=== PATIENT | male | born 1950 | race Caucasian/White ===

== ENCOUNTER → 2019-12-24 15:16 | Outpatient (BNVA) | payer MEDICARE, SELFPAY | PROVIDERS: PCP Internal Medicine Endocrinology, Diabetes & Metabolism; Visit Provider Urology | DX: Z76.89 Persons encountering health services in other specified circumstances (principal) | CPT/HCPCS: 99212 ==

== ENCOUNTER → 2020-02-05 09:13 | Outpatient (BNVA) | payer MEDICARE, SELFPAY | PROVIDERS: PCP Internal Medicine Endocrinology, Diabetes & Metabolism; Visit Provider Urology | DX: E29.1 Testicular hypofunction (principal) | CPT/HCPCS: Q3014 ==

== ENCOUNTER → 2020-08-04 15:39 | Outpatient (BNVA) | payer MEDICARE, SELFPAY | PROVIDERS: Visit Provider Urology | DX: Z13.89 Encounter for screening for other disorder (principal) | CPT/HCPCS: Q3014 ==

== ENCOUNTER → 2021-02-03 10:33 | Outpatient (BNVA) | payer MEDICARE, SELFPAY | PROVIDERS: Visit Provider Urology | DX: E29.1 Testicular hypofunction (principal); N41.9 Inflammatory disease of prostate, unspecified; R10.2 Pelvic and perineal pain | CPT/HCPCS: Q3014 ==

== ENCOUNTER → 2021-11-11 14:44 | Outpatient (BNVA) | payer MEDICARE, SELFPAY | PROVIDERS: PCP Internal Medicine; Visit Provider Urology | DX: N41.9 Inflammatory disease of prostate, unspecified (principal); E29.1 Testicular hypofunction; N32.0 Bladder-neck obstruction; N52.01 Erectile dysfunction due to arterial insufficiency | CPT/HCPCS: 99212 ==

== ENCOUNTER → 2022-05-17 15:13 | Outpatient (BNVA) | payer MEDICARE, SELFPAY | PROVIDERS: PCP Internal Medicine; Visit Provider Urology | DX: N41.9 Inflammatory disease of prostate, unspecified (principal); E29.1 Testicular hypofunction; N32.0 Bladder-neck obstruction; E11.42 Type 2 diabetes mellitus with diabetic polyneuropathy; Z79.82 Long term (current) use of aspirin; Z79.899 Other long term (current) drug therapy | CPT/HCPCS: 99212 ==

== ENCOUNTER → 2022-06-08 14:09 | Outpatient (BNVA) | payer MEDICARE, SELFPAY | PROVIDERS: PCP Internal Medicine; Visit Provider Urology | DX: C61 Malignant neoplasm of prostate (principal); E29.1 Testicular hypofunction; E11.40 Type 2 diabetes mellitus with diabetic neuropathy, unspecified | CPT/HCPCS: 11980; J3490 ==

== ENCOUNTER 2022-10-13 10:32 | Outpatient (AMB) | payer MEDICARE, SELFPAY ==
--- NOTE | 2022-10-13 10:32 | MHC.OFFVIS ---
Intake Intake Visit Reasons: 4M Testo(set) Intake Note: Pt presents as a telehealth appt for a 4 month follow up testosterone. Allergies acetaminophen [ACETAMINOPHEN] Allergy (Unknown, Verified 10/13/22 10:32) UNKNOWN ciprofloxacin [From CIPRO] Allergy (Unknown, Verified 10/13/22 10:32) UNKNOWN codeine [CODEINE] Allergy (Unknown, Verified 10/13/22 10:32) UNKNOWN erythromycin base [ERYTHROMYCIN BASE] Allergy (Unknown, Verified 10/13/22 10:32) UNKNOWN morphine [MORPHINE] Allergy (Unknown, Verified 10/13/22 10:32) UNKNOWN Acetamin Allergy (Unknown, Uncoded 10/13/22 10:32) Unknown Erythromycin Allergy (Unknown, Uncoded 10/13/22 10:32) Unknown Medication List - Last Reconciled 10/13/22 by Venkata Katz MD amlodipine 10 mg PO DAILY aspirin 81 mg PO DAILY atorvastatin 80 mg PO DAILY blood sugar diagnostic As directed carvedilol 6.25 mg PO BID docusate sodium 100 mg PO BID insulin glargine 50 units subcut DAILY insulin lispro (Humalog KwikPen (U-100) Insulin) subcut insulin syringe-needle U-100 (BD Insulin Syringe) As directed lancets As directed levothyroxine 125 mcg PO DAILY levothyroxine mcg PO lidocaine HCl 2% PO oxycodone 10 mg PO QID PRN oxycodone ER 0 mg PO pantoprazole 20 mg PO DAILY pen needle, diabetic As directed syringe with needle (Monoject TB) As directed tamsulosin 0.4 mg PO DAILY 90 days testosterone (Testim) 1 tube transdermal DAILY 30 days HPI HPI Comments History of Present Illness Details Dimitri is a pleasant male. He is a patient of Dr Davenport. He has seen flowing urologic conditions - prostatitis - hypogonadism - diabetes with neuropathy - bladder thickening Telemedicine Evaluation 15 min Consultation [facility] Video attempted Did not think that test pill was helpful Current T 233 Will trial Testim ointment Lower urinary tract symptoms Detrusor hypertrophy with impaired contractility Current therapy tamsulosin Labs Hypogonadism: Side effects with significant pelvic pain He presents today for further evaluation and followup of his hypogonadism, - had low T with treatment many years - has trialled different administration protocols with topical related and injectable November 2019, skin allergy to patches and gels Initial symptoms include erectile dysfunction Yes decreased libido Yes change in mood/depression Yes in muscle size/strength Yes increased fatigue/malaise Yes increased abdominal fat No tender breasts/gynecomastia No hair loss No osteopenia No The onset of symptoms has been gradual. Laboratory results 06/04 T 130 - PSA < 0.1, 07/05 T 150, 07/05 T 313, 09/04 T 545, 01/04 T 277, HCT 45, 09/07 500 - 01/05 898, 01/06 PSA 0.4 T 400, 05/11 T 143 P 0.2, 10/08 T 233 Current therapy includes gel/cream exogenous testosterone - does not like, Testopel not effective Prior therapy includes testosterone PFS Medical History Anal pain Diabetes mellitus, type II Erectile dysfunction due to arterial insufficiency External hemorrhoids HTN (hypertension) Hypogonadism in male Infective urethritis Prostatitis Urethral stricture Surgical History History of surgery Review of Systems Const All systems reviewed & are unremarkable except as noted in HPI and below Reports no additional complaints Resp Reports no additional complaints GI Reports no additional complaints Reports as per HPI Musc Reports no additional complaints Physical Exam Telemedicine evaluation Appropriate responses Regular breathing rate and rhythm HEENT Head: Yes normal to inspection Ears: hearing grossly normal bilaterally Eyes General: appearance normal, both eyes and all related structures Neck Neck: Yes normal visual inspection Chest Chest palpation & inspection: normal inspection of the chest Resp Effort & Inspection: normal respiratory effort and able to speak in complete sentences Assessment & Plan Assessment & Plan (1) Hypogonadism in male: Code(s): E29.1 - Testicular hypofunction (2) Pelvic pain in male: Code(s): R10.2 - Pelvic and perineal pain Plan One month follow-up tele Medications: New testosterone (Testim) 1 tube transdermal DAILY 30 days 150 grams 0RF E29.1 - Testicular hypofunction Patient Instructions: Imaging studies, laboratory and physical exam results were discussed and reviewed in detail. No major barriers to patient understanding were identified. An opportunity to ask questions regarding the treatment plan was provided. All questions were answered. The patient expressed understanding and agreement with the above treatment plan. The patient is aware they should contact our office by phone for worsening of their current condition or the appearance of new urologic symptoms. Compliance is encouraged with any medications and followup testing that is ordered. It is a privilege to participate in the urologic care of your patient. If you have any questions or concerns regarding treatment for the above conditions, or other urologic issues, please do not hesitate to contact me. The office telephone contact is [phone]. This note is constructed using voice recognition software. While every effort has been made to ensure accuracy real estate account executive errors may have been included. Yours sincerely, Dr Venkata Katz MD, [facility] - Urology Providers of Expert, Compassionate Care for the Genitourinary System Telehealth Telehealth Location of provider rendering services: practice address Location of patient: address on file Patient Identification confirmed using: Name, : Yes Telehealth method: video Patient verbally consented to treatment: Yes Patient verbally consented to billing insurance company: Yes Patient informed of any privacy concerns related to visit: Yes Coding Level of Care Code Tele Est Pt Level 4 (47633) Diagnoses Hypogonadism in male E29.1 Pelvic pain in male R10.2
== END 2022-10-13 11:53 | disposition home or self-care (01) ==
LOC: HO.HUSH 10:32
PROVIDERS: PCP Internal Medicine; Visit Provider Urology
DX: E29.1 Testicular hypofunction (principal); R10.2 Pelvic and perineal pain
CPT/HCPCS: 99214

== ENCOUNTER → 2022-10-13 10:32 | Outpatient (BNVA) | payer MEDICARE, SELFPAY | PROVIDERS: PCP Internal Medicine; Visit Provider Urology ==

== ENCOUNTER 2022-11-30 09:20 | Outpatient (AMB) | payer MEDICARE, SELFPAY ==
--- NOTE | 2022-11-30 09:33 | A.OFFVIS_ITS ---
Intake Intake Visit Reasons: 4w follow up Intake Note: Patient is present for Telephone Follow up Urology Med: Tamsulosin (Patient states he is no longer taking Testosterone and wishes not to start again) Antibiotic Allergy: Cipro, Erythromycin Blood Thinner: Aspirin Pharmacy: [facility] Allergies acetaminophen [ACETAMINOPHEN] Allergy (Unknown, Verified 11/30/22 09:35) UNKNOWN ciprofloxacin [From CIPRO] Allergy (Unknown, Verified 11/30/22 09:35) UNKNOWN codeine [CODEINE] Allergy (Unknown, Verified 11/30/22 09:35) UNKNOWN erythromycin base [ERYTHROMYCIN BASE] Allergy (Unknown, Verified 11/30/22 09:35) UNKNOWN morphine [MORPHINE] Allergy (Unknown, Verified 11/30/22 09:35) UNKNOWN Acetamin Allergy (Unknown, Uncoded 11/30/22 09:35) Unknown Erythromycin Allergy (Unknown, Uncoded 11/30/22 09:35) Unknown Medication List - Last Reconciled 11/30/22 by Venkata Katz MD amlodipine 10 mg PO DAILY aspirin 81 mg PO DAILY atorvastatin 80 mg PO DAILY blood sugar diagnostic As directed carvedilol 6.25 mg PO BID docusate sodium 100 mg PO BID insulin glargine 50 units subcut DAILY insulin lispro (Humalog KwikPen (U-100) Insulin) subcut insulin syringe-needle U-100 (BD Insulin Syringe) As directed lancets As directed levothyroxine 125 mcg PO DAILY levothyroxine mcg PO lidocaine HCl 2% PO oxycodone 10 mg PO QID PRN oxycodone ER 0 mg PO pantoprazole 20 mg PO DAILY pen needle, diabetic As directed syringe with needle (Monoject TB) As directed HPI HPI Comments History of Present Illness Details Dimitri is a pleasant male. He is a patient of Dr Davenport. He has seen flowing urologic conditions - prostatitis - hypogonadism - diabetes with neuropathy - bladder thi ckening Telemedicine Evaluation 15 min Consultation [employer] Video attempted Had undergone testosterone seed implant previously Current off alpha blockers Happy with current voiding parameters Dealing with episode of gout Follow-up 12 months Lower urinary tract symptoms Detrusor hypertrophy with impaired contractility Prior therapy tamsulosin Hypogonadism: Side effects with significant pelvic pain He presents today for further evaluation and followup of his hypogonadism, - had low T with treatment many years - has trialled different administration protocols with topical related and injectable November 2019, skin allergy to patches and gels Initial symptoms include erectile dysfunction Yes decreased libido Yes change in mood/depression Yes in muscle size/strength Yes increased fatigue/malaise Yes The onset of symptoms has been gradual. Laboratory results 06/04 T 130 - PSA < 0.1, 07/05 T 150, 07/05 T 313, 09/04 T 545, 01/04 T 277, HCT 45, 09/07 500 - 01/05 898, 01/06 PSA 0.4 T 400, 05/11 T 143 P 0.2, 10/08 T 233 Current therapy includes gel/cream exogenous testosterone - does not like, Testopel not effective Prior therapy includes testosterone [facility] Medical History Diabetes mellitus, type II HTN (hypertension) Erectile dysfunction due to arterial insufficiency Hypogonadism in male Infective urethritis Urethral stricture Prostatitis External hemorrhoids Anal pain Surgical History History of surgery Review of Systems Const All systems reviewed & are unremarkable except as noted in HPI and below Reports no additional complaints Resp Reports no additional complaints GI Reports no additional complaints Reports as per HPI Musc Reports no additional complaints Physical Exam Telemedicine evaluation Appropriate responses Regular breathing rate and rhythm HEENT Head: Yes normal to inspection Ears: hearing grossly normal bilaterally Eyes General: appearance normal, both eyes and all related structures Neck Neck: Yes normal visual inspection Chest Chest palpation & inspection: normal inspection of the chest Resp Effort & Inspection: normal respiratory effort and able to speak in complete sentences Assessment & Plan Assessment & Plan (1) Hypogonadism in male: Code(s): E29.1 - Testicular hypofunction (2) Bladder outlet obstruction: Code(s): N32.0 - Bladder-neck obstruction Medications: Discontinued tamsulosin Discontinued Reason: Patient Completed Course 0.4 mg PO DAILY 90 days 90 caps 1RF N32.0 - Bladder-neck obstruction testosterone (Testim) Discontinued Reason: Patient no longer taking 1 tube transdermal DAILY 30 days 150 grams 0RF E29.1 - Testicular hypofunction Telehealth Telehealth Location of provider rendering services: practice address Location of patient: address on file Patient Identification confirmed using: Name, : Yes Telehealth method: video Patient verbally consented to treatment: Yes Patient verbally consented to billing insurance company: Yes Patient informed of any privacy concerns related to visit: Yes Coding Level of Care Code Tele Est Pt Level 3 (80810) Diagnoses Hypogonadism in male E29.1 Bladder outlet obstruction N32.0
== END 2022-11-30 10:02 | disposition home or self-care (01) ==
LOC: HO.HUSH 09:20
PROVIDERS: PCP Internal Medicine; Visit Provider Urology
DX: E29.1 Testicular hypofunction (principal); N32.0 Bladder-neck obstruction
CPT/HCPCS: 99213

== ENCOUNTER → 2022-11-30 09:20 | Outpatient (BNVA) | payer MEDICARE, SELFPAY | PROVIDERS: PCP Internal Medicine; Visit Provider Urology ==

== ENCOUNTER 2023-04-17 12:51 | Outpatient (REF) | payer MEDICARE, SELFPAY ==
[2023-04-17 16:17] LABS: Hematocrit 43.9 % (42.0-52.0)
[2023-04-17 16:45] LABS: Appearance Urine Clear; Color Urine Yellow; Glucose Urine UA 250 mg/dL (Negative); Leukocyte Esterase Urine Negative (Negative); Nitrite Urine Negative (Negative); PH 6.5 (5.0-9.0); Specific Gravity - Urine 1.015 (1.005-1.025); Urine Blood Negative (Negative); Urine Ketones Negative (Negative); Urine Protein >=1000 (4+) mg/dL (Neg-Trace)
[2023-04-17 16:48] LABS: Bacteria Urine None Seen (None Seen); Prostate Specific Antigen 0.18 ng/mL (<0.05-4.0); RBC Urine 0-2 /HPF (0-2); Squamous Epithelial Cell Urine 0-2 /HPF (0-2); WBC Urine 0-5 /HPF (0-5)
[2023-04-22 15:53] LABS: Testosterone, Total 180 ng/dL (250-1100)
== END 2023-04-17 12:52 | disposition home or self-care (01) ==
LOC: HO.HMGCLDS 12:51
PROVIDERS: PCP Internal Medicine; Visit Provider Urology
DX: R10.2 Pelvic and perineal pain (principal); N41.9 Inflammatory disease of prostate, unspecified; N32.0 Bladder-neck obstruction; E29.1 Testicular hypofunction; C61 Malignant neoplasm of prostate; Z12.5 Encounter for screening for malignant neoplasm of prostate
CPT/HCPCS: 36415; 81001; 84153; 84403; 85014; 87086

== ENCOUNTER 2023-11-28 13:19 | Outpatient (AMB) | payer MEDICARE, SELFPAY ==
--- NOTE | 2023-11-28 13:57 | A.OFFVIS_ITS ---
Intake Visit Reasons: 1y follow up Intake Note: Patient is present for Follow up Prostatitis Urology Med: Tamsulosin, Testosterone Antibiotic Allergy: Cipro, Erythromycin Blood Thinner: Aspirin Personal Development Educator Required: No Accompanied by: Self / Same As Patient Allergies acetaminophen [ACETAMINOPHEN] Allergy (Unknown, Verified 11/28/23 14:02) UNKNOWN ciprofloxacin [From CIPRO] Allergy (Unknown, Verified 11/28/23 14:02) UNKNOWN codeine [CODEINE] Allergy (Unknown, Verified 11/28/23 14:02) UNKNOWN erythromycin base [ERYTHROMYCIN BASE] Allergy (Unknown, Verified 11/28/23 14:02) UNKNOWN morphine [MORPHINE] Allergy (Unknown, Verified 11/28/23 14:02) UNKNOWN Acetamin Allergy (Unknown, Uncoded 11/28/23 14:02) Unknown Erythromycin Allergy (Unknown, Uncoded 11/28/23 14:02) Unknown HPI Comments Details: Dimitri is a pleasant male. He is a patient of Dr Davenport. He has seen flowing urologic conditions - prostatitis - hypogonadism - diabetes with neuropathy - bladder thickening Current off alpha blockers Feels voiding parameters have slowed down Recommend office cystoscopy Would require diazepam Has upcoming vacation for rectal fissure and hemorrhoids Dealing with episode of gout Follow-up 12 months Lower urinary tract symptoms Detrusor hypertrophy with impaired contractility Prior therapy tamsulosin Hypogonadism: Side effects with significant pelvic pain He presents today for further evaluation and followup of his hypogonadism, - had low T with treatment many years - has trialled different administration protocols with topical related and injectable November 2019, skin allergy to patches and gels Initial symptoms include erectile dysfunction Yes decreased libido Yes change in mood/depression Yes in muscle size/strength Yes increased fatigue/malaise Yes The onset of symptoms has been gradual. Laboratory results 06/04 T 130 - PSA < 0.1, 07/05 T 150, 07/05 T 313, 09/04 T 545, 01/04 T 277, HCT 45, 09/07 500 - 01/05 898, 01/06 PSA 0.4 T 400, 05/11 T 143 P 0.2, 10/08 T 233, 04/11 180 Current therapy includes gel/cream exogenous testosterone - does not like, Testopel not effective Prior therapy includes testosterone [facility] Medical History Diabetes mellitus, type II HTN (hypertension) Erectile dysfunction due to arterial insufficiency Hypogonadism in male Infective urethritis Urethral stricture Prostatitis External hemorrhoids Anal pain Surgical History History of surgery Review of Systems Const Denies chills and Denies fever(s) Card Reports no additional complaints and Denies syncope Resp Denies cough GI Denies abdominal pain and Denies heartburn Reports as per HPI and Denies change in libido Neuro Denies syncope Psych Denies change in libido Endo Denies change in libido Physical Exam Const General: cooperative, healthy appearing, comfortable and no acute distress Orientation/consciousness: patient oriented x3 HEENT Face and sinus: Yes normal facial exam Mouth: moist mucous membranes Neck Neck: Yes normal visual inspection, Yes full ROM and Yes trachea midline Chest Chest palpation & inspection: normal inspection of the chest Resp Effort & Inspection: normal respiratory effort, able to speak in complete sentences and no respiratory distress GI Inspection: Yes normal to inspection Back/Spine/Pelvis Cervical Spine: normal cervical lordosis Thoracic/Lumbar Spine: thoracic and lumbar spine normal to inspection Skin General skin exam: no rashes or lesions noted Neuro General: patient oriented x3, gait normal, tone normal and moves all extremities Extrem General: Yes normal to inspection and Yes capillary refill normal Assessment & Plan Assessment & Plan (1) Bladder outlet obstruction: Code(s): N32.0 - Bladder-neck obstruction Category: Medical (2) Pelvic pain in male: Code(s): R10.2 - Pelvic and perineal pain Category: Medical (3) Hypogonadism in male: Code(s): E29.1 - Testicular hypofunction Category: Medical Plan Office cystoscopy Medications: New diazepam Take medication after arrival at office 2 mg PO BID PRN 2 tabs 0RF anxiety 1 day N32.0 - Bladder-neck obstruction, R45.89 - Other symptoms and signs involving emotional state Discontinued testosterone (Testim) Discontinued Reason: Patient Completed Course 1 packet transdermal DAILY 30 days 150 grams 5RF E29.1 - Testicular hypofunction Patient Instructions: Imaging studies, laboratory and physical exam results were discussed and reviewed in detail. No major barriers to patient understanding were identified. An opportunity to ask questions regarding the treatment plan was provided. All questions were answered. The patient expressed understanding and agreement with the above treatment plan. The patient is aware they should contact our office by phone for worsening of their current condition or the appearance of new urologic symptoms. Compliance is encouraged with any medications and followup testing that is ordered. It is a privilege to participate in the urologic care of your patient. If you have any questions or concerns regarding treatment for the above conditions, or other urologic issues, please do not hesitate to contact me. The office telephone contact is [phone]. This note is constructed using voice recognition software. While every effort has been made to ensure accuracy speech correction assistant errors may have been included. Yours sincerely, Dr Venkata Katz MD, [facility] - Urology Providers of Expert, Compassionate Care for the Genitourinary System Coding Level of Care Code Est Pt Level 4 (72341) Diagnoses Bladder outlet obstruction N32.0 Pelvic pain in male R10.2 Hypogonadism in male E29.1
== END 2023-11-28 14:29 | disposition home or self-care (01) ==
PROVIDERS: PCP Internal Medicine; Visit Provider Urology
DX: N32.0 Bladder-neck obstruction (principal); R10.2 Pelvic and perineal pain; E29.1 Testicular hypofunction
CPT/HCPCS: 99214

== ENCOUNTER → 2023-11-28 13:19 | Outpatient (BNVA) | payer MEDICARE, SELFPAY | PROVIDERS: PCP Internal Medicine; Visit Provider Urology | DX: E29.1 Testicular hypofunction (principal); N32.89 Other specified disorders of bladder; N32.0 Bladder-neck obstruction; R10.2 Pelvic and perineal pain; E11.40 Type 2 diabetes mellitus with diabetic neuropathy, unspecified | CPT/HCPCS: 99212 ==

== ENCOUNTER 2023-12-28 10:51 | Outpatient (AMB) | payer MEDICARE, SELFPAY ==
--- NOTE | 2023-12-28 11:06 | A.OFFVIS_ITS ---
Intake Visit Reasons: cysto Intake Note: Patient is Present for Cystoscopy Urology Med: Tamsulosin Antibiotic Allergy: Erythromycin, Cipro Blood Thinner: Aspirin URO- G Disposable Cystoscope lot: [id number] exp:06/27/2026 Allergies acetaminophen [ACETAMINOPHEN] Allergy (Unknown, Verified 11/28/23 14:02) UNKNOWN ciprofloxacin [From CIPRO] Allergy (Unknown, Verified 11/28/23 14:02) UNKNOWN codeine [CODEINE] Allergy (Unknown, Verified 11/28/23 14:02) UNKNOWN erythromycin base [ERYTHROMYCIN BASE] Allergy (Unknown, Verified 11/28/23 14:02) UNKNOWN morphine [MORPHINE] Allergy (Unknown, Verified 11/28/23 14:02) UNKNOWN Acetamin Allergy (Unknown, Uncoded 11/28/23 14:02) Unknown Erythromycin Allergy (Unknown, Uncoded 11/28/23 14:02) Unknown HPI Comments Details: Dimitri is a pleasant male. He is a patient of Dr Davenport. He has seen flowing urologic conditions - prostatitis - hypogonadism - diabetes with neuropathy - bladder thickening Here for office cystoscopy Tightening of the prostate Recommend prostate procedure Given prostate size would lean towards TURP with plasma button Lower urinary tract symptoms Detrusor hypertrophy with impaired contractility Prior therapy tamsulosin Hypogonadism: Side effects with significant pelvic pain He presents today for further evaluation and followup of his hypogonadism, - had low T with treatment many years - has trialled different administration protocols with topical related and injectable November 2019, skin allergy to patches and gels Initial symptoms include erectile dysfunction Yes decreased libido Yes change in mood/depression Yes in muscle size/strength Yes increased fatigue/malaise Yes The onset of symptoms has been gradual. Laboratory results 06/04 T 130 - PSA < 0.1, 07/05 T 150, 07/05 T 313, 09/04 T 545, 01/04 T 277, HCT 45, 09/07 500 - 01/05 898, 01/06 PSA 0.4 T 400, 05/11 T 143 P 0.2, 10/08 T 233, 04/11 180 Current therapy includes gel/cream exogenous testosterone - does not like, Testopel not effective Prior therapy includes testosterone PFSH Medical History Diabetes mellitus, type II HTN (hypertension) Erectile dysfunction due to arterial insufficiency Hypogonadism in male Infective urethritis Urethral stricture Prostatitis External hemorrhoids Anal pain Surgical History History of surgery Review of Systems Const Denies chills and Denies fever(s) Card Reports no additional complaints and Denies syncope Resp Denies cough GI Denies abdominal pain and Denies heartburn Reports as per HPI and Denies change in libido Neuro Denies syncope Psych Denies change in libido Endo Denies change in libido Physical Exam Const General: cooperative, healthy appearing, comfortable and no acute distress Orientation/consciousness: patient oriented x3 HEENT Face and sinus: Yes normal facial exam Mouth: moist mucous membranes Neck Neck: Yes normal visual inspection, Yes full ROM and Yes trachea midline Chest Chest palpation & inspection: normal inspection of the chest Resp Effort & Inspection: normal respiratory effort, able to speak in complete sentences and no respiratory distress GI Inspection: Yes normal to inspection Back/Spine/Pelvis Cervical Spine: normal cervical lordosis Thoracic/Lumbar Spine: thoracic and lumbar spine normal to inspection Skin General skin exam: no rashes or lesions noted Neuro General: patient oriented x3, gait normal, tone normal and moves all extremities Extrem General: Yes normal to inspection and Yes capillary refill normal Office Procedures Cystoscopy Consent Discussed risk and benefit or proposed procedure with the patient. Information consent for procedure given to the patient. Discussed technical aspects, risks, benefits and alternatives in full. Addressed all of the patient's questions and concerns regarding the procedure. The patient demonstrated knowledge and understanding. They wish to proceed with this procedure. Preparation The patient was prepped in the usual manner. A knife setter grinder machine was present and in the room. Genitalia was prepped with betadine solution in a sterile manner. Lidocaine Jelly 2% was placed into the urethra and 16Fr flexible Olympus cystoscope was inserted into the meatus after adequate lubrication. Procedure Cystoscopy performed using a disposable Urovue digital 16 Tamazight cystoscope. Meatus circumcised Urethra anterior and posterior urethra Prostatic Urethra bladder outlet obstruction Bladder examination with retroflexion of cystoscope Bladder Orifices normal shape and position Bladder Capacity normal Trabeculations grade grade 1 Cellule Formation - Diverticulum Formation - Mucosal Erythema - Bladder Tumor - [id number] DISPOSABLE SCOPE URO-G FLEXIBLE SCOPE Procedure code (CPT) selection complete Office Meds lidocaine HCl 2 % mucosal jelly in applicator Performing Provider: Venkata Katz MD Performing Location: [facility] [place] [facility] [place] [facility] Administered by: Sreedhar Wei LPN on 12/28/23 11:49 Dose Route Admin Location Dispensed Lot Number Expiration Date NDC [employer] 10 mL intra-urethral 10 mL nitrofurantoin monohydrate/macrocrystals 100 mg capsule Performing Provider: Venkata Katz MD Performing Location: [facility] [place] [facility] Administered by: Sreedhar Wei LPN on 12/28/23 11:49 Dose Route Admin Location Dispensed Lot Number Expiration Date NDC [employer] 100 mg PO 1 cap naproxen 500 mg tablet Performing Provider: Venkata Katz MD Performing Location: [facility] [place] [facility] Administered by: Sreedhar Wei LPN on 12/28/23 11:49 Dose Route Admin Location Dispensed Lot Number Expiration Date NDC [employer] 500 mg PO 1 tab Assessment & Plan Assessment & Plan (1) Bladder outlet obstruction: Code(s): N32.0 - Bladder-neck obstruction Category: Medical Plan We discussed the nature of the decision and reasonable options for performing a prostate intervention. Interventions include TURP, GreenLight laser enucleation of the prostate, GreenLight laser ablation of the prostate, transurethral incision of the prostate, and I-Tend prostate procedure. Options such as medical therapy were discussed. The relative uncertainties and benefits related to each alternate procedure were adequately discussed. General surgical risks including, but not limited to, pain, bleeding, infection, myocardial infarction, pulmonary embolus, deep vein thrombosis and cerebrovascular accident which may result in further hospitalization were discussed. Full disclosure of the procedure as well as all major risks, benefits and complications were discussed including but not limited to damage to the urethra or bladder neck, recurrent BPH, retrograde ejaculation, bladder infection, urge, de tj frequency, incomplete emptying, dysuria, remote chance of erectile dysfunction, epididymitis, and meatal stenosis. The success rate of the procedure was discussed. Success of the procedure in the short-term does not necessarily guarantee that long-term success will be maintained. Suitable follow up will need to be maintained. The patient showed understanding of discussion. An opportunity was provided for questions to be answered and wishes to proceed with the following procedure. - prostate TURP - plasma button Orders: Orders AMB Cystoscopy 12/28/23 N32.0 - Bladder-neck obstruction AMB Urinalysis Automated 12/28/23 Z13.9 - Encounter for screening, unspecified Patient Instructions: Imaging studies, laboratory and physical exam results were discussed and reviewed in detail. No major barriers to patient understanding were identified. An opportunity to ask questions regarding the treatment plan was provided. All questions were answered. The patient expressed understanding and agreement with the above treatment plan. The patient is aware they should contact our office by phone for worsening of their current condition or the appearance of new urologic symptoms. Compliance is encouraged with any medications and followup testing that is ordered. It is a privilege to participate in the urologic care of your patient. If you have any questions or concerns regarding treatment for the above conditions, or other urologic issues, please do not hesitate to contact me. The office telephone contact is [phone]. This note is constructed using voice recognition software. While every effort has been made to ensure accuracy teacher visually impaired errors may have been included. Yours sincerely, Dr Venkata Katz MD, [facility] - Urology Providers of Expert, Compassionate Care for the Genitourinary System Coding Level of Care Code Est Pt Level 4 (78005) Diagnoses Bladder outlet obstruction N32.0 CPT Codes Cystoscopy - CPT: [id number] ([id number])
== END 2023-12-28 12:29 | disposition home or self-care (01) ==
LOC: HO.HUSH 10:51
PROVIDERS: PCP Internal Medicine; Visit Provider Urology
DX: N32.0 Bladder-neck obstruction (principal)
CPT/HCPCS: 52000; 99214

== ENCOUNTER → 2023-12-28 10:51 | Outpatient (BNVA) | payer MEDICARE, SELFPAY | PROVIDERS: PCP Internal Medicine; Visit Provider Urology | DX: N32.0 Bladder-neck obstruction (principal) | CPT/HCPCS: 52000; 99212 ==

== ENCOUNTER 2024-02-13 05:38 | Outpatient (REF) | payer MEDICARE, SELFPAY ==
[2024-02-13 05:41] LABS: MANUAL DIFF FLAG NO
[2024-02-13 06:25] LABS: Anion Gap 17 (12-20); Blood Urea Nitrogen 90 mg/dL (9-16); Calcium 8.4 mg/dL (8.4-10.2); Carbon Dioxide 31 mmol/L (22-29); Chloride 86 mmol/L (96-108); Estimated Glomerular Filt Rate 20; Glucose Random 122 mg/dL (60-115); Potassium 4.3 mmol/L (3.3-5.1); Sodium 130 mmol/L (135-145)
[2024-02-13 06:28] LABS: Basophils Percent Auto 0.3 % (0-2); Eosinophils Absolute Auto 0.4 X10*3/uL (0.0-0.4); Eosinophils Percent Auto 4.8 % (0-4); Hematocrit 29.8 % (42.0-52.0); Hemoglobin 10.3 g/dl (14.0-18.0); Imm Gran Abs Auto 0.04 X10*3/uL (0.00-0.03); Imm Gran Pct Auto 0.5 % (0.0-0.4); Lymphocytes Percent Auto 11.1 % (20-40); Mean Corpuscular HGB Conc 34.6 g/dl (31.0-36.0); Mean Corpuscular Hemoglobin 30.7 pg (27.0-33.0); Mean Corpuscular Volume 88.7 fL (80.0-98.0); Mean Platelet Volume 10.8 fL (9.4-12.4); Monocytes Absolute Auto 0.9 X10*3/uL (0.1-1.2); Monocytes Percent Auto 10.1 % (2-11); Neutrophils Absolute Auto 6.4 x10*3/uL (2.0-8.3); Neutrophils Percent Auto 73.2 % (45-73); Platelet Count 276 X10*3/uL (160-400); Red Blood Count 3.36 X10*6/uL (4.60-5.80); Red Cell Distribution Width 13.8 % (11.0-16.0); White Blood Count 8.7 X10*3/uL (4.8-10.8)
[2024-02-13 07:31] LABS: Estimated Average Glucose 163 mg/dL; Hemoglobin A1C 163.1124 umol/L; Hemoglobin A1c % 7.3 % (<6.0); Total Hemoglobin (HGBA1C) 2871.4278 umol/L
== END 2024-02-13 05:39 | disposition home or self-care (01) ==
LOC: HO.MMNH1L 05:38
DX: I10 Essential (primary) hypertension (principal); E11.9 Type 2 diabetes mellitus without complications
CPT/HCPCS: 36415; 80048; 83036; 85025

== ENCOUNTER 2024-03-31 11:45 | Day surgery (SDC) | payer MEDICARE, SELFPAY ==
--- OUTSIDE RECORDS SUMMARY | 2024-03-04 11:13 | XMS_ITS ---
Author Organization [facility] Address [address] [place] [address] Phone Care Team Providers Care Batt Machine Operator Name Role Phone Praful Davenport MD Primary Care Provider [phone] [facility], Unavailable [phone] Plan of Treatment No Plan of Treatment Recorded Assessments Includes: Assessments for all patient encounters No Assessments Recorded Medical Equipment - Implanted Devices Includes: Current and historical Devices No Medical Equipment Recorded Medications Administered Includes: Administered Medications in patient's chart No Administered Medications Recorded Results Includes: Results from 03/04/2023 through 03/04/2024 No Results Recorded For Specified Dates History of Present Illness History of Present Illness not supported for this document type No History of Present Illness Recorded Social History No Social History Recorded - Smoking Status Unknown Medical History Includes: Medical History in patient's chart No Medical History Recorded Family History Includes: Family History in patient's chart No Family History Recorded Review of Systems Review of Systems not supported for this document type No Review of Systems Recorded Mental Status No Mental Status Recorded Functional Status No Functional Status Recorded Physical Exam Physical Exam not supported for this document type No Physical Exam Recorded Insurance Includes: Active Insurance Policies Plan Name Member ID Group # Subscriber Relationship Effect luis Dates 1 - [facility] [id number] Dimitri Snow Self Clinical Notes Includes: Signed Clinical Notes starting from 02/26/2022 No Clinical Notes Recorded
--- OUTSIDE RECORDS SUMMARY | 2024-03-04 11:14 | XMS_ITS ---
Care Plan - [facility] Created on: March 04, 2024 Dimitri Snow : 1950 Sex: Male Author Organization [facility] Address [address] [place] [address] Phone Care Team Providers Care Helicopter Officer Name Role Phone Praful Davenport MD Primary Care Provider [phone] [facility] Unavailable [phone]
--- OUTSIDE RECORDS SUMMARY | 2024-03-04 11:14 | XMS_ITS | Data Portability ---
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 Plan of Treatment Reminders Order Date Submit Date Provider Last Modified By Organization Details Last Modified Time Details Appointments None record ed. Lab None record ed. Referral None record ed. Procedures None record ed. Surgeries None record ed. Imaging None record ed. Medication Orders None record ed. Patient TargetsNo targets recorded. Patient InstructionsNo instructions recorded. Reason for Referral None Reported. Results Created Date Observation Date Name Description Value Unit Range Abnormal Flag Note LastModifiedBy Organization Detail LastModifiedTime 01/11/2011/04/2019 US, thyro id No observ ation record ed. [facility] [address] [place] [address], [id number], 01/14/2024 08:50:42 01/14/2010/04/2023 US, neck, soft tissu e No observ ation record ed. reppsteiner Not Available 12/18 09:42:47 01/14/20 24 07/20/2022 US, neck, soft tissu e No observ ation record ed. reppsteiner Not Available 12/18 09:42:47 01/14/20 24 11/04/2019 CT, neck, soft tissu e, w/ contr ast No observ ation record ed. reppsteiner Not Available 12/18 09:42:47 01/16/2010/04/2023 US, neck, soft tissu e No observ ation record ed. [facility] ([facility]) [address] [place], [address], 01/17/2024 12:46:44 Result Notes None recorded. Problems Name Problem SNOMED Code Status Onset Date Resolution Date Notes Provider Name and Address Organization Details Recorded Time Stomatitis 58957485 Active 2015 Oral thrush ; Note: Date Diagno sed: 016 4:50 PM (B37.0 ) Not Available [facility] 4 02:57:04 Candidiasis of mouth 59808625 Active 2015 Oral thrush ; Note: Date Diagno sed: 016 4:50 PM (B37.0 ) Not Available [facility] 4 02:57:04 Dysphagia 56258364 Active 2015 Dyspha shelby, unspec ified; Note: Date Diagno sed: 016 4:50 PM (R13.1 0) Not Available [facility] 4 02:57:05 Gastroesophag eal reflux disease without esophagitis 933454361 Active 2023 HEVER BROWER MD [address] [place] [address], [phone] , [facility] - [facility] 14:09:22 Problem Notes None recorded. Procedures Surgical History Date Name Laterality Status Provider Name and Address Organization Details Recorded Time 01/07/2024 FFL_RE completed HEVER BROWER MD [address] [place] [address], [phone], [place] - [facility] 01/07/2024 14:09:36 Imaging Results Imaging Date Name Status LastModified by Organiz ation Details LastModified Time 11/04/2019 US, thyroid completed [facility] ([facility]) [address] [place], [address], 01/14/2024 08:50:42 10/04/2023 US, neck, soft tissue completed repteiner Information not available 01/15/2024 09:42:47 07/20/2022 US, neck, soft tissue completed Information not available 01/15/2024 09:42:47 11/04/2019 CT, neck, soft tissue, w/ contrast completed Information not available 01/15/2024 09:42:47 10/04/2023 US, neck, soft tissue completed reppsteiner [facility] ([facility]) [address] [place], [address], 01/17/2024 12:46:44 Procedure Notes None recorded. Medical Equipment None Reported. Allergies Allergen ID Allergen Name Allergen Category Reaction Reaction Severity Criticality Documentation Date Start Date Code Code System Note Provider Name and Address Organization Details Recorded Time 916203 codeine sulfate medicatio n other Not available Not available 07/31/2023 28995 RxNorm React ion: unkno wn, unspe cifie d;; Not Available [facility] 4 01:23:09 737631 morphine medicatio n other Not available Not available 07/31/2023 7052 RxNorm React ion: unkno wn, unspe cifie d;; Not Available [facility] 4 01:23:10 Medications Name Sig Start Date Stop Date Status Note LastModified by Organization Details LastModified Time sure comfort pen needles 32gx5/32 32g x 4 mm misc active Not Available Not Available Not Available losartan 50 mg tablet 2015 active Medicati on ID: [id number] D uration Value: 30 Brand Name: losartan Send Method: E-Prescr ibed Sub s Allowed: subs OK Speci al Instruct ion: take 1 tablet by mouth once daily Me dication GenericN tana: losartan Not Available Not Available Not Available metformin 500 mg tablet 2015 active Medicati on ID: [id number] D uration Value: 30 Brand Name: metformi n Send Method: E-Prescr ibed Sub s Allowed: subs OK Speci al Instruct ion: take 1 tablet by mouth daily with BREAKFAS T Medica tionGene ricName: metformi n Not Available Not Available Not Available atorvasta tin 80 mg tablet TAKE 1 TABLET BY MOUTH AT BEDTIME active Not Available Not Available No t Available carvedilo l 25 mg tablet active Not Available Not Available Not Available nystatin 100,000 unit/mL oral suspensio n Take 5 ml by mouth four times a day 2015 active Medicati on ID: [id number] D uration Value: 10 Prescri bed By Name: Hever jane MD Brand Name: nystatin Send Method: E-Prescr ibed Sub s Allowed: subs OK Speci al Instruct ion: 5 ml swish and swallow four times daily x 2-4 weeks Me dication GenericN tana: nystatin Not Available Not Available Not Available prednison e 10 mg tablet active Not Available Not Available Not Available venlafaxi ne ER 75 mg capsule,e xtended release 24 hr 2015 active Medicati on ID: 544509 D uration Value: 30 Brand Name: venlafax ine Send Method: E-Prescr ibed Sub s Allowed: subs OK Speci al Instruct ion: take 1 capsule by mouth once daily with 37.5MG FOR A TOTAL DAILY DOSE OF 112MG Me dication GenericN tana: venlafax ine Not Available Not Available Not Available atorvasta tin 20 mg tablet 2015 active Medicati on ID: 222101 D uration Value: 30 Brand Name: atorvast atin Sen d Method: E-Prescr ibed Sub s Allowed: subs OK Speci al Instruct ion: take 1 tablet by mouth once daily Me dication GenericN tana: atorvast atin Not Available Not Available Not Available benztropi ne 0.5 mg tablet 2015 active Medicati on ID: [id number] D uration Value: 30 Brand Name: benztrop ine Send Method: E-Prescr ibed Sub s Allowed: subs OK Speci al Instruct ion: take 1 tablet by mouth twice a day if needed M edicatio nGeneric Name: benztrop ine Not Available Not Available Not Available carvedilo l 12.5 mg tablet active Not Available Not Available Not Available trazodone 50 mg tablet 2015 active Medicati on ID: 638461 D uration Value: 30 Brand Name: trazodon e Send Method: E-Prescr ibed Sub s Allowed: subs OK Speci al Instruct ion: take 1 tablet by mouth once daily at bedtime Medicati onGeneri cName: trazodon e Not Available Not Available Not Available polyethyl jennifer glycol 3350 17 gram oral powder packet 2014 active Medicati on ID: 668089 D uration Value: 30 Brand Name: polyethy abby glycol 3350 Sen d Method: E-Prescr ibed Sub s Allowed: subs OK Speci al Instruct ion: MIX 1 PACKET WITH 8 OUNCES OF WATER DAILY Me dication GenericN tana: polyethy abby glycol 3350 Not Available Not Available Not Available lidocaine 5 % topical cream APPLY TOPPICAL LY FOUR TIMES DAILY NEEDED FOR ANAL PAIN active Not Available Not Available No t Available Lidocaine Viscous 2 % mucosal solution APPLY A SMALL AMOUNT TO RECTUM FOUR TIMES DAILY NEEDED FOR PAIN active Not Available Not Available No t Available senna 8.6 mg tablet TAKE 2 TABLETS BY MOUTH EVERY NIGHT AT BEDTIME active Not Available Not Available No t Available FreeStyle Lancets 28 gauge 2015 active Medicati on ID: 530907 D uration Value: 25 Brand Name: FreeStyl e Lancets Send Method: E-Prescr ibed Sub s Allowed: subs OK Speci al Instruct ion: TEST BLOOD SUGAR 4 TIMES DAILY Me dication GenericN tana: FreeStyl e Lancets Not Available Not Available Not Available prednison e 20 mg tablet TAKE 1 TABLET BY MOUTH DAILY active Not Available Not Available No t Available venlafaxi ne ER 150 mg capsule,e xtended release 24 hr 2015 active Medicati on ID: 125943 D uration Value: 15 Brand Name: venlafax ine Send Method: E-Prescr ibed Sub s Allowed: subs OK Speci al Instruct ion: take 1 capsule by mouth once daily Me dication GenericN tana: venlafax ine Not Available Not Available Not Available olanzapin e 10 mg tablet 2015 active Medicati on ID: 263646 D uration Value: 30 Brand Name: olanzapi ne Send Method: E-Prescr ibed Sub s Allowed: subs OK Speci al Instruct ion: take 1/2 tablet by mouth every morning and 1 tablet by mouth daily at bedtime Medicati onGeneri cName: olanzapi ne Not Available Not Available Not Available hydralazi ne 25 mg tablet active Not Available Not Available Not Available clopidogr el 75 mg tablet TAKE 1 TABLET BY MOUTH DAILY active Not Available Not Available No t Available ciproflox acin 500 mg tablet 2014 active Medicati on ID: 112245 D uration Value: 14 Brand Name: ciproflo xacin HCl Send Method: E-Prescr ibed Sub s Allowed: subs OK Speci al Instruct ion: take 1 tablet by mouth twice a day Medi cationGe nericNam e: ciproflo xacin HCl Not Available Not Available Not Available sulfameth oxazole 800 mg-trimet hoprim 160 mg tablet 2015 active Medicati on ID: 324362 D uration Value: 28 Brand Name: sulfamet hoxazole -trimeth oprim Se nd Method: E-Prescr ibed Sub s Allowed: subs OK Speci al Instruct ion: take 1 tablet by mouth twice a day Medi cationGe nericNam e: sulfamet hoxazole -trimeth oprim Not Available Not Available Not Available omeprazol e 40 mg capsule,d elayed release TAKE 1 CAPSULE BY MOUTH DAILY active Not Available Not Available No t Available lamotrigi ne 25 mg tablet 2015 active Medicati on ID: 087745 D uration Value: 30 Brand Name: lamotrig ine Send Method: E-Prescr ibed Sub s Allowed: subs OK Speci al Instruct ion: take 1 tablet by mouth once daily for 7 days then take 2 tablets by mo uth once daily THEREAFT ER Medic ationGen ericName : lamotrig ine Not Available Not Available Not Available pantopraz ole 20 mg tablet,de layed release TAKE 1 TABLET BY MOUTH DAILY active Not Available Not Available No t Available risperido ne 2 mg tablet 2015 active Medicati on ID: 796799 D uration Value: 15 Brand Name: risperid one Send Method: E-Prescr ibed Sub s Allowed: subs OK Speci al Instruct ion: take 1 tablet by mouth at bedtime Medicati onGeneri cName: risperid one Not Available Not Available Not Available magnesium oxide 400 mg (241.3 mg magnesium ) tablet TAKE 1 TABLET BY MOUTH EVERY DAY active Not Available Not Available No t Available metoclopr amide 5 mg tablet TAKE 1 TABLET BY MOUTH TWICE DAILY FOR UP TO 20 DAYS NEEDED FOR VOMITING active Not Available Not Available No t Available tamsulosi n 0.4 mg capsule TAKE 1 CAPSULE BY MOUTH DAILY active Not Available Not Available No t Available [employer] Ultra Test strips USE DIRECTED TO CHECK BLOOD SUGAR THREE TIMES DAILY active Not Available Not Available No t Available diazepam 2 mg tablet TAKE 1 TABLET BY MOUTH TWICE DAILY NEEDED FOR ANXIETY FOR 1 DAY . TAKE MEDICATI ON AFTER ARRIVAL AT OFFICE active Not Available Not Available No t Available amlodipin e 10 mg tablet TAKE 1 TABLET BY MOUTH DAILY active Not Available Not Available No t Available pantopraz ole 40 mg tablet,de layed release TAKE 1 TABLET BY MOUTH DAILY active Not Available Not Available No t Available levothyro xine 125 mcg tablet 2015 active Medicati on ID: 325145 D uration Value: 30 Brand Name: levothyr oxine Se nd Method: E-Prescr ibed Sub s Allowed: subs OK Speci al Instruct ion: take 1 tablet by mouth once daily and 1/2 tablet ON SUNDAYS Medicati onGeneri cName: levothyr oxine Not Available Not Available Not Available nystatin 100,000 unit/gram topical cream 12/13 completed Medicati on ID: 135210 D uration Value: 7 Brand Name: nystatin Send Method: E-Prescr ibed Sub s Allowed: subs OK Medic ationGen ericName : nystatin Not Available Not Available Not Available lidocaine 5 % topical patch 2015 active Medicati on ID: 035386 D uration Value: 30 Brand Name: lidocain e Send Method: E-Prescr ibed Sub s Allowed: subs OK Speci al Instruct ion: apply 1 to 3 patches ONTO SKIN once daily 12 HOURS ON THEN 12 HOURS OF F Medica tionGene ricName: lidocain e Not Available Not Available Not Available levothyro xine 150 mcg tablet TAKE 1 TABLET BY MOUTH EVERY DAY SUNDAY THROUGH SUNDAY AND 1 AND 1/2 TABLET BY MOUTH ON SUNDAY active Not Available Not Available No t Available hydrochlo rothiazid e 12.5 mg capsule TAKE 2 CAPSULES BY MOUTH EVERY MORNING active Not Available Not Available No t Available docusate sodium 100 mg capsule TAKE 1 CAPSULE BY MOUTH TWICE DAILY active Not Available Not Available No t Available hydroxyzi ne HCl 25 mg tablet TAKE 1 TABLET BY MOUTH EVERY 8 HOURS NEEDED FOR ITCHING active Not Available Not Available No t Available hydralazi ne 50 mg tablet TAKE 1 TABLET BY MOUTH TWICE DAILY active Not Available Not Available No t Available dronabino l 10 mg capsule 2015 active Medicati on ID: 543034 D uration Value: 28 Brand Name: dronabin ol Send Method: E-Prescr ibed Sub s Allowed: subs OK Speci al Instruct ion: take 1 capsule by mouth twice a day before meals Me dication GenericN tana: dronabin ol Not Available Not Available Not Available gabapenti n 100 mg capsule 2015 active Medicati on ID: 915536 D uration Value: 30 Brand Name: gabapent in Send Method: E-Prescr ibed Sub s Allowed: subs OK Speci al Instruct ion: take 2 capsules by mouth three times a day Medi cationGe nericNam e: gabapent in Not Available Not Available Not Available ergocalci ferol (vitamin D2) 1,250 mcg (50,000 unit) capsule TAKE 1 CAPSULE BY MOUTH 1 TIME EVERY WEEK active Not Available Not Available No t Available polyethyl jennifer glycol 3350 17 gram/dose oral powder 2014 active Medicati on ID: 200524 D uration Value: 30 Brand Name: polyethy abby glycol 3350 Sen d Method: E-Prescr ibed Sub s Allowed: subs OK Speci al Instruct ion: take 17GM (DISSOLV ED IN WATER) by mouth once daily Me dication GenericN tana: polyethy abby glycol 3350 Not Available Not Available Not Available methylpre dnisolone 4 mg tablets in a dose pack 2015 active Medicati on ID: 548759 D uration Value: 6 Brand Name: methylpr ednisolo ne Send Method: E-Prescr ibed Sub s Allowed: subs OK Speci al Instruct ion: TAKE 6 TABLETS ON DAY 1 DIRECTED ON PACKAGE AND DECREASE BY 1 TAB E ACH DAY FOR A TOTAL OF 6 DAYS Med icationG enericNa me: methylpr ednisolo ne Not Available Not Available Not Available ketoconaz ole 2 % topical cream 2014 active Medicati on ID: 557100 D uration Value: 14 Brand Name: ketocona zole Sen d Method: E-Prescr ibed Sub s Allowed: subs OK Speci al Instruct ion: apply topicall y to affected area twice a day Medi cationGe nericNam e: ketocona zole Not Available Not Available Not Available ondansetr on 4 mg disintegr ating tablet DISSOLVE 1 TABLET ON THE TONGUE EVERY 8 HOURS FOR UP TO 7 DAYS NEEDED FOR NAUSEA active Not Available Not Available No t Available diazepam 5 mg tablet 2015 active Medicati on ID: 005641 D uration Value: 28 Brand Name: diazepam Send Method: E-Prescr ibed Sub s Allowed: subs OK Speci al Instruct ion: take 1 tablet by mouth every 12 hours if needed for anxiety Medicati onGeneri cName: diazepam Not Available Not Available Not Available amoxicill in 875 mg-potass ium clavulana te 125 mg tablet TAKE 1 TABLET BY MOUTH TWICE DAILY active Not Available Not Available No t Available testoster one 1 % (50 mg/5 gram) transderm al gel packet USE 1 PACKET TRANSDER SOUMYA EVERY DAY active Not Available Not Available No t Available hydroxyzi ne pamoate 25 mg capsule 2015 active Medicati on ID: 962875 D uration Value: 15 Brand Name: hydroxyz ine pamoate Send Method: E-Prescr ibed Sub s Allowed: subs OK Speci al Instruct ion: take 1 capsule by mouth three times a day if needed for anxiety Medicati onGeneri cName: hydroxyz ine pamoate Not Available Not Available Not Available cyclobenz aprine 5 mg tablet TAKE 1 TABLET BY MOUTH AT BEDTIME FOR UP TO 14 DAYS NEEDED FOR MUSCLE SPASMS active Not Available Not Available No t Available Januvia 100 mg tablet 2015 active Medicati on ID: 455712 D uration Value: 30 Brand Name: Januvia Send Method: E-Prescr ibed Sub s Allowed: subs OK Speci al Instruct ion: take 1 tablet by mouth once daily Me dication GenericN tana: Januvia Not Available Not Available Not Available Lantus Solostar U-100 Insulin 100 unit/mL (3 mL) subcutane ous pen active Not Available Not Available Not Available Humalog KwikPen (U-100) Insulin 100 unit/mL subcutane ous active Not Available Not Available Not Available oxycodone 10 mg tablet TAKE 1 TABLET BY MOUTH FOUR TIMES DAILY NEEDED active Not Available Not Available No t Available Calmosept ine 0.44 %-20.6 % topical ointment 2015 active Medicati on ID: [id number] D uration Value: 30 Brand Name: Jacqueline johnson Sen d Method: E-Prescr ibed Sub s Allowed: subs OK Medic ationGen ericName : Jacqueline johnson Not Available Not Available Not Available Stimulant Laxative Plus 8.6 mg-50 mg tablet TAKE 2 TABLETS BY MOUTH EVERY NIGHT AT BEDTIME active Not Available Not Available No t Available Jardiance 10 mg tablet TAKE 1 TABLET BY MOUTH EVERY MORNING active Not Available Not Available No t Available OxyContin 20 mg tablet,cr ush resistant ,extended release TAKE 1 TABLET BY MOUTH TWICE DAILY AND 2 TABLETS AT BEDTIME active Not Available Not Available No t Available BD Yana 2nd Gen Pen Needle 32 gauge x 5/32 USE TO ADMINIST ER INSULIN FOUR TIMES DAILY active Not Available Not Available No t Available OneTouch Ultra2 Meter USE DIRECTED THREE TIMES DAILY active Not Available Not Available No t Available OneTouch Delica Plus Lancet 33 gauge USE DIRECTED TO TEST BLOOD GLUCOSE THREE TIMES DAILY active Not Available Not Available No t Available FreeStyle Jesusita 2 Sensor kit USE DIRECTED EVERY 14 DAYS active Not Available Not Available No t Available Vitals Date Recorded Body height Body mass index (BMI) Body weight Provider Name and Address Organization Details Last Updated DateTime 01/07/2024 180.34 cm 25.4 kg/m2 20782.81 g Adam Owusu [place] - [facility] 01/07/2024 13:57:32 Social History None recorded. Functional Status None recorded. Mental Status None recorded. Family History Nothing Reported. Medical History No medical history recorded. Past Encounters Encounter ID Performer Location Encounter Start Date Encounter Closed Date Diagnosis/Indication Diagnosis SNOMED-CT Code Diagnosis ICD10 Code [id number] HEVER BROWER MD [facility] [address] [phone] 01/07/2024 13:48:57 01/07/2024 14:24:57 Gastroesophageal reflux disease without esophagitis 165766879 K21.9 Dysphagia 47814710 R13.1 0 Health Concerns Section Related Observation LastModified by Organization Detai ls LastModified Time None Recorded Concern Status LastModified by Organization Details LastModified Time None Recorded Advance Directives Directive None Recorded Payers Encounter Date Sequence Insurance Name Policy Number Policy Wilhelm Covered Member ID Wilhelm Member ID Guarantor Name 01/07/2024 1 [employer] - MEDICARE ADVANTAGE PLAN (MEDICARE REPLACEMENT HMO) [id number] Dimitri Snow [id number] Dimitri Snow Notes Date Note Type Note Provider Name and Address Organization Details Recorded Time 01/07/2024 text/html He has had a pulling sensation in the front of his throat for 10 months. 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 He is able to eat and drink but he feels a tightness in his throat when he swallows. He has occasional hoarseness. He quit smoking over 4 years ago. No trouble breathing. He has heartburn. Takes pantoprazole 40mg daily. HEVER BROWER MD [address] [place] [address], [phone], [place] - [facility] 01/07/2024 14:38:53
--- OUTSIDE RECORDS SUMMARY | 2024-03-04 11:14 | XMS_ITS | Continuity of Care Document ---
Author Organization [place] - [facility], [facility] Address [address] [place] [address] Care Team Providers Care Manager Contracting Name Role Phone DEMARCUS REMY Primary Care Provider [phone] BIRDIE BEAVER Referring Provider Assessment No assessment [...] Abnormal Flag Note LastModifiedBy Organization Detail LastModifiedTime 01/11/20 24 11/04/2019 US, thyro id No observ ation record ed. [facility] ([facility]) [address] [place] [address], [id number], 01/14/2024 08:50:42 01/14/2010/04/2023 US, neck, soft tissu e No observ ation record ed. [email or web address] Not Available 12/18 09:42:47 01/14/2007/20/2022 US, neck, soft tissu e No observ ation record ed. [email or web address] Not Available 12/18 09:42:47 01/14/20 24 11/04/2019 CT, neck, soft tissu e, w/ contr ast No observ ation record ed. [email or web address] Not Available 12/18 09:42:47 01/16/2010/04/2023 US, neck, soft tissu e No observ ation record ed. [facility] ([facility]) [address] [place], [address], 01/17/2024 12:46:44 Result Notes None recorded. Problems Name Problem SNOMED Code Status Onset Date Resolution Date Notes Provider Name and Address Organization Details Recorded Time Stomatitis 08139461 Active 2015 Oral thrush ; Note: Date Diagno sed: 016 4:50 PM (B37.0 ) Not Available [facility] 4 02:57:04 Candidiasis of mouth 11712045 Active 2015 Oral thrush ; Note: Date Diagno sed: 016 4:50 PM (B37.0 ) Not Available [facility] 4 02:57:04 Dysphagia 63220899 Active 2015 Dyspha shelby, unspec ified; Note: Date Diagno sed: 016 4:50 PM (R13.1 0) Not Available [facility] 4 02:57:05 Gastroesophag eal reflux disease without esophagitis 600172500 Active 2023 HEVER BROWER MD [address] [place] [address], [phone] , [facility] 4 14:09:22 Problem Notes None recorded. Procedures Surgical History Date Name Laterality Status Provider Name and Address Organization Details Recorded Time 01/07/2024 FFL_RE completed HEVER BROWER MD [address] [place] [address], [phone], [facility] 01/07/2024 14:09:36 Imaging Results None recorded. Procedure Notes None recorded. Medical Equipment None Reported. Allergies Allergen ID Allergen Name Allergen Category Reaction Reaction Severity Criticality Documentation Date Start Date Code Code System Note Provider Name and Address Organization Details Recorded Time 383585 codeine sulfate medicatio n other Not available Not available 07/31/2023 43336 RxNorm React ion: unkno wn, unspe amanda d;; Not Available [facility] 4 01:23:09 858410 morphine medicatio n other Not available Not available 07/31/2023 7052 RxNorm React ion: unkno wn, unspe cifie d;; Not Available [facility] 4 01:23:10 Medications Name Sig Start Date Stop Date Status Note LastModified by Organization Details LastModified Time sure comfort pen needles 32gx5/32 32g x 4 mm misc active Not Available Not Available Not Available losartan 50 mg tablet 2015 active Medicati on ID: [id number] D uration Value: 30 Brand Name: losartan Send Method: E-Prescr ibed Sub s Allowed: subs OK Speci al Instruct ion: take 1 tablet by mouth once daily Me dication GenericN tana: losartan Not Available Not Available Not Available metformin 500 mg tablet 2015 active Medicati on ID: 253359 D uration Value: 30 Brand Name: metformi [...] a day 2015 active Medicati on ID: 610958 D uration Value: 10 Prescri bed By [...] 24 hr 2015 active Medicati on ID: [id number] D uration Value: 30 Brand Name: venlafax ine Send Method: E-Prescr ibed Sub s Allowed: subs OK Speci al Instruct ion: take 1 capsule by mouth once daily with 37.5MG FOR A TOTAL DAILY DOSE OF 112MG Me dication GenericN tana: venlafax ine Not Available Not Available Not Available atorvasta tin 20 mg tablet 2015 active Medicati on ID: 764357 D uration Value: 30 Brand Name: atorvast atin Sen d Method: E-Prescr ibed Sub s Allowed: subs OK Speci al Instruct ion: take 1 tablet by mouth once daily Me dication GenericN tana: atorvast atin Not Available Not Available Not Available benztropi ne 0.5 mg tablet 2015 active Medicati on ID: 221154 D uration Value: 30 Brand Name: benztrop [...] mg tablet 2015 active Medicati on ID: 932939 D uration Value: 30 Brand Name: trazodon e Send Method: E-Prescr ibed Sub s Allowed: subs OK Speci al Instruct ion: take 1 tablet by mouth once daily at bedtime Medicati onGeneri cName: trazodon e Not Available Not Available Not Available polyethyl jennifer glycol 3350 17 gram oral powder packet 2014 active Medicati on ID: 395147 D uration Value: 30 Brand Name: polyethy [...] 28 gauge 2015 active Medicati on ID: 381398 D uration Value: 25 Brand Name: FreeStyl [...] 24 hr 2015 active Medicati on ID: 491012 D uration Value: 15 Brand Name: venlafax ine Send Method: E-Prescr ibed Sub s Allowed: subs OK Speci al Instruct ion: take 1 capsule by mouth once daily Me dication GenericN tana: venlafax ine Not Available Not Available Not Available olanzapin e 10 mg tablet 2015 active Medicati on ID: 675005 D uration Value: 30 Brand Name: olanzapi [...] mg tablet 2014 active Medicati on ID: 657259 D uration Value: 14 Brand Name: ciproflo xacin HCl Send Method: E-Prescr ibed Sub s Allowed: subs OK Speci al Instruct ion: take 1 tablet by mouth twice a day Medi cationGe nericNam e: ciproflo xacin HCl Not Available Not Available Not Available sulfameth oxazole 800 mg-trimet hoprim 160 mg tablet 2015 active Medicati on ID: 258526 D uration Value: 28 Brand Name: sulfamet hoxazole -trimeth oprim Se nd Method: E-Prescr ibed Sub s Allowed: subs OK Maria Fernandai al Instruct ion: take 1 tablet by mouth twice a day Medi cationGe nericNam e: sulfamet hoxazole -trimeth oprim Not Available Not Available Not Available omeprazol e 40 mg capsule,d elayed release TAKE 1 CAPSULE BY MOUTH DAILY active Not Available Not Available No t Available lamotrigi ne 25 mg tablet 2015 active Medicati on ID: 891310 D uration Value: 30 Brand Name: lamotrig ramin Send Method: E-Prescr ibed Sub s Allowed: subs EPHRAIM weems Instruct ion: take 1 tablet by mouth [...] mg tablet 2015 active Medicati on ID: 405948 D uration Value: 15 Brand Name: risperid one Send Method: E-Prescr ibed Sub s Allowed: subs EPHRAIM weems Instruct ion: take 1 tablet by mouth [...] Not Available Not Available No t Available [facility] Medicine InstituteTouch Ultra Test strips USE DIRECTED TO CHECK [...] mcg tablet 2015 active Medicati on ID: 902027 D uration Value: 30 Brand Name: levothyr oxine Se nd Method: E-Prescr ibed Sub s Allowed: subs EPHRAIM weems Instruct ion: take 1 tablet by mouth once daily and 1/2 tablet ON SUNDAYS Medicati onGeneri cName: levothyr oxine Not Available Not Available Not Available nystatin 100,000 unit/gram topical cream 12/13 completed Medicati on ID: 416907 D uration Value: 7 Brand Name: nystatin Send Method: E-Prescr ibed Sub s Allowed: subs OK Medic ationGen ericName : nystatin Not Available Not Available Not Available lidocaine 5 % topical patch 2015 active Medicati on ID: 305937 D uration Value: 30 Brand Name: lidocain [...] mg capsule 2015 active Medicati on ID: 436733 D uration Value: 28 Brand Name: dronabin ol Send Method: E-Prescr ibed Sub s Allowed: subs OK Speci al Instruct ion: take 1 capsule by mouth twice a day before meals Me dication GenericN tana: dronabin ol Not Available Not Available Not Available gabapenti n 100 mg capsule 2015 active Medicati on ID: 763506 D uration Value: 30 Brand Name: gabapent [...] oral powder 2014 active Medicati on ID: 418297 D uration Value: 30 Brand Name: polyethy abby glycol 3350 Sen d Method: E-Prescr ibed Sub s Allowed: subs OK Speci al Instruct ion: take 17GM (DISSOLV ED IN WATER) by mouth once daily Me dication GenericN tana: polyethy abby glycol 3350 Not Available Not Available Not Available methylpre dnisolone 4 mg tablets in a dose pack 2015 active Medicati on ID: 787510 D uration Value: 6 Brand Name: methylpr [...] topical cream 2014 active Medicati on ID: 118287 D uration Value: 14 Brand Name: ketocona [...] mg tablet 2015 active Medicati on ID: 640012 D uration Value: 28 Brand Name: diazepam [...] mg capsule 2015 active Medicati on ID: 199290 D uration Value: 15 Brand Name: hydroxyz [...] mg tablet 2015 active Medicati on ID: 836815 D uration Value: 30 Brand Name: Mel Send Method: E-Prescr ibed Sub s Allowed: [...] topical ointment 2015 active Medicati on ID: 258742 D uration Value: 30 Brand Name: Calmosep elizabeth Sen d Method: E-Prescr ibed Sub s Allowed: subs OK Medic ationGen ericName : Calmosep elizabeth Not Available Not Available Not Available Stimulant [...] 2nd Gen Pen Needle 32 gauge x USE TO ADMINIST ER INSULIN FOUR TIMES [...] Updated DateTime 01/07/2024 180.34 cm 25.4 kg/m2 83690.81 g Adam Owusu [place] - [facility] 01/07/2024 13:57:32 Social History None recorded. Functional Status None recorded. Mental Status None recorded. Family History Nothing Reported. Medical History No medical history recorded. Past Encounters Encounter ID Performer Location Encounter Start Date Encounter Closed Date Diagnosis/Indication Diagnosis SNOMED-CT Code Diagnosis ICD10 Code [id number] HEVER BROWER MD [facility] [address] [address] 01/07/2024 13:48:57 01/07/2024 14:24:57 Gastroesophageal reflux disease without esophagitis 904976002 K21.9 Dysphagia 22546569 R13.1 0 Health Concerns Section Related Observation LastModified by Organization Detai ls LastModified Time None Recorded Concern Status LastModified by Organization Details LastModified Time None Recorded Payers Encounter Date Sequence Insurance Name Policy Number Policy Wilhelm Covered Member ID Wilhelm Member ID Guarantor Name 01/07/2024 1 [employer] - MEDICARE ADVANTAGE PLAN (MEDICARE REPLACEMENT HMO) [id number] Dimitri Snow [id number] Dimitri Snow Notes Date Note Type Note [...] Takes pantoprazole 40mg daily. HEVER BROWER MD [address] [place] [address], [phone], [place] - [facility] 01/07/2024 14:38:53
[2024-03-27 11:40] VITALS: BMI 23.4
--- NOTE | 2024-03-27 13:53 | P.CONAN_ITS ---
Documented by User: Merary Beltran NP 03/27/24 13:56 HPI - Anesthesia Eval Consult details Narrative: 74yo M for TUR Prostate with plasma button Follows [facility]. Last office visit 10/2023. Stable. Notes Carotid stenosis 50% on right and very little on left. Some PVD PMFSH Active Problems Active Problems: All Active Problems Bladder outlet obstruction (Acute) Pelvic pain in male (Acute) Prostatitis (Acute) Hypogonadism in male (Acute) Past Medical History Medical History (Updated 03/27/24 @ 11:57 by Karina Mantilla RN) Carotid stenosis Facet syndrome PVD (peripheral vascular disease) Thyroid cancer Peripheral neuropathy Anxiety Depression COPD (chronic obstructive pulmonary disease) Closed compression fracture of thoracolumbar vertebra Chronic renal insufficiency GERD (gastroesophageal reflux disease) Elevated cholesterol Hypothyroid Diabetes mellitus, type II HTN (hypertension) Erectile dysfunction due to arterial insufficiency Hypogonadism in male Infective urethritis Urethral stricture Prostatitis Surgical History Surgical History (Updated 03/27/24 @ 11:57 by Karina Mantilla RN) History of esophagogastroduodenoscopy (EGD) Hx of hand surgery H/O colonoscopy Hx of bilateral cataract extraction History of back surgery Hx of cystoscopy History of carpal tunnel release History of back surgery History of prostate surgery Hx of hernia repair Social History Social History Are you a primary technical healthcare consultant to a significant other at home: No Do you presently have visiting nurse or other home services: No Patient Tobacco Use Status: Former Tobacco user Tobacco use type: Cigarette Years Smoked: 50 Use of substances other than those prescribed or required for medical reasons: No Have you been hit, kicked, punched, or otherwise hurt by someone within the past year? If so, by whom?: No Spiritual Healthcare Practices: none Anabaptism Healthcare Practices: [employer] Cultural Healthcare Practices: none Are you DNR?: No Advance Directives Information Provided: Yes (as above noted) Advance Directives on File: No Recently lost weight without trying: No Eating poorly because of decreased appetite: No Nutrition Risks: Surgical patient >75years Poor oral hygiene: No (edentulous) Meds Allergies Allergy/AdvReac Type Severity Reaction Status Date / Time acetaminophen [ACETAMINOPHEN] Allergy Unknown patient Verified 03/31/24 13:58 does not know reaction ciprofloxacin [From CIPRO] Allergy Unknown patient Verified 03/31/24 13:58 does not know reaction codeine [CODEINE] Allergy Unknown patient Verified 03/31/24 13:58 does not know reaction erythromycin base Allergy Unknown patient Verified 03/31/24 13:58 [ERYTHROMYCIN BASE] does not know reaction morphine [MORPHINE] Allergy Unknown patient Verified 03/31/24 13:58 does not know reaction Home Medications ?Medication ?Instructions ?Recorded ?Confirmed ?Last Taken ?Type atorvastatin 80 mg tablet 80 mg PO DAILY 12/24/19 03/27/24 Unknown History blood sugar diagnostic #10 ea 12/24/19 11/30/22 Unknown History docusate sodium 100 mg capsule 100 mg PO BID 12/24/19 03/27/24 Unknown History insulin glargine 100 unit/mL (3 30 unit subcut QAM 12/24/19 03/27/24 Unknown History mL) subcutaneous pen lancets 28 gauge #100 ea 12/24/19 11/30/22 Unknown History oxycodone 10 mg tablet 10 mg PO QID PRN pain 12/24/19 03/27/24 Unknown History oxycodone 20 mg tablet,crush 20 mg PO TID 12/24/19 03/27/24 Unknown History resistant,extended release 12 hr pantoprazole 20 mg tablet,delayed 20 mg PO DAILY 12/24/19 03/27/24 Unknown History release pen needle, diabetic 32 gauge x #50 ea 12/24/19 11/30/22 Unknown History insulin lispro 100 unit/mL 3 - 25 sliding scale dose subcut 11/11/21 03/27/24 Unknown History subcutaneous pen (Humalog KwikPen TID (U-100) Insulin) amlodipine 10 mg tablet 10 mg PO DAILY 05/17/22 03/27/24 Unknown History aspirin 81 mg tablet,delayed 81 mg PO DAILY 05/17/22 03/27/24 Unknown History release levothyroxine 150 mcg tablet 150 mcg PO DAILY 05/17/22 03/27/24 Unknown History carvedilol 6.25 mg tablet 6.25 mg PO BID 10/13/22 03/27/24 Unknown History levothyroxine 300 mcg tablet 300 mcg PO Q7D 03/27/24 03/27/24 Unknown History Exam Height,Weight and Vital Signs: Height 5 ft 11.5 in Weight 77.111 kg Assessment and Plan Assessment Anesthesia Assessment: Chart Reviewed Documented by User: Adan John MD 03/31/24 13:59 PMF Past Medical History Medical History (Updated 03/27/24 @ 11:57 by Karina Mantilla, RN) Carotid stenosis Facet syndrome PVD (peripheral vascular disease) Thyroid cancer Peripheral neuropathy Anxiety Depression COPD (chronic obstructive pulmonary disease) Closed compression fracture of thoracolumbar vertebra Chronic renal insufficiency GERD (gastroesophageal reflux disease) Elevated cholesterol Hypothyroid Diabetes mellitus, type II HTN (hypertension) Erectile dysfunction due to arterial insufficiency Hypogonadism in male Infective urethritis Urethral stricture Prostatitis Family History Family history of problems with anesthesia: No Surgical History Surgical History (Updated 03/27/24 @ 11:57 by Karina Mantilla RN) History of esophagogastroduodenoscopy (EGD) Hx of hand surgery H/O colonoscopy Hx of bilateral cataract extraction History of back surgery Hx of cystoscopy History of carpal tunnel release History of back surgery History of prostate surgery Hx of hernia repair History of Problems with Anesthesia: No Social History Social History Are you a primary technical healthcare consultant to a significant other at home: No Do you presently have visiting nurse or other home services: No Patient Tobacco Use Status: Former Tobacco user Tobacco use type: Cigarette Years Smoked: 50 Use of substances other than those prescribed or required for medical reasons: No Have you been hit, kicked, punched, or otherwise hurt by someone within the past year? If so, by whom?: No Spiritual Healthcare Practices: none [employer]ab[employer]ism Healthcare Practices: [employer] Cultural Healthcare Practices: none Are you DNR?: No Advance Directives Information Provided: Yes (as above noted) Advance Directives on File: No Recently lost weight without trying: No Eating poorly because of decreased appetite: No Nutrition Risks: Surgical patient >75years Poor oral hygiene: No (edentulous) Meds Allergies Allergy/AdvReac Type Severity Reaction Status Date / Time acetaminophen [ACETAMINOPHEN] Allergy Unknown patient Verified 03/31/24 13:58 does not know reaction ciprofloxacin [From CIPRO] Allergy Unknown patient Verified 03/31/24 13:58 does not know reaction codeine [CODEINE] Allergy Unknown patient Verified 03/31/24 13:58 does not know reaction erythromycin base Allergy Unknown patient Verified 03/31/24 13:58 [ERYTHROMYCIN BASE] does not know reaction morphine [MORPHINE] Allergy Unknown patient Verified 03/31/24 13:58 does not know reaction Home Medications ?Medication ?Instructions ?Recorded ?Confirmed ?Last Taken ?Type atorvastatin 80 mg tablet 80 mg PO DAILY 12/24/19 03/27/24 Unknown History blood sugar diagnostic #10 ea 12/24/19 11/30/22 Unknown History docusate sodium 100 mg capsule 100 mg PO BID 12/24/19 03/27/24 Unknown History insulin glargine 100 unit/mL (3 30 unit subcut QAM 12/24/19 03/27/24 Unknown History mL) subcutaneous pen lancets 28 gauge #100 ea 12/24/19 11/30/22 Unknown History oxycodone 10 mg tablet 10 mg PO QID PRN pain 12/24/19 03/27/24 Unknown History oxycodone 20 mg tablet,crush 20 mg PO TID 12/24/19 03/27/24 Unknown History resistant,extended release 12 hr pantoprazole 20 mg tablet,delayed 20 mg PO DAILY 12/24/19 03/27/24 Unknown History release pen needle, diabetic 32 gauge x #50 ea 12/24/19 11/30/22 Unknown History insulin lispro 100 unit/mL 3 - 25 sliding scale dose subcut 11/11/21 03/27/24 Unknown History subcutaneous pen (Humalog KwikPen TID (U-100) Insulin) amlodipine 10 mg tablet 10 mg PO DAILY 05/17/22 03/27/24 Unknown History aspirin 81 mg tablet,delayed 81 mg PO DAILY 05/17/22 03/27/24 Unknown History release levothyroxine 150 mcg tablet 150 mcg PO DAILY 05/17/22 03/27/24 Unknown History carvedilol 6.25 mg tablet 6.25 mg PO BID 10/13/22 03/27/24 Unknown History levothyroxine 300 mcg tablet 300 mcg PO Q7D 03/27/24 03/27/24 Unknown History Exam Narrative Narrative: j Airway Mallampati Class: II TM Dist: >3cm Neck ROM: Full Denture: Upper and Lower Heart: ok Lungs: ok. sat 94-96% on ra. Assessment and Plan Assessment Anesthesia Assessment: Anesthesia Plan Discussed Final Anesthetic Review Family History of Problems with Anesthesia: No History of Problems with Anesthesia: No NPO: Yes ASA Class: III Final Preanesthetic Review: No Changes in Pt Med Stat, Meds/Allgs Chart Reviewed, Consent Obtained/Reviewed and Anes Risks/Benef Reviewed Patient Risk: Intermediate Procedure Risk: Low Anesthetic Plan Anesthetic Plan: GA and Agree w/ Assess. and Plan Disposition: Standard PACU
[2024-03-31] VITALS (10 sets, daily range): BP systolic 124–190; BP diastolic 60–90; PULSE 66–75; RESP 18–20; TEMP 36.2–36.6; O2SAT 96–97
[2024-03-31] MEDS: Lactated Ringers 1,000 ML 100 ML IVCONT (13:08)
[2024-03-31 13:13] LABS: Glucose, Whole Blood 149 mg/dL (60-115)
--- NOTE | 2024-03-31 13:19 | MHC.SHP ---
Pre-Procedural Eval Section A - 24 Hr Update-Section A only Date of Service: 03/31/24 The patient is an INPATIENT: No Changes since office visit: No Cold of Flu in the past 2 weeks, No New Medical Problems, No Changes in Medication and No Patient answered all questions The patient has been examined within 24 hours of the surgical procedure. The History & Physical has been completed within 30 days and I have reviewed it.: Yes Section B - Complete if H&P > 30 days Chief Complaint: Bladder-neck obstruction Details of Present Illness: Bipolar TURP Relevant Family History (Specify if Yes): No Relevant Social History: None Present Medications: see Short Stay Collaborative assessment Medical History: No relevant PMH History of Previous Operations: Relevant previous surgery/procedure and date(s) Allergies: Allergies Allergy/AdvReac Type Severity Reaction Status Date / Time acetaminophen [ACETAMINOPHEN] Allergy Unknown patient Verified 03/27/24 11:39 does not know reaction ciprofloxacin [From CIPRO] Allergy Unknown patient Verified 03/27/24 11:39 does not know reaction codeine [CODEINE] Allergy Unknown patient Verified 03/27/24 11:39 does not know reaction erythromycin base Allergy Unknown patient Verified 03/27/24 11:39 [ERYTHROMYCIN BASE] does not know reaction morphine [MORPHINE] Allergy Unknown patient Verified 03/27/24 11:39 does not know reaction Review of Systems Sugical H&P ROS: Negative: Constitution, Cardiovascular, Respiratory, Neurological, Psychiatric, Hem-Onc, Allergic/Immunologic, Gastrointestinal, Genitourinary, Musculoskeletal, Integumentary, Endocrine and Eyes/Ears/Nose/Throat Exam Surgical H&P Exam: Normal: HEENT, Normal: Heart, Normal: Lungs, Normal: Extremities, Normal: Abdomen, Normal: Skin and Normal: Neurological Plan Diagnosis/Plan: Unchanged (Plasma button TURP) I have reviewed the history and physical and performed a pertinent physical examination on my patient. No changes have occurred unless specified. Time Spent With Patient Time: Total time managing care of this patient today ____ minutes.
--- OUTSIDE RECORDS SUMMARY | 2024-03-31 14:02 | XMS_ITS | Continuity of Care Document ---
Author Organization [place] - [facility], [facility] Address [address] [place] [address] Care Team Providers Care Workers Compensation Claims Examiner Name Role Phone DEMARCUS REMY Primary Care [...] id No observ ation record ed. [facility] ([facility]) [address] [place] [address], [id number], 01/14/2024 08:50:42 01/14/2010/04/2023 US, neck, soft tissu [...] tissu e No observ ation record ed. [facility] ([facility]) [address] [place], [address], 01/17/2024 12:46:44 Result Notes None recorded. Problems Name Problem SNOMED Code Status Onset Date Resolution Date Notes Provider Name and Address Organization Details Recorded Time Stomatitis 32017952 Active 2015 Oral thrush ; Note: Date Diagno sed: 016 4:50 PM (B37.0 ) Not Available [facility] 4 02:57:04 Candidiasis of mouth 23493211 Active 2015 Oral thrush ; Note: Date Diagno sed: 016 4:50 PM (B37.0 ) Not Available [facility] 4 02:57:04 Dysphagia 96129905 Active 2015 Dyspha shelby, unspec ified; Note: Date Diagno sed: 016 4:50 PM (R13.1 0) Not Available [facility] 4 02:57:05 Gastroesophag eal reflux disease without esophagitis 038068521 Active 2023 HEVER BROWER MD [address] [place] [address], [phone] , [facility] 4 14:09:22 Problem Notes None recorded. Procedures Surgical History Date Name Laterality Status Provider Name and Address Organization Details Recorded Time 01/07/2024 FFL_RE completed HEVER BROWER MD [address] [place] [address], [phone], [facility] 01/07/2024 14:09:36 Imaging Results None recorded. Procedure Notes None recorded. Medical Equipment None Reported. Allergies Allergen ID Allergen Name Allergen Category Reaction Reaction Severity Criticality Documentation Date Start Date Code Code System Note Provider Name and Address Organization Details Recorded Time 606184 codeine sulfate medicatio n other Not available Not available 07/31/2023 34017 RxNorm React ion: unkno wn, unspe amanda d;; Not Available [facility] 4 01:23:09 030813 morphine medicatio n other Not available Not available 07/31/2023 7052 RxNorm React ion: unkno wn, unspe cifie d;; Not Available [facility] 4 01:23:10 Medications Name Sig Start Date Stop Date Status Note LastModified by Organization Details LastModified Time sure comfort pen needles 32gx5/32 32g x 4 mm misc active Not Available Not Available Not Available losartan 50 mg tablet 2015 active Medicati on ID: [id number] D uration Value: 30 Brand Name: losartan Send Method: E-Prescr ibed Sub s Allowed: subs OK Speci al Instruct ion: take 1 tablet by mouth once daily Me dication GenericN tana: losartan Not Available Not Available Not Available metformin 500 mg tablet 2015 active Medicati on ID: [id number] D uration Value: 30 Brand Name: metformi [...] a day 2015 active Medicati on ID: [id number] D uration Value: 10 Prescri bed By [...] 24 hr 2015 active Medicati on ID: [id number] D uration Value: 30 Brand Name: venlafax ine Send Method: E-Prescr ibed Sub s Allowed: subs OK Speci al Instruct ion: take 1 capsule by mouth once daily with 37.5MG FOR A TOTAL DAILY DOSE OF 112MG Me dication GenericN tana: venlafax ine Not Available Not Available Not Available atorvasta tin 20 mg tablet 2015 active Medicati on ID: [id number] D uration Value: 30 Brand Name: atorvast atin Sen d Method: E-Prescr ibed Sub s Allowed: subs OK Speci al Instruct ion: take 1 tablet by mouth once daily Me dication GenericN tana: atorvast atin Not Available Not Available Not Available benztropi ne 0.5 mg tablet 2015 active Medicati on ID: [id number] D uration Value: 30 Brand Name: benztrop [...] mg tablet 2015 active Medicati on ID: 301447 D uration Value: 30 Brand Name: trazodon e Send Method: E-Prescr ibed Sub s Allowed: subs OK Speci al Instruct ion: take 1 tablet by mouth once daily at bedtime Medicati onGeneri cName: trazodon e Not Available Not Available Not Available polyethyl jennifer glycol 3350 17 gram oral powder packet 2014 active Medicati on ID: [id number] D uration Value: 30 Brand Name: polyethy [...] 28 gauge 2015 active Medicati on ID: [id number] D uration Value: 25 Brand Name: FreeStyl [...] 24 hr 2015 active Medicati on ID: [id number] D uration Value: 15 Brand Name: venlafax ine Send Method: E-Prescr ibed Sub s Allowed: subs OK Speci al Instruct ion: take 1 capsule by mouth once daily Me dication GenericN tana: venlafax ine Not Available Not Available Not Available olanzapin e 10 mg tablet 2015 active Medicati on ID: 608714 D uration Value: 30 Brand Name: olanzapi [...] mg tablet 2014 active Medicati on ID: [id number] D uration Value: 14 Brand Name: ciproflo xacin HCl Send Method: E-Prescr ibed Sub s Allowed: subs OK Speci al Instruct ion: take 1 tablet by mouth twice a day Medi cationGe nericNam e: ciproflo xacin HCl Not Available Not Available Not Available sulfameth oxazole 800 mg-trimet hoprim 160 mg tablet 2015 active Medicati on ID: 214724 D uration Value: 28 Brand Name: sulfamet [...] mg tablet 2015 active Medicati on ID: 437461 D uration Value: 30 Brand Name: lamotrig [...] mg tablet 2015 active Medicati on ID: 880332 D uration Value: 15 Brand Name: risperid [...] Not Available Not Available No t Available [employer] ASATouch Ultra Test strips USE DIRECTED TO CHECK [...] mcg tablet 2015 active Medicati on ID: 216493 D uration Value: 30 Brand Name: levothyr oxine Se nd Method: E-Prescr ibed Sub s Allowed: subs EPHRAIM weems Instruct ion: take 1 tablet by mouth once daily and 1/2 tablet ON SUNDAYS Medicati onGeneri cName: levothyr oxine Not Available Not Available Not Available nystatin 100,000 unit/gram topical cream 12/13 completed Medicati on ID: [id number] D uration Value: 7 Brand Name: nystatin Send Method: E-Prescr ibed Sub s Allowed: subs OK Medic ationGen ericName : nystatin Not Available Not Available Not Available lidocaine 5 % topical patch 2015 active Medicati on ID: 808247 D uration Value: 30 Brand Name: lidocain [...] mg capsule 2015 active Medicati on ID: [id number] D uration Value: 28 Brand Name: dronabin ol Send Method: E-Prescr ibed Sub s Allowed: subs OK Speci al Instruct ion: take 1 capsule by mouth twice a day before meals Me dication GenericN tana: dronabin ol Not Available Not Available Not Available gabapenti n 100 mg capsule 2015 active Medicati on ID: 763311 D uration Value: 30 Brand Name: gabapent [...] oral powder 2014 active Medicati on ID: 733052 D uration Value: 30 Brand Name: polyethy abby glycol 3350 Sen d Method: E-Prescr ibed Sub s Allowed: subs OK Speci al Instruct ion: take 17GM (DISSOLV ED IN WATER) by mouth once daily Me dication GenericN tana: polyethy abby glycol 3350 Not Available Not Available Not Available methylpre dnisolone 4 mg tablets in a dose pack 2015 active Medicati on ID: 594040 D uration Value: 6 Brand Name: methylpr [...] topical cream 2014 active Medicati on ID: 081520 D uration Value: 14 Brand Name: ketocona [...] mg tablet 2015 active Medicati on ID: 428780 D uration Value: 28 Brand Name: diazepam [...] mg capsule 2015 active Medicati on ID: 780108 D uration Value: 15 Brand Name: hydroxyz [...] mg tablet 2015 active Medicati on ID: 459845 D uration Value: 30 Brand Name: Mel [...] topical ointment 2015 active Medicati on ID: 273491 D uration Value: 30 Brand Name: Calmosep [...] Updated DateTime 01/07/2024 180.34 cm 25.4 kg/m2 01731.81 g Adam Owusu [place] - [facility] 01/07/2024 13:57:32 Social History None recorded. Functional Status None recorded. Mental Status None recorded. Family History Nothing Reported. Medical History No medical history recorded. Past Encounters Encounter ID Performer Location Encounter Start Date Encounter Closed Date Diagnosis/Indication Diagnosis SNOMED-CT Code Diagnosis ICD10 Code Diagnosis Note [id number] HEVER BROWER MD [facility] [address] [address] 01/07/2024 13:48:57 01/07/2024 14:24:57 Gastroesophageal reflux disease without esophagitis 665491560 K21.9 continue pantoprazo le. Dysphagia 29290189 R13.1 0 laryngosco py was normal. I gave reassuranc e. May be due to GERD. I recommend he continue to take his PPI and call me if this worsens. I requested his neck imaging to review. He says he had a recent neck image which was normal. I asked him to f/u if his symptoms progress. I did not see any worrisome findings. Health Concerns Section Related Observation LastModified by Organization Detai ls LastModified Time None Recorded Concern Status LastModified by Organization Details LastModified Time None Recorded Payers Encounter Date Sequence Insurance Name Policy Number Policy Wilhelm Covered Member ID Wilhelm Member ID Guarantor Name 01/07/2024 1 [employer] - MEDICARE ADVANTAGE PLAN (MEDICARE REPLACEMENT HMO) [id number] Dimitri Edy [id number] Dimitri Snow Notes Date Note Type Note [...] Takes pantoprazole 40mg daily. HEVER BROWER MD [address] [place] [address] [place], [address], [facility] - [facility] 01/07/2024 14:38:53
[2024-03-31 14:06] LABS: Hemoglobin 11.6 g/dl (14.0-18.0); Mean Corpuscular HGB Conc 34.1 g/dl (31.0-36.0); Mean Corpuscular Hemoglobin 31.4 pg (27.0-33.0); Mean Corpuscular Volume 91.9 fL (80.0-98.0); Mean Platelet Volume 10.2 fL (9.4-12.4); Platelet Count 224 X10*3/uL (160-400); Red Cell Distribution Width 15.5 % (11.0-16.0); White Blood Count 9.4 X10*3/uL (4.8-10.8)
[2024-03-31 14:19] LABS: Anion Gap 10 (12-20); Blood Urea Nitrogen 26 mg/dL (9-16); Calcium 8.7 mg/dL (8.4-10.2); Carbon Dioxide 26 mmol/L (22-29); Chloride 108 mmol/L (96-108); Creatinine Clr Calc Pharmacy 36.9; Estimated Glomerular Filt Rate 36; Glucose Fasting 149 mg/dL (60-99); Potassium 5.3 mmol/L (3.3-5.1); Sodium 139 mmol/L (135-145)
[2024-03-31] MEDS: fentaNYL citrate/PF 100 MCG/2 ML VIAL 50 MCG IVPUSH ×2 (14:55→15:00)
--- NOTE | 2024-04-24 14:29 | W.PM.OPN ---
Operative Note Operative Note Date of Service: 04/24/24 Narrative: PreOperative Diagnosis: Bladder outlet obstruction Post Operative Diagnosis: Bladder outlet obstruction Procedure: CPT 65261 - Transurethral electrosurgical prostate resection Surgeon: Dr Venkata Katz Anesthesia: General History of bladder outlet obstruction. Treated with alpha-ella and other medications. Still with symptoms. On cystoscopy in office has tight bladder neck. Recommendation for prostate procedure with plasma button Transurethral electrosurgical prostate resection. Size of prostate less than 40 cc. Risks and benefits have been discussed. Focus was placed on development of retrograde ejaculation which is a normal part of this procedure. Procedure: After informed consent was verified the patient was brought to the operating room and placed in a supine position. Anesthesia was administered per protocol. Patient was placed in modified dorsal lithotomy position and prepped and draped in a sterile fashion. Safety pause time-out was confirmed. Antibiotics have been given. A Twenty-four Andorran cystoscope with visual obturator was inserted per urethra. No abnormalities were found of the anterior and bulbar urethra. The prostatic urethra shows tight bladder neck. The bladder was examined and both ureteric orifices were seen in their normal positions away from the area of interest. Bladder trabeculation Grade 1. The visual obturator was removed and replaced with a plasma button resection loop. Using the plasma button incisions were made at the 5 and 7 o'clock position. The incisions were taken down starting level with bladder neck down to the area just proximal of the veru. These grooves were gradually deepened in order to define the lateral aspects of the median lobe area. Proximal portion of the groove was extended through the bladder neck and remained in line with the ureteric orifice on each side. Once clearly defined the grooves were extended in the lateral directions in order to create a deep groove. The median lobe was then resected and enucleated tissue released into the bladder. The deep boundary of resection was defined by the prostate surgical capsule. . Attention was directed toward the lateral lobes. Starting with the patient's left lateral lobe. First the 05:00 o'clock groove was further developed. This was moved in the lateral direction to undermine the tissue on the lateral side running from the bladder neck to the prostate apex. The ureteric orifice was used to guide incisions. The plasma button was placed at the 1 o'clock position and a secondary groove was developed down to the level of prostatic capsule. The creation of a second deep groove defined a segment of intervening tissue similar to a slice of orange. At the apex of the prostate the laser was used to vertically link the two grooves releasing the intervening tissue and creating a segment of tissue. This tissue was then removed with a combination of enucleation and ablation working from the apex toward the bladder neck. A similar procedure was repeated on the patient's right-hand side. The only differences being the position of the lateral groove at he 7 o'clock position and the secondary groove at the 11 o'clock position, Otherwise the procedure was developed in a mirror fashion. After the majority of tissue had been debulked remnant tissue was removed with the plasma button and the curve of the prostate followed up each side wall clearly defining the anterior remnant strip that remained between the 11 and 1 o'clock positions. At completion debris and pieces of prostate were removed from the bladder with irrigation. Both ureteric orifices were reviewed again in shown to be patent in away from any areas of energy damage. The apical area was reviewed and any stray mucosal ooze was controlled. A 22 Andorran 30 cc balloon Villa catheter was placed into the bladder using a flexible stylet. Clear efflux was obtained upon irrigation with a Christopher piston syringe. 30 cc was placed in the balloon and gentle traction was placed. A snap was used to hold tension on the catheter to control bleeding during patient moved and transported. A drainage bag was placed. Once transportation is complete to the PACU the snap will be removed. The patient tolerated the procedure well, he was extubated in the operating and transferred in a stable condition to the recovery area. Pathology: Prostate tissue Drains: Villa catheter
== END 2024-03-31 16:00 | disposition home or self-care (01) ==
PROVIDERS: Nurse Practitioner; PCP Internal Medicine; Visit Provider Urology
PROC: 0VT08ZZ Resection of Prostate, Via Natural or Artificial Opening Endoscopic (ICD-10-PCS; CPT 52601; principal; 2024-03-31 14:10)
DX: N32.0 Bladder-neck obstruction (principal); N52.01 Erectile dysfunction due to arterial insufficiency; E29.1 Testicular hypofunction; N41.9 Inflammatory disease of prostate, unspecified; N34.2 Other urethritis; N35.919 Unspecified urethral stricture, male, unspecified site; K62.89 Other specified diseases of anus and rectum; K64.4 Residual hemorrhoidal skin tags; I10 Essential (primary) hypertension; E11.40 Type 2 diabetes mellitus with diabetic neuropathy, unspecified; Z79.4 Long term (current) use of insulin; Z79.899 Other long term (current) drug therapy; Z79.82 Long term (current) use of aspirin; Z88.1 Allergy status to other antibiotic agents; Z88.5 Allergy status to narcotic agent; Z88.8 Allergy status to other drugs, medicaments and biological substances; Z98.890 Other specified postprocedural states; Z87.891 Personal history of nicotine dependence
CPT/HCPCS: 52601; 36415; 80048; 82947; 85027; A4649; J1956; J2003; J2704; J3010

== ENCOUNTER → 2024-03-31 16:00 | Outpatient (BNV) | payer MEDICARE, SELFPAY | PROVIDERS: PCP Internal Medicine; Visit Provider Urology | DX: N32.0 Bladder-neck obstruction (principal) | CPT/HCPCS: 52601 ==

== ENCOUNTER → 2024-04-02 08:26 | Outpatient (BNVA) | payer MEDICARE, SELFPAY | PROVIDERS: PCP Internal Medicine; Visit Provider Urology | DX: N32.0 Bladder-neck obstruction (principal) | CPT/HCPCS: 51700 ==

== ENCOUNTER 2024-04-18 14:21 | Outpatient (AMB) | payer MEDICARE, SELFPAY ==
--- OUTSIDE RECORDS SUMMARY | 2024-04-18 14:23 | XMS_ITS | Encounter Summary ---
Author Organization [facility] Address [address] [address] Phone Care Team Providers Care Portfolio Analyst Name Role Phone Praful Davenport MD Primary Care Provider Encounter Details Date Type Department Care Team (Late st Contact Info) Description 04/07/2024 Orders Only [facility] [address] [place] [phone] ProviderHope MD [address] [place] [address] Social History Tobacco Use Types Packs/Day Years Used Date Smoking Tobacco: Former Cigarettes 0 04/19/1965 - 04/19/2016 Passive Smoke Exposure: Never Smokeless Tobacco: Former Alcohol Use Standard Drinks/Week Comments Not Currently 0 (1 standard drink = 0.6 oz pur e alcohol) Quit 1976 Sex and Gender Information Value Date Recorded Sex Assigned at Not on file Legal Sex Male 5:20 PM EST Gender Identity Not on file Sexual Orientation Not on file documented as of this encounter Plan of Treatment Upcoming Encounters Date Type Department Care Team (Late st Contact Info) Description 08/05/2024 1:15 PM EDT Office Visit [facility] [address] [address] Jimena Rust ARNP [address] [address] documented as of this encounter Procedures Procedure Name Priority Date/Time Associated Diagnosis Comments US INTERPRETATION OF OUTSIDE FILMS Routine 12/11/2023 9:30 AM EDT documented in this encounter Results * Ultrasound interpretation of outside films (12/11/2023 9:30 AM EDT) Anatomical Region Laterality Modality Ultrasound us Historical Provider MD OHARA US PROCEDURES Final R esult documented in this encounter Visit Diagnoses Not on filedocumented in this encounter Care Teams Portfolio Analyst Relationship Specialty Start Date End Date Praful Davenport MD [address] [place] [id number] PCP - General Internal Medicine 02/27/24 documented as of this encounter
--- OUTSIDE RECORDS SUMMARY | 2024-04-18 14:23 | XMS_ITS ---
Care Plan - [facility] Created on: April 18, 2024 Dimitri Snow : 1950 Sex: Male Author Organization [facility] Address [address] [place] [address] Phone Care Team Providers Care Security Control Assessor Name Role Phone Praful Davenport MD Primary Care Provider [phone] [facility] Unavailable [phone]
--- OUTSIDE RECORDS SUMMARY | 2024-04-18 14:23 | XMS_ITS | Encounter Summary ---
Author Organization [facility] Address [address] [address] Phone Care Team Providers Care Mill Stenciler Name Role Phone Praful Davenport MD Primary Care Provider [phone] Reason for Visit * Reason Comments Chronic Kidney Disease Encounter Details Date Type Department Care Team (Latest Contact Info) Description 04/07/2024 4:30 PM EST Office Visit [facility] [address] [address] Mihir Rabago MD [address] [address] Stage 3 chronic kidney disease, not otherwise specified (HCC) (Primary Dx); Hypertension; Secondary hyperparathyroidism of renal origin (HCC); Persistent proteinuria; Heart failure with normal ejection fraction (HCC) Social History Tobacco Use Types Packs/Day Years [...] on file documented as of this encounter Last Filed Vital Signs Vital Sign Reading Time Taken Comments Blood Pressure 134/58 04/07/2024 4:24 PM EST Pulse 60 04/07/2024 4:24 PM EST Temperature - - Respiratory Rate - - Oxygen Saturation - - Inhaled Oxygen Concentration - - Weight 78 kg (172 lb) 04/07/2024 4:24 PM EST Height - - Body Mass Index 23.65 11/15/2023 11:06 AM EDT documented in this encounter Progress Notes * Mihir Rabago MD - 04/07/2024 4:30 PM EST [facility] Patient Name: Dimitri Snow, Male Date of : 1950, 74 y.o. Date: 04/07/2024 Referring MD: Ericka Rankin PA PCP: Praful Davenport MD Reason For Visit: I had the pleasure of seeing your patient for follow up of CKD. The following portions of the patient's chart were reviewed in this encounter and updated as appropriate: Allergies Meds Problems Med Hx Surg Hx Fam Hx Constitutional: Negative for chills, fever, malaise/fatigue and weight loss. HENT: Negative for ear pain, hearing loss and tinnitus. Eyes: Negative for blurred vision, double vision, photophobia and pain. Respiratory: Negative for cough, hemoptysis, sputum production, shortness of breath and wheezing. Cardiovascular: Negative for chest pain, palpitations, orthopnea, claudication and leg swelling. Gastrointestinal: Negative for abdominal pain, diarrhea, nausea and vomiting. Genitourinary: Negative for dysuria, flank pain, frequency, hematuria and urgency. Musculoskeletal: Negative for myalgias. Skin: Negative for itching and rash. Neurological: Negative for dizziness, tingling and headaches. Psychiatric/Behavioral: Negative for depression. Full 13 point review of systems unremarkable except as noted above. Past Medical History: Diagnosis Date Abdominal aortic aneurysm (HCC) Adjustment disorder with anxious mood Anal fissure Anxiety Avascular necrosis of the head of femur Bilateral cataracts mild Carotid artery stenosis Cervicalgia Chronic prostatitis Depressive disorder Diabetes mellitus with renal manifestations, type II or unspecified type, not stated as uncontrolled (HCC) Erectile dysfunction Facet joint pain Gastroesophageal reflux disease Hyperlipidemia Hypertension Hypothyroidism Lumbosacral radiculitis Microalbuminuria Peripheral neuropathy Peripheral vascular disease (HCC) with moderate left SFA occlusion Peripheral vascular disorder due to diabetes mellitus (HCC) Personal history of thyroid cancer Personal history of venous thrombosis Postsurgical hypothyroidism Proctalgia fugax Rectal pain Spinal stenosis, lumbar region 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) Unspecified hearing loss, unspecified ear Past Surgical History: Procedure Laterality Date BACK SURGERY x's 4 COLONOSCOPY 01/20/2004 also in 2013 FLEXIBLE SIGMOIDOSCOPY 05/03/2018 HAND SURGERY Bilateral HERNIA REPAIR NECK SURGERY x's 3 UPPER GASTROINTESTINAL ENDOSCOPY 08/24/2016 05/19/2009 & 05/21/2003 Social History Tobacco Use Smoking status: Former Current packs/day: 0.00 Types: Cigarettes Start date: 04/19/1965 Quit date: 04/19/2016 Years since quittin.9 Passive exposure: Never Smokeless tobacco: Former Substance Use Topics Alcohol use: Not Currently Comment: Quit 1976 Family History Problem Relation Age of Onset Diabetes Mother Cancer Father Current Outpatient Medications Medication Sig Dispense Refill aspirin (ST FARNAZ) 81 MG EC tablet Take 81 mg by mouth 1 (one) time each day atorvastatin (LIPITOR) 80 MG tablet Take 80 mg by mouth 1 (one) time each day calcitriol (Rocaltrol) 0.25 MCG capsule Take 1 capsule (0.25 mcg total) by mouth 1 (one) time each day 30 capsule 5 clopidogrel (PLAVIX) 75 MG tablet Take 75 mg by mouth 1 (one) time each day docusate sodium (COLACE) 100 MG capsule Take 100 mg by mouth in the morning and 100 mg in the evening. furosemide (LASIX) 40 MG tablet Take 40 mg by mouth in the morning and 40 mg in the evening. HumaLOG KWIKPEN 100 UNIT/ML solution pen-injector hydrOXYzine (ATARAX) 25 MG tablet if needed Lantus SoloStar 100 UNIT/ML injection levothyroxine (SYNTHROID, LEVOTHROID) 150 MCG tablet Take 1 tablet by mouth 1 (one) time each day 1.5 tabs on Sun Lidocaine HCl (Lidocaine Viscous HCl) 2 % solution APPLY A SMALL AMOUNT TOPICALLY TO RECTUM FOUR TIMES DAILY NEEDED FOR PAIN Lidocaine, Anorectal, 5 % cream APPLY TOPPICALLY FOUR TIMES DAILY NEEDED FOR ANAL PAIN Multiple Vitamins-Minerals (multivitamin with minerals) tablet Take 1 tablet by mouth 1 (one) time each day oxyCODONE (OxyCONTIN) 20 MG 12 hr abuse-deterrent tablet Take 20 mg by mouth every 12 (twelve) hours Do not crush, chew, or split. oxyCODONE (ROXICODONE) 10 MG immediate release tablet TAKE 1 TABLET BY MOUTH FOUR TIMES DAILY NEEDED pantoprazole (PROTONIX) 20 MG EC tablet Take 20 mg by mouth 1 (one) time each day before breakfast Do not crush, chew, or split. tamsulosin (FLOMAX) 0.4 MG 24 hr capsule Take 0.4 mg by mouth 1 (one) time each day venlafaxine 150 MG 24 hr tablet Take 150 mg by mouth in the morning. carvedilol (Coreg) 25 MG tablet Take 1 tablet (25 mg total) by mouth in the morning and 1 tablet (25 mg total) in the evening. Take with meals. 180 tablet 3 No current facility-administered medications for this visit. Allergies Allergen Reactions Acetaminophen Other reaction(s): pain incresed Caffeine Ciprofloxacin Tendon rupture Erythromycin Morphine Other (see comments) Elevated BP Elevated bp Zocor [Simvastatin] Body aches Codeine Anxiety and Other (see comments) anxiety Objective: Vitals: 04/07/24 1624 BP: 134/58 Pulse: 60 Weight: 172 lb (78 kg) Constitutional: He does not appear ill. HEENT: Mouth/Throat: Oropharynx is clear and moist. Eyes: Pupils are equal, round, and reactive to light. Neck: No JVD present. Cardiovascular: Regular rhythm. He exhibits no edema. Pulmonary/Chest: Breath sounds normal. Abdominal: Soft. There is no abdominal tenderness. Musculoskeletal: Normal range of motion. Neurological: He is alert. Skin: Skin is warm. Psychiatric: He has a normal mood and affect. No results found for: EGFRAFR eGFR Non-Afr French Date Value Ref Range Status 03/03/2024 27 Final Chemistry Lab Units 04/01/24 1516 03/03/24 1434 03/03/24 0000 02/03/24 0525 01/29/24 0547 01/22/24 1009 01/22/24 1009 01/21/24 1405 12/30/23 0000 03/11/23 0000 11/27/22 1421 07/27/22 1207 CREATININE mg/dL 2.10* 2.41* 2.41* 2.41* 3.88* 2.16* < > 2.99* 1.89* 2.17 < > 1.6* 1.8* BUN mg/dL 28* 72* 72* 72* 76* 31* < > 47* 33* 36 < > 22 28* BUN / CREAT RATIO -- 29.9 29.9 -- 19.6 14.4 -- 15.7 17 -- < > -- -- EGFRNAFR -- -- 27 -- -- -- -- -- 31 -- 44 38 GLUCOSE mg/dL 171* 232* -- 220* 188* -- 316* 142* 170 < > 251* 97 POTASSIUM mmol/L 5.1 5.1 5.1 5.1 4.0 3.5 < > 6.4* 5.4* 4.2 < > 4.1 4.9 SODIUM mmol/L 135 138 138 138 127* 135 < > 133 136 138 < > 140 142 CO2 mmol/L 27 30 30 30 29 27 < > 25 24 33 < > 30* 22 CHLORIDE mmol/L 100 100 100 -- 84* 97 -- 97 96 102 < > 97* 104 ALBUMIN g/dL -- 2.8* 2.8* -- 3.2 2.6* -- 3.5 3.9 -- < > 2.9* 4.4 URIC ACID mg/dL -- -- -- -- -- -- -- 7.4 -- -- -- -- BILIRUBIN TOTAL mg/dL -- -- -- 0.7 0.7 -- 0.6 -- -- -- -- -- AST unit/L -- -- -- 27 -- 19 -- -- -- -- -- < > = values in this interval not displayed. Bone Mineral Lab Units 04/01/24 1516 03/03/24 1434 03/03/24 0000 02/03/24 0525 01/29/24 0547 01/22/24 1009 01/22/24 1009 01/21/24 1405 12/30/23 0000 11/20/23 0809 10/04/23 1347 09/21/23 0000 07/23/23 1339 CALCIUM mg/dL 9.1 8.8 8.8 8.8 7.4* 7.5* < > 8.5 9.1 < > 9.2 8.2* < > 7.4* PHOSPHORUS mg/dL -- 3.2 3.2 3.2 -- -- -- -- 3.2 -- 3.3 3.1 -- 3.9 ALK PHOS unit/L -- -- -- 89 92 -- 115 -- -- -- -- -- -- PTH pcg/mL -- 300.2* -- -- -- -- -- 96* -- -- -- -- 162* VIT D 25 HYDROXY ng/mL -- -- -- -- -- -- -- 34.2 -- -- -- -- 10.5* < > = values in this interval not displayed. CBC Lab Units 04/01/24 1516 03/03/24 1434 03/03/24 0000 12/30/23 0000 WBC AUTO K/uL 8.25 11.9* -- 10.5* RBC AUTO M/uL 3.81* 3.90* -- -- MCV fL 95.3 95.1 -- 89.2 HEMATOCRIT % 36.3* 36.6* 36.6* 38.9* HEMOGLOBIN g/dL 11.4* 11.7* 11.7* 12.6* PLATELETS AUTO K/uL 207 290 290 210 Urine Lab Units 03/03/24 1640 07/26/23 1332 ALB MG/G CREAT UR mg/g creat 504* 5,138.4* No lab exists for component: SPECGRAV , GLUCOSEUR , BILIRUBINUR , RBCUR , UPROTEIN , LEUKOCYTESUR , NITRITE PLAN: Assessment & Plan 1. Stage 3 chronic kidney disease, not otherwise specified (HCC) 2. Hypertension 3. Secondary hyperparathyroidism of renal origin (HCC) 4. Persistent proteinuria 5. Heart failure with normal ejection fraction (HCC) Kidney function is at baseline. He has macroscopic proteinuria. 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 US showed also simple renal cysts. Ct scan of the abdomen back in 2019 showed a renal cyst. Blood pressure is high. He is off ACEi and amlodipine. He remains off ACEi He is no longer on SGTL2i (uti). He has secondary hyperparathyroidism and he is on vitamin d analogs. Carotid ultrasound on 10/2023 shoed right ICA stenosis closer to 50%. Left ICA closer to 50%. LVEF 55-60% with Grade II (moderate) diastolic dysfunction. PLAN Carvedilol 25 mg bid follow kidney function and electrolytes UPCR iPTH avoid nephrotoxins Low sodium and potassium diet Orders Placed This Encounter Renal funtion panel urine albumin / creatinine ratio Vit D 25 hydroxy PTH, intact Return in 4 months (on 08/05/2024). Mihir Rabago MD documented in this encounter Plan of Treatment Upcoming Encounters Date Type Department Care Team (Late st Contact Info) Description 08/05/2024 1:15 PM EDT Office Visit [facility] [address] [address] Jimena Rust ARNP [address] [address] Scheduled Orders Name Type Priority Associated Diagnoses Orde r Schedule Renal funtion panel Lab Routine Stage 3 chronic kidney disease, not otherwise specified (HCC) Expected: 04/07/2024, Expires: 05/08/2025 urine albumin / creatinine ratio Lab Routine Stage 3 chronic kidney disease, not otherwise specified (HCC) Expected: 04/07/2024, Expires: 05/08/2025 Vit D 25 hydroxy Lab Routine Stage 3 chronic kidney disease, not otherwise specified (HCC) Expected: 04/07/2024, Expires: 05/08/2025 PTH, intact Lab Routine Stage 3 chronic kidney disease, not otherwise specified (HCC) Expected: 04/07/2024, Expires: 05/08/2025 documented as of this encounter Visit Diagnoses Diagnosis Stage 3 chronic kidney disease, not otherwise specified (HCC)- Primary Hypertension Secondary hyperparathyroidism of renal origin (HCC) Secondary hyperparathyroidism of renal origin Persistent proteinuria Heart failure with normal ejection fraction (HCC) documented in this encounter Care Teams Mill Stenciler Relationship Specialty Start Date End Date Praful Davenport MD [address] [place] [address] PCP - General Internal Medicine 02/27/24 documented as of this encounter
--- OUTSIDE RECORDS SUMMARY | 2024-04-18 14:23 | XMS_ITS ---
Author Organization [facility] Address [address] [place] [address] Phone Care Team Providers Care Loan Collector Name Role Phone Praful Davenport MD Primary Care Provider [phone] [facility], Un[facility] [phone] Plan of Treatment No Plan of Treatment Recorded Assessments Includes: Assessments for all patient encounters No Assessments Recorded Medical Equipment - Implanted Devices Includes: Current and historical Devices No Medical Equipment Recorded Medications Administered Includes: Administered Medications in patient's chart No Administered Medications Recorded Results Includes: Results from 04/18/2023 through 04/18/2024 No Results Recorded For Specified Dates History [...] Subscriber Relationship Effect luis Dates 1 - [facility] [phone] Dimitri Snow Self Clinical Notes Includes: Signed Clinical Notes starting from 02/26/2022 No Clinical Notes Recorded
--- OUTSIDE RECORDS SUMMARY | 2024-04-18 14:24 | XMS_ITS | Data Portability ---
Author Organization [place] [facility] Address [address] [place] [phone] Care Team Providers Care Shuffle Board Operator Name Role Phone DEMARCUS REMY Primary [...] thyro id No observ ation record ed. [facility] ([facility]) [address] [place] [address], [address], 01/14/2024 08:50:42 01/14/20 24 10/04/2023 US, neck, soft tissu e No observ ation record ed. [email or web address] Not Available 12/18 09:42:47 01/14/20 24 07/20/2022 US, neck, soft tissu e No observ ation record ed. [email or web address] Not Available 12/18 09:42:47 01/14/20 24 11/04/2019 CT, neck, soft tissu e, w/ contr ast No observ ation record ed. [email or web address] Not Available 12/18 09:42:47 01/16/20 24 10/04/2023 US, neck, soft tissu e No observ ation record ed. [facility] ([facility]) [address] [place], [address], 01/17/2024 12:46:44 Result Notes None recorded. Problems Name Problem SNOMED Code Status Onset Date Resolution Date Notes Provider Name and Address Organization Details Recorded Time Stomatitis 76883218 Active 2015 Oral thrush ; Note: Date Diagno sed: 016 4:50 PM (B37.0 ) Not Available [facility] 4 02:57:04 Candidiasis of mouth 16845934 Active 2015 Oral thrush ; Note: Date Diagno sed: 016 4:50 PM (B37.0 ) Not Available [facility] 4 02:57:04 Dysphagia 72599140 Active 2015 Dyspha shelby, unspec ified; Note: Date Diagno sed: 016 4:50 PM (R13.1 0) Not Available [facility] 4 02:57:05 Gastroesophag eal reflux disease without esophagitis 198603464 Active 2023 HEVER BROWER MD [address] [place] [address], [phone] , [facility] 14:09:22 Problem Notes None recorded. Procedures Surgical History Date Name Laterality Status Provider Name and Address Organization Details Recorded Time 01/07/2024 FFL_RE completed HEVER BROWER MD [address] [place] [address], [phone], [place] - [facility] 01/07/2024 14:09:36 Imaging Results Imaging Date Name Status LastModified by Organiz ation Details LastModified Time 11/04/2019 US, thyroid completed hayley [facility] ([facility]) [address] [place], [address], 01/14/2024 08:50:42 10/04/2023 US, neck, soft tissue completed [email or web address] Information not available 01/15/2024 09:42:47 07/20/2022 US, neck, soft tissue completed Information not available 01/15/2024 09:42:47 11/04/2019 CT, neck, soft tissue, w/ contrast completed Information not available 01/15/2024 09:42:47 10/04/2023 US, neck, soft tissue completed [email or web address] [facility] ([facility]) [address] [place], [address], 01/17/2024 12:46:44 Procedure Notes None recorded. Medical Equipment None Reported. Allergies Allergen ID Allergen Name Allergen Category Reaction Reaction Severity Criticality Documentation Date Start Date Code Code System Note Provider Name and Address Organization Details Recorded Time 321050 codeine sulfate medicatio n other Not available Not available 07/31/2023 15424 RxNorm React ion: unkno wn, unspe cifie d;; Not Available [facility] 4 01:23:09 453294 morphine medicatio n other Not available Not available 07/31/2023 7052 RxNorm React ion: unkno wn, unspe cifie d;; Not Available [facility] 4 01:23:10 Medications Name Sig Start Date Stop Date Status Note LastModified by Organization Details LastModified Time sure comfort pen needles 32gx5/32 32g x 4 mm misc active Not Available Not Available Not Available losartan 50 mg tablet 2015 active Medicati on ID: 429003 D uration Value: 30 Brand Name: losartan Send Method: E-Prescr ibed Sub s Allowed: subs OK Speci al Instruct ion: take 1 tablet by mouth once daily Me dication GenericN tana: losartan Not Available Not Available Not Available metformin 500 mg tablet 2015 active Medicati on ID: 690350 D uration Value: 30 Brand Name: metformi [...] a day 2015 active Medicati on ID: 925630 D uration Value: 10 Prescri bed By [...] 24 hr 2015 active Medicati on ID: 800994 D uration Value: 30 Brand Name: venlafax ine Send Method: E-Prescr ibed Sub s Allowed: subs OK Speci al Instruct ion: take 1 capsule by mouth once daily with 37.5MG FOR A TOTAL DAILY DOSE OF 112MG Me dication GenericN tana: venlafax ine Not Available Not Available Not Available atorvasta tin 20 mg tablet 2015 active Medicati on ID: 362407 D uration Value: 30 Brand Name: atorvast atin Sen d Method: E-Prescr ibed Sub s Allowed: subs OK Speci al Instruct ion: take 1 tablet by mouth once daily Me dication GenericN tana: atorvast atin Not Available Not Available Not Available benztropi ne 0.5 mg tablet 2015 active Medicati on ID: 151752 D uration Value: 30 Brand Name: benztrop [...] mg tablet 2015 active Medicati on ID: 264840 D uration Value: 30 Brand Name: trazodon e Send Method: E-Prescr ibed Sub s Allowed: subs OK Speci al Instruct ion: take 1 tablet by mouth once daily at bedtime Medicati onGeneri cName: trazodon e Not Available Not Available Not Available polyethyl jennifer glycol 3350 17 gram oral powder packet 2014 active Medicati on ID: 157291 D uration Value: 30 Brand Name: polyethy [...] 28 gauge 2015 active Medicati on ID: 146008 D uration Value: 25 Brand Name: FreeStyl [...] 24 hr 2015 active Medicati on ID: 524661 D uration Value: 15 Brand Name: venlafax ine Send Method: E-Prescr ibed Sub s Allowed: subs OK Speci al Instruct ion: take 1 capsule by mouth once daily Me dication GenericN tana: venlafax ine Not Available Not Available Not Available olanzapin e 10 mg tablet 2015 active Medicati on ID: 334907 D uration Value: 30 Brand Name: olanzapi [...] mg tablet 2014 active Medicati on ID: 717391 D uration Value: 14 Brand Name: ciproflo xacin HCl Send Method: E-Prescr ibed Sub s Allowed: subs OK Speci al Instruct ion: take 1 tablet by mouth twice a day Medi cationGe nericNam e: ciproflo xacin HCl Not Available Not Available Not Available sulfameth oxazole 800 mg-trimet hoprim 160 mg tablet 2015 active Medicati on ID: 454665 D uration Value: 28 Brand Name: sulfamet [...] mg tablet 2015 active Medicati on ID: 918326 D uration Value: 30 Brand Name: lamotrig [...] mg tablet 2015 active Medicati on ID: 533643 D uration Value: 15 Brand Name: risperid [...] Not Available Not Available No t Available AlgenetixToMd7 Ultra Test strips USE DIRECTED TO CHECK [...] mcg tablet 2015 active Medicati on ID: 503284 D uration Value: 30 Brand Name: levothyr oxine Se nd Method: E-Prescr ibed Sub s Allowed: subs OK Speci al Instruct ion: take 1 tablet by mouth once daily and 1/2 tablet ON SUNDAYS Medicati onGeneri cName: levothyr oxine Not Available Not Available Not Available nystatin 100,000 unit/gram topical cream 12/13 completed Medicati on ID: 086482 D uration Value: 7 Brand Name: nystatin Send Method: E-Prescr ibed Sub s Allowed: subs OK Medic ationGen ericName : nystatin Not Available Not Available Not Available lidocaine 5 % topical patch 2015 active Medicati on ID: 401387 D uration Value: 30 Brand Name: lidocain [...] mg capsule 2015 active Medicati on ID: 845043 D uration Value: 28 Brand Name: dronabin ol Send Method: E-Prescr ibed Sub s Allowed: subs OK Speci al Instruct ion: take 1 capsule by mouth twice a day before meals Me dication GenericN tana: dronabin ol Not Available Not Available Not Available gabapenti n 100 mg capsule 2015 active Medicati on ID: 430045 D uration Value: 30 Brand Name: gabapent [...] oral powder 2014 active Medicati on ID: 725932 D uration Value: 30 Brand Name: polyethy abby glycol 3350 Sen d Method: E-Prescr ibed Sub s Allowed: subs OK Speci al Instruct ion: take 17GM (DISSOLV ED IN WATER) by mouth once daily Me dication GenericN tana: polyethy abby glycol 3350 Not Available Not Available Not Available methylpre dnisolone 4 mg tablets in a dose pack 2015 active Medicati on ID: 427952 D uration Value: 6 Brand Name: methylpr [...] topical cream 2014 active Medicati on ID: 955877 D uration Value: 14 Brand Name: ketocona [...] mg tablet 2015 active Medicati on ID: 686201 D uration Value: 28 Brand Name: diazepam [...] mg capsule 2015 active Medicati on ID: 895515 D uration Value: 15 Brand Name: hydroxyz [...] mg tablet 2015 active Medicati on ID: 445241 D uration Value: 30 Brand Name: Januvia [...] topical ointment 2015 active Medicati on ID: 428275 D uration Value: 30 Brand Name: Jacqueline [...] 2nd Gen Pen Needle 32 gauge x /32 USE TO ADMINIST ER INSULIN FOUR TIMES [...] Updated DateTime 01/07/2024 180.34 cm 25.4 kg/m2 71924.81 g Adam Owusu [place] - [facility] 01/07/2024 13:57:32 Social History None recorded. Functional Status None recorded. Mental Status None recorded. Family History Nothing Reported. Medical History No medical history recorded. Past Encounters Encounter ID Performer Location Encounter Start Date Encounter Closed Date Diagnosis/Indication Diagnosis SNOMED-CT Code Diagnosis ICD10 Code Diagnosis Note [id number] HEVER BROWER MD [facility] [address] [address] 01/07/2024 13:48:57 01/07/2024 14:24:57 Gastroesophageal reflux disease without esophagitis 700879309 K21.9 continue pantoprazo le. Dysphagia 16680482 R13.1 0 laryngosco py was normal. I [...] - MEDICARE ADVANTAGE PLAN (MEDICARE REPLACEMENT HMO) [id number] Dimitri Snow [id number] Dimitri Snow Notes Date Note Type Note [...] Takes pantoprazole 40mg daily. HEVER BROWER MD [address] [place] [address], [phone], [facility] - [facility] 01/07/2024 14:38:53
--- OUTSIDE RECORDS SUMMARY | 2024-04-18 14:24 | XMS_ITS | Encounter Summary ---
Author Organization [facility] Address [address] [place] [address] Care Team Providers Care Retail Marketing Coordinator Name Role Phone Praful Davenport MD Primary Care Provider [phone] Reason for Visit * Reason Comments Rectal Pain * Consultation (Routine) - Closed Specialty Diagnoses / Procedures Referred By Contact Referred To Contact Gastroenterology Diagnoses Rectal pain Praful Davenport MD [address] [place] [address] [facility] [address] [address] Referral ID Status Reason Start Date Expiration Date V isits Requested Visits Authorized [id number] Closed Specialty Services Required 03/03/2024 03/03/2025 1 1 Encounter Details Date Type Department Care Team ([facility] st Contact Info) Description 04/11/2024 2:00 PM EST Consult Gastroenterology - [place] [address] [address] Crista Peace NP [address] [address] Esophageal dysphagia (Primary Dx); Proctalgia fugax; Screening for colorectal cancer; Gastroesophageal reflux disease without esophagitis; Drug-induced constipation Social History Tobacco Use Types Packs/Day Years Used Date Smoking Tobacco: Former Cigarettes 2 51 0 04/19/1965 - 04/19/2016 Smokeless Tobacco: Former Alcohol Use Standard Drinks/Week Comments No 0 (1 standard drink = 0.6 oz pur e alcohol) Interpersonal Safety Answer Date Record ed Physical Abuse 01/25/2024 Verbal Abuse 01/25/2024 Sex and Gender Information Value Date Recorded Sex Assigned at Not on file Gender Identity Not on file Sexual Orientation Not on file Job Start Date Occupation Industry Not on file Not on file Not on file documented as of this encounter Last Filed Vital Signs Vital Sign Reading Time Taken Comments Blood Pressure 115/80 04/11/2024 1:57 PM EST Pulse 80 04/11/2024 1:57 PM EST Temperature - - Respiratory Rate - - Oxygen Saturation 95% 04/11/2024 1:57 PM EST Inhaled Oxygen Concentration - - Weight 78 kg (172 lb) 04/11/2024 1:57 PM EST Height 180.3 cm (5' 11 ) 04/11/2024 1:57 PM EST Body Mass Index 23.99 04/11/2024 1:57 PM EST documented in this encounter Functional Status Functional Status Response Date of Assess ment Are you deaf or do you have serious difficulty hearing? No 02/16/2024 Are you blind or do you have serious difficulty seeing, even when wearing glasses? No 02/16/2024 Do you have serious difficul ty walking or climbing stairs? Yes-USES A CANE. 02/16/2024 Do you have serious difficul ty dressing or bathing? Yes 02/16/2024 Because of a physical, menta l, or emotional condition, do you have serious difficulty doing errands alone such as visiting the doctor? Yes 02/16/2024 Cognitive Status Response Date of Assessm ent Because of a physical, menta l, or emotional condition, do you have serious difficulty concentrating, remembering, or making decisions? (5 years old or older) Yes 02/16/2024 documented as of this encounter Progress Notes * Crista Peace NP - 04/11/2024 2:00 PM EST CONSULT REQUEST CHIEF COMPLAINT: Dysphagia HPI: Dimitri Snow is a 74 y.o. old male whose PMH includes former tobacco use, acute kidney injury, adrenal hematoma, abdominal aortic aneurysm, adjustment disorder with anxious mood, and aphasia, anxiety, avascular necrosis of femoral head, carotid stenosis, cataract, cervicalgia, chronic sinusitis,chronic kidney disease stage IV, close compression fracture of thoracolumbar vertebrae, depression,type 2 diabetes mellitus, erectile dysfunction, GERD, hyperlipidemia, hypothyroidism, peripheral neuropathy, hypertension, peripheral vascular disease, pulmonary nodules and thyroid cancer was referred to us by Praful Davenport MD presents to the gastroenterology department today for evaluation of dy sphagia. Patient is accompanied by his during this visit. He is using a cane for ambulation. Patient reports ongoing dysphagia for approximately 7 months. He reports feeling of food stuck behind his breastbone and regurgitation of undigested food particles. He denies choking episodes. He eats soft foods and takes his time while eating . He has history of chronic GERD that is well-managedwith PPI and dietary changes. He reports chronic constipation and subsequent anal pain due to anal fissure. He notes chronic use of OxyContin for back pain exacerbating constipation. He denies fever or malaise, nausea, vomiting, odynophagia, hematemesis, abdominal pain or discomfort, loss of appetite, unintentional weight loss, change in bowel habits from baseline, melena or hematochezia. He notes former tobacco use. He denies current alcohol or marijuana use. Colonoscopy 03/11/2013: Minimal diverticulosis. Otherwise normal examination. EGD 08/24/2016: Mild gastritis. No evidence of esophagitis or esophageal strictures. Incidentally found a flat lesion in the mid esophagus. ROS: GENERAL: No malaise, significant weight loss or fever HEENT: No changes in hearing or vision, nose bleeds NECK: No lumps, goiter, pain or significant neck swelling RESPIRATORY: No cough, wheezing or shortness of breath CARDIOVASCULAR: No chest pain GI: See HPI MUSCULOSKELETAL: Chronic back pain SKIN: No lesions, rash or itching PAST MEDICAL HISTORY: Patient Active Problem List Diagnosis Acute kidney injury superimposed on CKD (CMS/HCC) Adrenal hematoma Abdominal aortic aneurysm (AAA) (CMS/HCC) Adjustment disorder with anxious mood Anal fissure Anxiety Avascular necrosis of femoral head (CMS/HCC) Carotid stenosis Cataract Cervicalgia Chronic rectal pain Chronic sinusitis CKD (chronic kidney disease) stage 4, GFR 15-29 ml/min (CMS/HCC) Closed compression fracture of thoracolumbar vertebra (CMS/HCC) COVID-19 Depression DM (diabetes mellitus), type 2 with peripheral vascular complications (CMS/HCC) DM (diabetes mellitus), type 2 with renal complications ([facility]/HCC) Dyspnea on exertion Erectile dysfunction Facet syndrome Gastroesophageal reflux disease Hyperlipidemia Hypothyroidism Microalbuminuria Peripheral neuropathy Postsurgical hypothyroidism Proctalgia fugax Prostatitis, chronic Hypertension PVD (peripheral vascular disease) ([facility]/HCC) Radiculitis, lumbosacral Spinal stenosis, lumbar Type 2 diabetes mellitus with cataract ([facility]/HCC) Pulmonary nodules Hearing loss Type 2 diabetes mellitus with neurologic complication ([facility]) Stage 1 mild COPD by GOLD classification ([facility]) Known medical problems PAST SURGICAL HISTORY: Past Surgical History: Procedure Laterality Date BACK SURGERY PROCEDURE: HISTORICAL BACK SURGERY; COMMENT: 4 back operations COLONOSCOPY 01/20/2004 PROCEDURE: HISTORICAL COLONOSCOPY; COMMENT: Up to cecum, regular preparation, sigmoid diverticulosis (Dr. Gimenez) COLONOSCOPY 2012 PROCEDURE: HISTORICAL COLONOSCOPY; COMMENT: Minimal diverticulosis, sigmoid colon. FLEXIBLE SIGMOIDOSCOPY 05/03/2018 PROCEDURE: HISTORICAL FLEXIBLE SIGMOIDOSCOPY; COMMENT: negative to 20 cm. HAND SURGERY PROCEDURE: HISTORICAL HAND SURGERY; COMMENT: bilateral CTS HERNIA REPAIR PROCEDURE: HISTORICAL HERNIA REPAIR/ING NECK SURGERY PROCEDURE: HISTORICAL NECK SURGERY; COMMENT: 3 procedures UPPER GASTROINTESTINAL ENDOSCOPY 08/24/2016 PROCEDURE: [place] UPPER GI ENDOSCOPY PERFORMED; COMMENT: Muslu[facility]; normal. UPPER GASTROINTESTINAL ENDOSCOPY 05/19/2009 PROCEDURE: [place] UPPER GI ENDOSCOPY PERFORMED; COMMENT: Nl esophagus, gastritis- biopsy: inflammation consistent with gastritis or ulcer (HPylori-), normal duodenum-biopsy normal UPPER GASTROINTESTINAL ENDOSCOPY 05/19/2003 PROCEDURE: [place] UPPER GI ENDOSCOPY PERFORMED; COMMENT: grade I erosive esophagitis, erosive gastritis, normal duodenum SOCIAL HISTORY: Social History Tobacco Use Smoking status: Former Current packs/day: 0.00 Average packs/day: 2.0 packs/day for 51.0 years (102.0 ttl pk-yrs) Types: Cigarettes Start date: 04/19/1965 Quit date: 04/19/2016 Years since quittin.9 Smokeless tobacco: Former Substance Use Topics Alcohol use: No Drug use: Yes Types: Marijuana/Cannabis FAMILY HISTORY: Family History Problem Relation Name Age of Onset Diabetes Mother decesaed Other (Other: cancer) Father 55.00 metastatic cancer of unknown origin MEDICATIONS: Outpatient Medications Marked as Taking for the 04/11/24 encounter (Consult) with Crista Peace NP Medication Sig Dispense Refill alcohol swabs pads, medicated 1 Units by Does not apply route daily. To clean skin before injection amLODIPine (NORVASC) 5 mg tablet Take 1 tablet (5 mg total) by mouth 1 (one) time each day. aspirin 81 mg EC tablet Take 1 tablet (81 mg total) by mouth daily. atorvastatin (LIPITOR) 80 mg tablet TAKE 1 TABLET BY MOUTH AT BEDTIME 90 tablet 1 BD Yana 2nd Gen Pen Needle 32 gauge x 5/32 needle USE TO ADMINISTER INSULIN FOUR TIMES DAILY 200 each 1 blood-glucose meter kit E11.51 to check sugars 3 times a day blood-glucose meter kit Use to test sugars carvediloL (COREG) 25 mg tablet Take 1 tablet (25 mg total) by mouth 2 (two) times a day with meals. clopidogreL (PLAVIX) 75 mg tablet Take 1 tablet (75 mg total) by mouth 1 (one) time each day. cyclobenzaprine (FLEXERIL) 5 mg tablet Take 1 tablet (5 mg total) by mouth at bedtime. docusate sodium (COLACE) 100 mg capsule Take 1 capsule (100 mg total) by mouth 2 (two) times a day if needed for constipation. flash glucose scanning reader (FreeStyle Jesusita 2 [place]) misc 1 Device by Does not apply route continuous. flash glucose sensor (FREESTYLE JESUSITA 2 SENSOR [facility] [place] USE DIRECTED EVERY 14 DAYS glucose blood test strip E11.51 to check sugars 3 times a day HumaLOG KwikPen Insulin 100 unit/mL injection pen INJECT SUBQ 3 TIMES/DAY BEFORE MEALS PER SS 70-99:5 U, 100-149: 10 U,150-199:13 U, 200-249:16 U, 250-299:19 U, 300-349:22 U, 350-399:25 U,OVER 400 CALL MD 75 mL 1 hydrALAZINE (APRESOLINE) 100 mg tablet Take 1 tablet (100 mg total) by mouth 3 (three) times a day. hydrocortisone (ANUSOL-HC) 2.5 % rectal cream Insert into the rectum 4 (four) times a day if neededfor hemorrhoids (rectal discomfort). Apply to affected areas 30 g 0 hydrOXYzine HCL (ATARAX) 25 mg tablet TAKE 1 TABLET BY MOUTH EVERY 8 HOURS NEEDED FOR ITCHING 270 tablet 1 Lantus Solostar U-100 Insulin 100 unit/mL (3 mL) injection pen INJECT SUBCUTANEOUSLY 85 UNITS DAILY90 mL 0 levothyroxine (SYNTHROID, LEVOTHROID) 150 mcg tablet Take 1 tablet (150 mcg total) by mouth 1 (one)time each day before breakfast. lidocaine (Lidocaine Viscous) 2 % solution Apply 1 Each topically 4 times daily as needed for Other(rectal pain). APPLY A SMALL AMOUNT TOPICALLY TO RECTUM FOUR TIMES DAILY NEEDED FOR PAIN 100 mL 5 metoclopramide (REGLAN) 5 mg tablet Take 1 Tablet by mouth 2 times daily as needed (vomiting) for up to 20 days. multivit-min/folic/vit K/lycop (MEN'S MULTIVITAMIN ORAL) Take by mouth 1 (one) time each day. ONETOUCH DELICA LANCETS [facility] [place] E11.51 to check sugars 3 times a day oxyCODONE (ROXICODONE) 10 mg immediate release tablet Take 1 tablet (10 mg total) by mouth every 6 (six) hours if needed for severe pain. Take 1 tablet by mouth 4 times daily as needed for Other (breakthrough pain) for up to 28 days. Max Daily Amount: 40 mg 10 tablet 0 OxyCONTIN 20 mg 12 hr abuse-deterrent tablet Take 1 tablet (20 mg total) by mouth every 12 (twelve)hours. Take 20 mg by mouth See Admin Instructions for 28 days. Take 1 Tab BID and 2 Tabs at bedtimeMax Daily Amount: 40 mg 10 tablet 0 pantoprazole (PROTONIX) 40 mg EC tablet Take 1 tablet (40 mg total) by mouth 1 (one) time each day before breakfast. Do not crush, chew, or split. venlafaxine XR (EFFEXOR-XR) 150 mg 24 hr capsule Take 1 capsule (150 mg total) by mouth 1 (one) time each day. ALLERGIES: Allergies Allergen Reactions Caffeine Ciprofloxacin Tendon rupture Erythromycin Morphine Sulfate Other Reaction(s): OTHER Elevated bp Penicillin Unknown Simvastatin Body Aches Body aches Codeine Anxiety and Other Other Reaction(s): OTHER anxiety PHYSICAL EXAM: Visit Vitals BP 115/80 Pulse 80 Ht 1.803 m (71 ) Wt 78 kg (172 lb) SpO2 95% BMI 23.99 kg/m?? Smoking Status Former BSA 1.98 m?? APPEARANCE: Alert and in no acute distress EYES: Conjunctiva and sclera normal. MOUTH/THROAT: No erythema, exudates or lesions noted NECK: Neck supple, no adenopathy HEART: RRR with normal S1 and S2 LUNG: clear to auscultation ABDOMEN: soft non tender, no ascites, guarding, or rebound. RECTAL: Exam deferred NEURO: Awake, alert and oriented x 3 SKIN: Skin color, texture, turgor normal. LABS: Lab Results Component Value Date WBC 11.9 (H) 03/03/2024 HGB 11.7 (L) 03/03/2024 HCT 36.6 (L) 03/03/2024 MCV 95.1 03/03/2024 PLT 290 03/03/2024 Lab Results Component Value Date ALT 48 02/03/2024 AST 27 02/03/2024 ALKPHOS 89 02/03/2024 BILITOT 0.7 02/03/2024 IMAGING: No results found for this or any previous visit from the past 365 days. IMPRESSION: 1. Esophageal dysphagia 2. Proctalgia fugax 3. Screening for colorectal cancer 4. Gastroesophageal reflux disease without esophagitis 5. Drug-induced constipation PLAN: Dimitri Snow is a 74 y.o. old male whose PMH includes acute kidney injury, adrenal hematoma, abdominal aortic aneurysm, adjustment disorder with anxious mood, and aphasia, anxiety, avascular necrosis of femoral head, carotid stenosis, cataract, cervicalgia, chronic sinusitis, chronic kidney disease stage IV, close compression fracture of thoracolumbar vertebrae, depression, type 2 diabetes mellitus, erectile dysfunction, GERD, hyperlipidemia, hypothyroidism, peripheral neuropathy, hypertension, peripheral vascular disease, pulmonary nodules and thyroid cancer presents for evaluation of dysphagia. 1. Esophageal dysphagia: Patient was encouraged to cut food into small pieces, chew food thoroughly and pace self. He may transition to soft foods pending EGD. I will schedule diagnostic EGD with dilatation as needed if strictures present. Also EGD with biopsy to rule out Leal's esophagus given history of GERD and former tobacco use. 2. Proctalgia fugax: He politely declines in office rectal exam. Chronic. He was previously following with Dr. Archuleta. Well-managed with lidocaine ointment. Encouraged to avoid constipation. Keep area clean and dry. 3. Screening for colorectal cancer: Historical colonoscopy 2012 was unremarkable. I reviewed colorectal cancer screening guidelines(based on age 74), risk and benefits. He would like to proceed with screening colonoscopy. 4. GERD: Well-managed with use of pantoprazole. He was encouraged to identify and eliminate triggers, maximize dietary and lifestyle changes. Continue taking pantoprazole as directed. 5. Drug-induced constipation: Chronic OxyContin use. He was encouraged to increase dietary fiber and fluid intake. May supplementfiber with Metamucil or Benefiber. He is currently using docusate sodium with good results. Patient understands the risks of EGD/colonoscopy include infection, bleeding and/or bowel perforation with its own emergent surgery and complication. Polypectomy and/or tissue biopsy may be performedduring the procedure. Follow-up after EGD/colonoscopy or sooner if needed. Patient agrees with the above plan and understands the need to follow up as indicated. Please note, this note may have been created in part by using [employer] dictation software, and therefore, it may contain typographical and/or grammatical errors inherent in a voice recognition software program I would like to thank Praful Davenpotr MD for the opportunity to partake in the patient's care. No orders of the defined types were placed in this encounter. AMB REFERRAL TO GASTROENTEROLOGY documented in this encounter Plan of Treatment Upcoming Encounters Date Type Department Care Team (Late st Contact Info) Description 04/22/2024 2:00 PM EST Office Visit Orthopedic Surgery - [place] [address] [address] Jordon Bardales, DPM [address] [address] 04/23/2024 10:30 AM EST Office Visit [address] [phone] Praful Davenport MD [address] [place] [address] 05/27/2024 1:15 PM EDT Office Visit [address] [phone] Praful Davenport MD [address] [place] [address] 06/06/2024 12:30 PM EDT Appointment [facility] Endoscopy [address] [place] [address] Edison Ledezma MD 229 [facility] [address] [place] [address] 08/22/2024 1:00 PM EDT Office Visit Adult Medicine [facility] [address] [place] [address] Praful Davenport MD [address] [place] [address] documented as of this encounter Visit Diagnoses Diagnosis Esophageal dysphagia- Primary Dysphagia, pharyngoesophageal phase Proctalgia fugax Anal spasm Screening for colorectal cancer Gastroesophageal reflux disease without esophagitis Esophageal reflux Drug-induced constipation Other constipation documented in this encounter Orders Outpatient Referral Count Last Ordered Date st Ordered Date AMB REFERRAL TO GASTROENTEROLOGY 04/11/19 25 documented in this encounter Care Teams Retail Marketing Coordinator Relationship Specialty Start Date End Date Praful Davenport MD [address] [place] [id number] PCP - General Internal Medicine 01/22/24 documented as of this encounter
--- OUTSIDE RECORDS SUMMARY | 2024-04-18 14:24 | XMS_ITS | Encounter Summary ---
Author Organization [facility] Address [address] [place] [address] Care Team Providers Care Odd Piece Checker Name Role Phone Praful Davenport MD Primary Care Provider [phone] Encounter Details Date Type Department Care Team ([facility] Contact Info) Description 03/11/2024 Telephone Pulmonology - [address] [address] Diomedes [place], [place] Social History Tobacco Use Types Packs/Day Years [...] on file documented as of this encounter Functional Status Functional Status Response [...] Yes 02/16/2024 documented as of this encounter Plan of Treatment Upcoming Encounters Date Type Department Care Team (Late st Contact Info) Description 04/22/2024 2:00 PM EST Office Visit Orthopedic Surgery - [place] [address] [address] Jordon Bardales, DPM [address] [address] 04/23/2024 10:30 AM EST Office Visit [address] [phone] Praful Davenport MD [address] [place] [address] 05/27/2024 1:15 PM EDT Office Visit [address] [phone] Praful Davenport MD [address] [place] [address] 06/06/2024 12:30 PM EDT Appointment [facility] Endoscopy [address] [place] [phone] Edison Ledezma MD [address] [address] 08/22/2024 1:00 PM EDT Office Visit [address] [phone] Praful Davenport MD [address] [place] [address] documented as of this encounter Visit Diagnoses Not on filedocumented in this encounter Care Teams Odd Piece Checker Relationship Specialty Start Date End Date Praful Davenport MD [address] [place] [id number] PCP - General Internal Medicine 01/22/24 documented as of this encounter
--- OUTSIDE RECORDS SUMMARY | 2024-04-18 14:24 | XMS_ITS | Encounter Summary ---
Author Organization [facility] Address [address] [place] [address] Care Team Providers Care Burn Table Operator Name Role Phone Praful Davenport MD Primary Care Provider [phone] Reason for Referral * Imaging (Routine) - Pending Review Specialty Diagnoses / Procedures Referred By Contkyra t Referred To Contact Radiology Diagnoses Lung nodules Procedures CT Chest wo Contrast Shirlene Jimenez MD [address] [place] [address] [address] Referral ID Status Reason Start Date Expiration Date V isits Requested Visits Authorized [id number] Pending Review 03/21/2024 03/21/2025 1 1 Reason for Visit * Reason Comments Consult lung nodules Encounter Details Date Type Department Care Team (Late st Contact Info) Description 03/21/2024 9:00 AM EST Consult Pulmonology - [place] [address] [facility] [address] [place] [phone] Shirlene Jimenez MD [address] [place] [address] [phone] Lung nodules (Primary Dx); Chronic bilateral pleural effusions Social History Tobacco Use Types Packs/Day Years Used Date Smoking Tobacco: Former Cigarettes 2 51 0 04/19/1965 - 04/19/2016 Smokeless Tobacco: Former Tobacco Cessation:Counseling Given: Not Answered Alcohol Use Standard Drinks/Week Comments No 0 [...] Sign Reading Time Taken Comments Blood Pressure 163/74 03/21/2024 9:28 AM EST Pulse 88 03/21/2024 9:28 AM EST Temperature 36.5 ??C (97.7 ??F) 03/21/2024 9:28 AM ES T Respiratory Rate 16 03/21/2024 9:28 AM EST Oxygen Saturation 96% 03/21/2024 9:28 AM EST Inhaled Oxygen Concentration - - Weight 80.6 kg (177 lb 12.8 oz) 03/21/2024 9:28 AM EST Height 180.3 cm (5' 11 ) 03/21/2024 9:28 AM EST Body Mass Index 24.8 03/21/2024 9:28 AM EST documented in this encounter Functional Status [...] as of this encounter Progress Notes * Shirlene Jimenez MD - 03/21/2024 9:00 AM EST Images from the original note were not included. 03/21/2024 Dmiitri Snow : 1950 PCP: Praful Davenport MD Chief Complaint: lung nodules History of Present Illness: Dimitri Snow is a 74 y.o. male former 50 pack year year smoker quit 4 years ago PMH thyroid cancer treated with resection, HFpEF, DM2, HTN, HLD, hypothyroidism, CKD stage IV, chronic pain on opiates who presents as a referral from the [facility] program for pulmonary nodules. CT chest done on 02/02/24 at [facility] showed the following findin small left upper lobe pulmonary nodules each measuring 6 mm, as well as moderate bilateral pleural effusions, and heterogeneous groundglass opacities bilaterally. CT chest was done in workup of AMS and SOB, ultimatelyfound to have acute decompensated HF. No prior CT chest and no prior lung screening. He is improved from this standpoint with diuresis and actually was admitted later again for vasovagal syncope. Currently not on diuretics. Following with Nephrology and Cardiology outpatient. He reports having lost wt and being tired/fatigued since these hospitalizations and has SOB. Slowlyregaining appetite, strength. No cough, hemoptysis, F/C, night sweats. No family hx cancer, except in his father who had unknown type of cancer. Allergies: Allergies Allergen Reactions Caffeine Ciprofloxacin Tendon rupture Erythromycin Morphine Sulfate Other Reaction(s): OTHER Elevated bp Penicillin Unknown Simvastatin Body Aches Body aches Codeine Anxiety and Other Other Reaction(s): OTHER anxiety Medications: Current Outpatient Medications Medication Instructions alcohol swabs pads, medicated 1 Units by Does not apply route daily. To clean skin before injection amLODIPine (NORVASC) 5 mg, oral, Daily aspirin 81 mg, oral, Daily atorvastatin (LIPITOR) 80 mg, oral, Nightly BD Yana 2nd Gen Pen Needle 32 gauge x needle USE TO ADMINISTER INSULIN FOUR TIMES DAILY blood-glucose meter kit E11.51 to check sugars 3 times a day blood-glucose meter kit Use to test sugars carvediloL (COREG) 25 mg, oral, 2 times daily with meals clopidogreL (PLAVIX) 75 mg, oral, Daily cyclobenzaprine (FLEXERIL) 5 mg tablet Take 1 Tablet by mouth at bedtime as needed for Muscle spasms for up to 14 days. docusate sodium (COLACE) 100 mg, oral, 2 times daily PRN flash glucose scanning reader (virocyt Jesusita 2 [place]) [facility] [place] [place] 1 Device by Does not apply route continuous. flash glucose sensor (FREESTYLE JESUSITA 2 SENSOR [facility]) USE DIRECTED EVERY 14 DAYS furosemide (LASIX) 40 mg, oral, 2 times daily glucose blood test strip E11.51 to check sugars 3 times a day HumaLOG KwikPen Insulin 100 unit/mL injection pen INJECT SUBQ 3 TIMES/DAY BEFORE MEALS PER SS 70-99:5 U, 100-149: 10 U,150-199:13 U, 200-249:16 U, 250-299:19 U, 300-349:22 U, 350-399:25 U,OVER 400 CALL MD hydrALAZINE (APRESOLINE) 100 mg, oral, 3 times daily Lantus Solostar U-100 Insulin 100 unit/mL (3 mL) injection pen INJECT SUBCUTANEOUSLY 85 UNITS DAILY levothyroxine (SYNTHROID, LEVOTHROID) 150 mcg, oral, Every morning before breakfast lidocaine (Lidocaine Viscous) 2 % solution Apply 1 Each topically 4 times daily as needed for Other(rectal pain). APPLY A SMALL AMOUNT TOPICALLY TO RECTUM FOUR TIMES DAILY NEEDED FOR PAIN metoclopramide (REGLAN) 5 mg tablet Take 1 Tablet by mouth 2 times daily as needed (vomiting) for up to 20 days. multivit-min/folic/vit K/lycop (MEN'S MULTIVITAMIN ORAL) oral, Daily ONETOUCH DELICA LANCETS [facility] E11.51 to check sugars 3 times a day oxyCODONE (ROXICODONE) 10 mg, oral, Every 6 hours PRN, Take 1 tablet by mouth 4 times daily as needed for Other (breakthrough pain) for up to 28 days. OxyCONTIN 20 mg, oral, Every 12 hours, Take 20 mg by mouth See Admin Instructions for 28 days. Take1 Tab BID and 2 Tabs at bedtime pantoprazole (PROTONIX) 40 mg, oral, Every morning before breakfast, Do not crush, chew, or split. venlafaxine XR (EFFEXOR-XR) 150 mg, oral, Daily Past Medical History: Diagnosis Date Abdominal aortic aneurysm (AAA) (CMS/HCC) 11/06/2006 DX:Abdominal aortic aneurysm (AAA) (HCC); COMMENT: 2.7.cm 10/2006 Anal fissure 06/26/2006 DX:Anal fissure Anxiety 07/06/2015 DX:Anxiety Avascular necrosis of femoral head (CMS/HCC) 06/06/2010 DX:Avascular necrosis of femoral head (HCC) Back pain with history of spinal surgery Backache 01/27/2006 DX:Backache Carotid stenosis 09/08/2008 DX:Carotid stenosis; COMMENT: 50-69% stenosis on ultrasound of 08/16/2016 Cataract 04/25/2016 DX:Cataract; COMMENT: Mild, bilateral Cervicalgia 06/07/2009 DX:Cervicalgia; COMMENT: 3 surgeries Chronic sinusitis 06/07/2013 DX:Chronic sinusitis Depression 04/16/2018 DX:Depression DM (diabetes mellitus), type 2 with peripheral vascular complications (CMS/HCC) 03/20/2006 DX:DM (diabetes mellitus), type 2 with peripheral vascular complications ([facility]) DM (diabetes mellitus), type 2 with renal complications (CMS/HCC) 03/16/2011 DX:DM (diabetes mellitus), type 2 with renal complications ([facility]) Encounter for long-term current use of medication 02/16/2006 DX:Encounter for long-term current use of medication Erectile dysfunction 11/16/2006 DX:Erectile dysfunction Facet syndrome 05/20/2009 DX:Facet syndrome GERD (gastroesophageal reflux disease) 02/23/2009 DX:GERD (gastroesophageal reflux disease) Hearing loss 02/22/2006 DX:Hearing loss History of venous thrombosis 01/31/2006 DX:History of venous thrombosis Hyperlipidemia 10/26/2009 DX:Hyperlipidemia Hypertension 04/17/2006 DX:Hypertension Kidney failure Microalbuminuria 03/16/2011 DX:Microalbuminuria Peripheral neuropathy 03/16/2011 DX:Peripheral neuropathy; COMMENT: Noted from [facility] Dr. 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 DX:Proctalgia fugax PVD (peripheral vascular disease) (CMS/HCC) 05/06/2010 DX:PVD (peripheral vascular disease) ([facility]) Radiculitis, lumbosacral 06/21/2010 DX:Radiculitis, lumbosacral Spinal stenosis, lumbar 08/04/2009 DX:Spinal stenosis, lumbar Thyroid ca (CMS/HCC) 09/23/2010 DX:Thyroid ca (HCC) Type 2 diabetes mellitus with cataract (CMS/HCC) 08/24/2010 DX:Type 2 diabetes mellitus with cataract (HCC) Type 2 diabetes mellitus with neurologic complication (CMS/HCC) 04/10/2014 DX:Type 2 diabetes mellitus with neurologic complication (HCC) Past Surgical History: Procedure Laterality Date BACK [...] 3 procedures UPPER GASTROINTESTINAL ENDOSCOPY 08/24/2016 PROCEDURE: MO UPPER GI ENDOSCOPY PERFORMED; COMMENT: Muslu[facility]; normal. UPPER GASTROINTESTINAL ENDOSCOPY 05/19/2009 PROCEDURE: MO UPPER GI ENDOSCOPY PERFORMED; COMMENT: Nl esophagus, gastritis- biopsy: inflammation consistent with gastritis or ulcer (HPylori-), normal duodenum-biopsy normal UPPER GASTROINTESTINAL ENDOSCOPY 05/19/2003 PROCEDURE: MO UPPER GI ENDOSCOPY PERFORMED; COMMENT: grade I erosive esophagitis, erosive gastritis, normal duodenum Family History Problem Relation Name Age of Onset Diabetes Mother decesaed Other (Other: cancer) Father 55.00 metastatic cancer of unknown origin Social History Socioeconomic History Marital status: Spouse name: Not on file Number of children: Not on file Years of education: Not on file Highest education level: Not on file Occupational History Not on file Tobacco Use Smoking status: Former Current packs/day: 0.00 Average packs/day: 2.0 packs/day for 51.0 years (102.0 ttl pk-yrs) Types: Cigarettes Start date: 04/19/1965 Quit date: 04/19/2016 Years since quittin.9 Smokeless tobacco: Former Substance and Sexual Activity Alcohol use: No Drug use: Yes Types: Marijuana/Cannabis Sexual activity: Not on file Other Topics Concern Not on file Social History Narrative Not on file Review of Systems Constitutional: Negative. HENT: Negative. Eyes: Negative. Respiratory: See HPI Cardiovascular: Negative. Gastrointestinal: Negative. Endocrine: Negative. Genitourinary: Negative. Musculoskeletal: Negative. Skin: Negative. Breast: negative. Allergic/Immunologic: Negative. Neurological: Negative. Hematological: Negative. Psychiatric/Behavioral: Negative. Vitals: 03/21/24 0928 BP: (!) 163/74 Pulse: 88 Resp: 16 Temp: 36.5 ??C (97.7 ??F) SpO2: 96% Body mass index is 24.8 kg/m??. General: No acute distress HEENT: Pupils equal round to light, mucous membranes moist Neck: no JVD, supple neck Chest: Clear to auscultation, no wheezing or rales, no accessory muscle use CVS: S1-S2, regular rhythm, no murmurs Abdomen: Nondistended, nontender Extremities: Trace LE edema bilaterally, warm, distal pulses present Skin: No rashes or lesions Neuro: Alert and oriented x 3 Lab Results Component Value Date ALBUMIN 2.8 (L) 03/03/2024 ALT 48 02/03/2024 AST 27 02/03/2024 BUN 72 (H) 03/03/2024 CALCIUM 8.8 03/03/2024 CL 100 03/03/2024 CHOL 193 09/21/2023 CO2 30 03/03/2024 CREATININE 2.41 (H) 03/03/2024 HDL 47 09/21/2023 HCT 36.6 (L) 03/03/2024 HGB 11.7 (L) 03/03/2024 HGBA1C 6.3 02/03/2024 LDL 98 09/21/2023 MG 2.5 02/17/2024 PHOS 3.2 03/03/2024 PLT 290 03/03/2024 K 5.1 03/03/2024 NA 138 03/03/2024 TRIG 240 (A) 09/21/2023 WBC 11.9 (H) 03/03/2024 Pulmonary Function Results: Imaging: I personally reviewed imaging and the data revealed: CT chest Jan 2024: Visit Diagnoses: 1. Lung nodules 2. Chronic bilateral pleural effusions Impression: 6 mm nodules KEREN, difficult to visualize, most prominent feature is GGOs and interlobular thickening and bilateral pleural effusions, which was previously on R side On US exam today, trace R effusion not amenable to drainage and no L effusion. From a volume standpoint, currently euvolemic. For small lung nodules, will recommend follow up per Fleischner criteria given pt has no symptoms. Recommendations: -[address] chest with IP follow up -In future counseled on LDCT lung screening program, risks and benefits Today I have spent 65 minutes on this encounter with the following activities: Pre-visit review of chart Pre-visit review of imaging Reviewing patient provided information Personal face to face with patient (including discussion counseling) History and physical examination Medication reconciliation Discussion of laboratory results and pathology Discussion with consulting/referring physician(s) Coordination of care including with office staff and nurse navigation Documentation. Shirlene Jimenez MD [place] [address] Office [phone] documented in this encounter Plan of Treatment Upcoming Encounters Date Type Department Care Team (Late st Contact Info) Description 04/22/2024 2:00 PM EST Office Visit Orthopedic Surgery - [place] [address] [phone] Jordon Bardales DPHomer [address] [address] 04/23/2024 10:30 AM EST Office Visit Adult Medicine [address] [phone] Praful Davenport MD [address] [place] [address] 05/27/2024 1:15 PM EDT Office Visit Adult Medicine [address] [phone] Praful Davenport MD [address] [place] [address] 06/06/2024 12:30 PM EDT Appointment [facility] Endoscopy [address] [place] [phone] Edison Ledezma MD [address] [address] 08/22/2024 1:00 PM EDT Office Visit Adult Medicine [facility] [address] [place] [phone] Praful Davenport MD [address] [place] [address] Scheduled Orders Name Type Priority Associated Diagnoses Orde r Schedule CT Chest wo Contrast Imaging Routine Lung nodules Expected: 06/19/2024, Expires: 03/21/2025 documented as of this encounter Visit Diagnoses Diagnosis Lung nodules- Primary Other diseases of lung, not elsewhere classified Chronic bilateral pleural effusions documented in this encounter Care Teams Burn Table Operator Relationship Specialty Start Date End Date Praful Davenport MD [address] [place] [address] PCP - General Internal Medicine 01/22/24 documented as of this encounter
--- OUTSIDE RECORDS SUMMARY | 2024-04-18 14:24 | XMS_ITS | Encounter Summary ---
Author Organization [facility] Address [address] [place] [address] Care Team Providers Care Onion Topper Name Role Phone Praful Davenport MD Primary Care Provider [phone] Reason for Visit * Reason Onset Date Comments Fitting for DME 03/27/2024 Faxed form from [facility] for diabetic shoes Encounter Details Date Type Department Care Team (Late st Contact Info) Description 03/27/2024 Telephone Adult Medicine [address] [phone] Lizzette Salazar LPN Fitting for DME (Faxed form from [facility] for diabetic shoes) Social History Tobacco Use Types Packs/Day Years [...] as of this encounter Progress Notes * Lizzette Salazar LPN - 03/31/2024 1:10 PM EST Form signed and faxed to [facility] @ [phone] * Lizzette Salazar LPN - 03/27/2024 1:41 PM EST Diabetic shoes Form to Dr Davenport to sign documented in this encounter Plan of Treatment Upcoming Encounters Date Type Department Care Team (Late st Contact Info) Description 04/22/2024 2:00 PM EST Office Visit Orthopedic Surgery - [place] [address] [phone] Jordon Bardales, DPM [address] [address] 04/23/2024 10:30 AM EST Office Visit Adult Medicine [address] [phone] Praful Davenport MD [address] [place] [address] 05/27/2024 1:15 PM EDT Office Visit [address] [phone] Praful Davenport MD [address] [place] [address] 06/06/2024 12:30 PM EDT Appointment [facility] Endoscopy [address] [place] [address] Edison Ledezma MD [address] [address] 08/22/2024 1:00 PM EDT Office Visit Adult Medicine [facility] [address] [place] [address] Praful Davenport MD [address] [place] [address] documented as of this encounter Visit Diagnoses Not on filedocumented in this encounter Care Teams Onion Topper Relationship Specialty Start Date End Date Praful Davenport MD [address] [place] [address] PCP - General Internal Medicine 01/22/24 documented as of this encounter
--- OUTSIDE RECORDS SUMMARY | 2024-04-18 14:24 | XMS_ITS | Encounter Summary ---
Author Organization [facility] Address [address] [address] Phone Care Team Providers Care Customs Director Name Role Phone Praful Davenport MD Primary Care Provider [phone] Encounter Details Date Type Department Care Team (Late Contact Info) Description 03/20/2024 Office Communication [facility] [address] [phone] Jimena Rust ARNP [address] [phone] Social History Tobacco Use Types Packs/Day Years Used Date Smoking Tobacco: Former Cigarettes 0 04/19/1965 - 04/19/2016 Passive Smoke Exposure: Never Smokeless Tobacco: Former Alcohol Use Standard Drinks/Week Comments Not Currently 0 (1 standard drink = 0.6 oz pur e alcohol) Quit 1977 Sex and Gender Information Value Date Recorded Sex Assigned at Not on file Legal Sex Male 5:20 PM EST Gender Identity Not on file Sexual Orientation Not on file documented as of this encounter Miscellaneous Notes * Telephone Encounter - Jimena Santos - 03/21/2024 10:25 AM EST Pt is aware message below. documented in this encounter Plan of Treatment Upcoming Encounters Date Type Department Care Team (Late st Contact Info) Description 08/05/2024 1:15 PM EDT Office Visit [facility] [address] [place] [phone] Jimena Rust ARNP [address] [phone] documented as of this encounter Visit Diagnoses Not on filedocumented in this encounter Care Teams Customs Director Relationship Specialty Start Date End Date Praful Davenport MD [address] [place] [address] PCP - General Internal Medicine 02/27/24 documented as of this encounter
--- OUTSIDE RECORDS SUMMARY | 2024-04-18 14:24 | XMS_ITS | Encounter Summary ---
Author Organization [facility] Address [address] [place] [address] Care Team Providers Care Tire Layer Name Role Phone Praful Davenport MD Primary Care Provider [phone] Encounter Details Date Type Department Care Team ([facility] Contact Info) Description 04/11/2024 Telephone Gastroenterology - [place] [address] [facility] 175 [facility] [address] [place] [address] Crista Peace NP 175 [facility] [address] [place], [place] [phone] Social History Tobacco Use Types Packs/Day Years [...] as of this encounter Progress Notes * Gabbie Kc MA - 04/14/2024 10:52 AM EST Patient stated previous provider who did his last colon is now retired. Booked with 299. * Crista Peace NP - 04/11/2024 8:55 PM EST Please schedule diagnostic EGD for dysphagia and screening colonoscopy next available. Thank you. documented in this encounter Plan of Treatment Upcoming Encounters Date Type Department Care Team (Late st Contact Info) Description 04/22/2024 2:00 PM EST Office Visit Orthopedic Surgery - [place] [address] [phone] Jordon Bardales, DPM [address] [address] 04/23/2024 10:30 AM EST Office Visit Adult Medicine [address] [phone] Praful Davenport MD [address] [place] [address] 05/27/2024 1:15 PM EDT Office Visit [address] [phone] Praful Davenport MD [address] [place] [address] 06/06/2024 12:30 PM EDT Appointment [facility] Endoscopy [address] [place] [phone] Edison eLdezma MD [address] [address] 08/22/2024 1:00 PM EDT Office Visit Adult Medicine [facility] [address] [place] [phone] Praful Davenport MD [address] [place] [address] documented as of this encounter Visit Diagnoses Not on filedocumented in this encounter Care Teams Tire Layer Relationship Specialty Start Date End Date Praful Davenport MD [address] [place] [address] PCP - General Internal Medicine 01/22/24 documented as of this encounter
--- OUTSIDE RECORDS SUMMARY | 2024-04-18 14:24 | XMS_ITS | Clinical Summary ---
Author Organization [facility] Address [address] [phone] Phone Care Team Providers Care Experimental Display Builder Name Role Phone Praful Davenport MD Primary Care Provider [phone] Allergies Active Allergy Reactions Criticality Noted Date Comments Acetaminophen 10/31/2021 Other reaction(s): pain incresed Caffeine 08/03/2021 Ciprofloxacin 08/03/2021 Tendon rupture Codeine Anxiety,Other (see comments) Low 04/23/2009 anxiety Erythromycin 10/31/2021 Morphine Other (see comments) 07/19/2009 Elevated BP Elevated bp Simvastatin 08/03/2021 Body aches Medications atorvastatin (LIPITOR) 80 MG tablet Take 80 mg by mouth 1 (one) time each day Active pantoprazole (PROTONIX) 20 MG EC tablet Take 20 mg by mouth 1 (one) time each day before breakfast Do not crush, chew, or split. Active oxyCODONE (OxyCONTIN) 20 MG 12 hr abuse-deterrent tablet Take 20 mg by mouth every 12 (twelve) hours Do not crush, chew, or split. Active aspirin (ST FARNAZ) 81 MG EC tablet Take 81 mg by mouth 1 (one) time each day Active Multiple Vitamins-Minerals (multivitamin with minerals) tablet Take 1 tablet by mouth 1 (one) time each day Active Lantus SoloStar 100 UNIT/ML injection 10/15/19 22 Active HumaLOG KWIKPEN 100 UNIT/ML solution pen-injector 10/15/19 22 Active Lidocaine HCl (Lidocaine Viscous HCl) 2 % solution APPLY A SMALL AMOUNT TOPICALLY TO RECTUM FOUR TIMES DAILY NEEDED FOR PAIN 12/31/19 22 Active tamsulosin (FLOMAX) 0.4 MG 24 hr capsule Take 0.4 mg by mouth 1 (one) time each day 11/13/19 22 Active clopidogrel (PLAVIX) 75 MG tablet Take 75 mg by mouth 1 (one) time each day 01/28/20 22 Active levothyroxine (SYNTHROID, LEVOTHROID) 150 MCG tablet Take 1 tablet by mouth 1 (one) time each day 1.5 tabs on 08/02/19 23 Active hydrOXYzine (ATARAX) 25 MG tablet if needed 07/18/19 23 Active docusate sodium (COLACE) 100 MG capsule Take 100 mg by mouth in the morning and 100 mg in the evening. 08/19/19 23 Active oxyCODONE (ROXICODONE) 10 MG immediate release tablet TAKE 1 TABLET BY MOUTH FOUR TIMES DAILY NEEDED 11/10/19 23 Active Lidocaine, Anorectal, 5 % cream APPLY TOPPICALLY FOUR TIMES DAILY NEEDED FOR ANAL PAIN 12/30/19 23 Active carvedilol (Coreg) 25 MG tablet Take 1 tablet (25 mg total) by mouth in the morning and 1 tablet (25 mg total) in the evening. Take with meals. 180 tablet 3 10/04/19 24 Active furosemide (LASIX) 40 MG tablet Take 40 mg by mouth in the morning and 40 mg in the evening. Active calcitriol (Rocaltrol) 0.25 MCG capsuleIndications:Sec ondary hyperparathyroidism (HCC) Take 1 capsule (0.25 mcg total) by mouth 1 (one) time each day 30 capsule 5 03/20/19 25 025 Active venlafaxine 150 MG 24 hr tablet Take 150 mg by mouth in the morning. 02/23/20 24 Active Active Problems Problem Noted Date Diagnosed Date Secondary hyperparathyroidism of renal origin Persistent proteinuria 02/27/2024 Stage 3 chronic kidney disease, not otherwise sp ecified 02/27/2024 Acute nontraumatic kidney injury, not otherwise specified 02/27/2024 Hyperkalemia 02/27/2024 Benign essential hypertension 08/28/2022 Overview (10/02/2022): Last Assessment & Plan: Elevated today but recheck was normal Intermittent claudication 08/28/2022 Overview (10/02/2022): Last Assessment & Plan: As mentioned we are going to intervene on the left superficial femoral artery more than likely with a shockwave balloon Pure hypercholesterolemia 08/28/2022 Dyspnea on exertion 04/18/2022 Overview (10/02/2022): Last Assessment & Plan: Most likely multifactorial but given his recent diagnosis of COPD we will see her again reevaluating next visit to see if he needs further work-up. Mild chronic obstructive pulmonary disease 04/18 Overview (10/02/2022): Last Assessment & Plan: I explained the patient the pathophysiology of COPD, implications and management and diagnosis. The plan is the followin. Anoro/Ellipta 1 puff once a day 2. Continue with albuterol as needed 3. Reevaluation in 3 months. No need for pulmonary rehab at this point. Multiple nodules of lung 04/18/2022 Overview (10/02/2022): Last Assessment & Plan: Subcentimeter pulmonary nodules. Continue in the lung cancer screening program. Hypothyroidism 06/09/2020 Chronic sinusitis 06/07/2013 Malignant neoplasm of thyroid gland 09/23/2010 Orthostatic hypotension 07/08/2010 Hyperlipidemia 10/26/2009 Gastroesophageal reflux disease 02/23/2009 Hypertension 04/17/2006 Type 2 diabetes mellitus 03/20/2006 Encounters Date Type Department Care Team Description 04/07/2024 4:30 PM EST Office Visit [facility] [address] [phone] Mihir Rabago MD Stage 3 chronic kidney disease, not otherwise specified (HCC) (Primary Dx); Hypertension; Secondary hyperparathyroidism of renal origin (HCC); Persistent proteinuria; Heart failure with normal ejection fraction (HCC) 04/07/2024 Orders Only [facility] [address] [phone] Hope Garcia MD 03/20/2024 Office Communication [facility] [address] [phone] Jimena Rust ARNP 03/04/2024 Orders Only [facility] [address] [phone] Hope Garcia MD 03/04/2024 Documentation Only [facility] [address] [phone] Mariely Ponce MA 03/03/2024 Orders Only [facility] [address] [phone] Jimena Rust ARNP 02/27/2024 4:00 PM EST Office [facility] [address] [phone] [facility] Acute nontraumatic kidney injury, not otherwise specified (HCC) (Primary Dx); Stage 3 chronic kidney disease, not otherwise specified (HCC); Hypertension; Persistent proteinuria; Hyperkalemia; Secondary hyperparathyroidism of renal origin (HCC) from Last 3 Months Immunizations Name Administration Dates Next Due Influenza (IM) Preservative Free 12/06/2007 Influenza, Unspecified 12/16/2012,2011,12/29/2009,02/23/2009 ,02/16/2006 Moderna SARS-COV-2 08/12/2020,07/15/2020 Pneumococcal Polysaccharide 02/26/2015, 9 Tdap 03/19/2003 Family History Medical History Relation Comments Cancer Father Diabetes Mother Relation Status Comments Father metastatic cance r of unkown origin Mother Social History Tobacco Use Types Packs/Day Years Used Date Smoking Tobacco: Former Cigarettes 0 04/19/1965 - 04/19/2016 Passive Smoke Exposure: Never Smokeless Tobacco: Former Tobacco Cessation:Counseling Given: Not Answered Alcohol Use Standard Drinks/Week Comments Not Currently 0 (1 standard drink = 0.6 oz pur e alcohol) Quit 1976 Sex and Gender Information Value Date Recorded Sex Assigned at Not on file Legal Sex Male 5:20 PM EST Gender Identity Not on file Sexual Orientation Not on file Last Filed Vital Signs Vital Sign Reading Time Taken Comments Blood Pressure 134/58 04/07/2024 4:24 PM EST Pulse 60 04/07/2024 4:24 PM EST Temperature - - Respiratory Rate - - Oxygen Saturation 94% 01/01/2023 2:44 PM EDT Inhaled Oxygen Concentration - - Weight 78 kg (172 lb) 04/07/2024 4:24 PM EST Height 181.6 cm (5' 11.5 ) 11/15/2023 11:06 AM E DT Body Mass Index 23.65 11/15/2023 11:06 AM EDT Plan of Treatment Upcoming Encounters Date Type Department Care Team (Late st Contact Info) Description 08/05/2024 1:15 PM EDT Office Visit [facility] [address] [phone] Jimena Rust ARNP [address] [phone] Health Maintenance Due Date Last Done Comments Colorectal Cancer Screening: Annual FOBT 1998 Colorectal Cancer Screening: Colonoscopy 1998 Colorectal Cancer Screening: Sigmoidoscopy 1998 Pneumococcal Vaccine: 65+ Years (3 of 3 - PCV) 02/27/2016 02/26/2015, 10/07/2008 Diabetes: Ophthalmology Exam 08/04/2021 Diabetes: Pedal Pulse Checked 08/04/2021 Diabetes: Sensory Foot Exam 08/04/2021 Diabetes: Visual Foot Exam 08/04/2021 Influenza Vaccine (#1) 2023 3, 12/04/2011, 12/29/2009, Additional history exists Diabetes: Hemoglobin A1C 05/05/20242 024, 09/21/2023, 09/07/2023, Additional history exists Hepatitis B Vaccine Aged Out No longe r eligible based on patient's age to complete this topic Procedures Procedure Name Priority Date/Time Associated Diagnosis Comments EXT RESULT ENTRY Routine 03/04/2024 8:59 AM EST EXT RESULT ENTRY Routine 03/04/2024 8:58 AM EST EXT RESULT ENTRY Routine 03/04/2024 8:58 AM EST EXT RESULT ENTRY Routine 03/04/2024 8:58 AM EST EXT RESULT ENTRY Routine 03/04/2024 8:57 AM EST PROTEIN, URINE, RANDOM Routine 03/03/2024 4:40 PM EST URINE ALBUMIN / CREATININE RATIO Routine 03/03/2024 4:40 PM EST Acute nontraumatic kidney injury, not otherwise specified (HCC) Stage 3 chronic kidney disease, not otherwise specified (HCC) Hypertension Persistent proteinuria CBC Routine 03/03/2024 2:34 PM EST Acute nontraumatic kidney injury, not otherwise specified (HCC) Stage 3 chronic kidney disease, not otherwise specified (HCC) Hypertension Persistent proteinuria PTH, INTACT Routine 03/03/2024 2:34 PM EST Acute nontraumatic kidney injury, not otherwise specified (HCC) Stage 3 chronic kidney disease, not otherwise specified (HCC) Hypertension Persistent proteinuria RENAL FUNCTION PANEL Routine 03/03/2024 2:34 PM EST Acute nontraumatic kidney injury, not otherwise specified (HCC) Stage 3 chronic kidney disease, not otherwise specified (HCC) Hypertension Persistent proteinuria EXT RESULT ENTRY Routine 03/03/2024 PTH, INTACT Routine 01/21/2024 2:05 PM EST VITAMIN D 25 HYDROXY Routine 01/21/2024 2:05 PM EST RP10+2AC (HC) Routine 01/21/2024 2:05 PM EST from Last 3 Months Results * EXT RESULT ENTRY (03/04/2024 8:59 AM EST) Only the most recent of6 resultswithin the time period is included. us Historical Provider LAB BLOOD ORDERABLES Katelyn l Result * (ABNORMAL) Urine Albumin / Creatinine Ratio (03/03/2024 4:40 PM EST) Creatinine, Urine 52.0 mg/dL [facility] Microalbumin Urine Random 262.0(H) 0.0 - 29.0 mg/L [facility] Microalbumin/Cre atinine Ratio 504(H) <30 mg/g creat [facility] Urine (Urine, Clean Catch) 03/03/2024 4:40 PM EST 03/03/2024 6:01 PM EST [facility] URINE ORDERABLES Final Result Performing Organization Address City/[facility]/ZIP Co de Phone Number [facility] [address] [place] [address] * Protein, urine, random (03/03/2024 4:40 PM EST) Pathologist [facility] Protein, Ur 60 mg/dL [facility] 03/03/2024 4:40 PM EST 03/03/2024 6:01 PM EST [facility] URINE ORDERABLES Final Result Performing Organization Address City/[facility]/ZIP Co de Phone Number [facility] [address] [place] [address] * (ABNORMAL) CBC (03/03/2024 2:34 PM EST) WBC 11.9(H) 4.8 - 10.8 K/[facility] RBC 3.90(L) 4.50 - 5.50 M/[facility] Hgb 11.7(L) 13.5 - 17.5 g/dL [facility] Hematocrit 36.6(L) 42.0 - 54.0 % [facility] MCV 95.1 79.0 - 98.[address] [facility] MCH 30.4 27.0 - 32.[address] [facility] MCHC 32.0 32.0 - 37.0 g/dL [facility] RDW 14.6 11.0 - 15.0 % [facility] Platelets 290 130 - 400 K/mcL [facility] MPV 10.7 7.0 - 11.[address] [facility] nRBC Count 0.0 <1.0 % [facility] NRBC Absolute 0.00 <0.10 K/mcL [facility] Blood (Blood, Venous) 03/03/2024 2:34 PM EST 03/03/2024 4:27 PM EST [facility] BLOOD ORDERABLES Final Result Performing Organization Address [facility]/ZIP Co de Phone Number [facility] [address] [place] [address] * (ABNORMAL) PTH, intact (03/03/2024 2:34 PM EST) Only the most recent of2 resultswithin the time period is included. Pathologist [facility] PTH 300.2(H) 18.5 - 88.0 pcg/mL [facility] Blood (Blood, Venous) 03/03/2024 2:34 PM EST 03/03/2024 4:24 PM EST [facility] BLOOD ORDERABLES Final Result Performing Organization Address [facility]/ZIP Co de Phone Number [facility] [address] [place] [address] * (ABNORMAL) Renal function panel (03/03/2024 2:34 PM EST) Sodium 138 133 - 145 mmol/L [facility] Potassium 5.1 3.5 - 5.5 mmol/L [facility] Chloride 100 96 - 110 mmol/L [facility] Bicarbonate (CO2) 30 21 - 32 mmol/L [facility] Anion Gap 8 3 - 11 [facility] Glucose 232(H) 70 - 100 mg/dL [facility] BUN 72(H) 5 - 25 mg/dL [facility] Creatinine Serum 2.41(H) 0.70 - 1.30 mg/dL [facility] eGFR 27(L) >=60 mL/min/1. 73m2 [facility] Comment:Calculation based on the?Chronic Kidney Disease Epidemiology Collaboration (CKD-EPI) equation refit?without adjustment for race. BUN/Creatinine Ratio 29.9 [facility] Albumin 2.8(L) 3.2 - 5.0 g/dL [facility] Calcium 8.8 8.5 - 10.5 mg/dL [facility] Phosphorus 3.2 2.5 - 4.5 mg/dL [facility] Blood (Blood, Venous) 03/03/2024 2:34 PM EST 03/03/2024 4:24 PM EST Jimena Rust [facility] BLOOD ORDERABLES Final Result [facility] [address] [place] [address] * (ABNORMAL) RP10+2AC (01/21/2024 2:05 PM EST) Glucose 142(H) 70 - 99 mg/dL [facility] BUN 33(H) 8 - 27 mg/dL [facility] Creatinine 1.89(H) 0.76 - 1.27 mg/dL [facility] eGFR CKD-EPI CR 2020 37(L) >59 mL/min/1.7 3 [facility] BUN/Creatinine Ratio 17 10 - 24 [facility] Sodium 136 134 - 144 mmol/L [facility] Potassium 5.4(H) 3.5 - 5.2 mmol/L [facility] Chloride 96 96 - 106 mmol/L [facility] Bicarbonate (CO2) 24 20 - 29 mmol/L [facility] Anion Gap 16.0 10.0 - 18.0 mmol/L [facility] Calcium 9.1 8.6 - 10.2 mg/dL [facility] Total Protein 6.3 6.0 - 8.5 g/dL [facility] Albumin 3.9 3.8 - 4.8 g/dL [facility] Globulin 2.4 1.5 - 4.5 g/dL [facility] Uric Acid 7.4 3.8 - 8.4 mg/dL [facility] Comment:Therapeutic target f or gout patients: <6.0 Phosphorus 3.2 2.8 - 4.1 mg/dL [facility] 01/21/2024 2:05 PM EST 01/21/2024 Mihir Rabago MD LAB [id number] ICITED RESULTS Final Result [facility] [address] [place] [phone] * Vitamin D 25 Hydroxy (01/21/2024 2:05 PM EST) Vitamin D, 25-OH, Total 34.2 30.0 - 100.0 ng/mL [facility] Comment: Vitamin D deficiency has been defined by the [place] of [employer] and an Endocrine Society practice guideline as a level of serum 25-OH vitamin D less than 20 ng/mL (1,2). The Endocrine Society went on to further define vitamin D insufficiency as a level between 21 and 29 ng/mL (2). 1. IOM ([place] of Medicine). 2010. Dietary reference ?? intakes for calcium and D. [place]: The ?? National [employer] Press. 2. Nneka MF, Omid LYONS, Yue MCKINNEY, et al. ?? Evaluation, treatment, and prevention of vitamin D ?? deficiency: an Endocrine Society clinical practice ?? guideline. JCEM. 2010; 96(7):1911-30. 01/21/2024 2:05 PM EST 01/21/2024 Mihir Rabago MD LAB BLOOD ORDERABLES Final Resul t [facility] [address] [place] [phone] from Last 3 Months Insurance [facility] Care Teams Experimental Display Builder Relationship Specialty Start Date End Date Praful Davenport MD [address] [place] [address] PCP - General Internal Medicine 02/27/24
--- OUTSIDE RECORDS SUMMARY | 2024-04-18 14:24 | XMS_ITS | Clinical Summary ---
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 Active docusate sodium (COLACE) 100 mg capsule Take 1 capsule (100 mg total) by mouth 2 (two) times a day if needed for constipation. Active pantoprazole (PROTONIX) 40 mg EC tablet Take 1 tablet (40 mg total) by mouth 1 (one) time each day before breakfast. Do not crush, chew, or split. Active aspirin 81 mg EC tablet Take 1 tablet (81 mg total) by mouth daily. 11/01/19 22 Active venlafaxine XR (EFFEXOR-XR) 150 mg 24 hr capsule Take 1 capsule (150 mg total) by mouth 1 (one) time each day. 09/14/19 16 Active glucose blood test strip E11.51 to check sugars 3 times a day 11/15/19 24 Active cyclobenzaprine (FLEXERIL) 5 mg tablet Take 1 tablet (5 mg total) by mouth at bedtime. 10/01/19 Active metoclopramide (REGLAN) 5 mg tablet Take 1 Tablet by mouth 2 times daily as needed (vomiting) for up to 20 days. 09/17/19 Active flash glucose sensor (FREESTYLE JESUSITA 2 [facility] [place] USE DIRECTED EVERY 14 DAYS 04/16/19 Active ONETOUCH DELICA LANCETS MISC E11.51 to check sugars 3 times a day 03/14/20 Active blood-glucose meter kit E11.51 to check sugars 3 times a day 01/19/20 Active flash glucose scanning reader (FreeStyle Jesusita 2 [place]) [facility] [place] 1 Device by Does not apply route continuous. 04/19/19 Active blood-glucose meter kit Use to test sugars 05/08/19 Active alcohol swabs pads, medicated 1 Units by Does not apply route daily. To clean skin before injection 04/16/19 Active multivit-min/fol ic/vit K/lycop (MEN'S MULTIVITAMIN ORAL) Take by mouth 1 (one) time each day. Active amLODIPine (NORVASC) 5 mg tablet Take 1 tablet (5 mg total) by mouth 1 (one) time each day. 02/13/20 Active carvediloL (COREG) 25 mg tablet Take 1 tablet (25 mg total) by mouth 2 (two) times a day with meals. 02/12/20 Active hydrALAZINE (APRESOLINE) 100 mg tablet Take 1 tablet (100 mg total) by mouth 3 (three) times a day. 02/12/20 Active levothyroxine (SYNTHROID, LEVOTHROID) 150 mcg tablet Take 1 tablet (150 mcg total) by mouth 1 (one) time each day before breakfast. 02/13/20 Active oxyCODONE (ROXICODONE) 10 mg immediate release tablet Take 1 tablet (10 mg total) by mouth every 6 (six) hours if needed for severe pain. Take 1 tablet by mouth 4 times daily as needed for Other (breakthrough pain) for up to 28 days. Max Daily Amount: 40 mg 10 tablet 02/12/20 Active OxyCONTIN 20 mg 12 hr abuse-deterrent tablet Take 1 tablet (20 mg total) by mouth every 12 (twelve) hours. Take 20 mg by mouth See Admin Instructions for 28 days. Take 1 Tab BID and 2 Tabs at bedtime Max Daily Amount: 40 mg 10 tablet 02/12/20 24 Active furosemide (LASIX) 40 mg tablet Take 1 tablet (40 mg total) by mouth 2 (two) times a day. 02/13/20 24 Active HumaLOG KwikPen Insulin 100 unit/mL injection pen INJECT SUBQ 3 TIMES/DAY BEFORE MEALS PER SS 70-99:5 U, 100-149: 10 U,150-199:13 U, 200-249:16 U, 250-299:19 U, 300-349:22 U, 350-399:25 U,OVER 400 CALL MD 75 mL 1 02/19/20 24 Active Lantus Solostar U-100 Insulin 100 unit/mL (3 mL) injection pen INJECT SUBCUTANEOUSLY 85 UNITS DAILY 90 mL 02/22/20 24 Active BD Yana 2nd Gen Pen Needle 32 gauge x 5/32 needle USE TO ADMINISTER INSULIN FOUR TIMES DAILY 200 each 1 03/05/20 24 Active hydrOXYzine HCL (ATARAX) 25 mg tablet TAKE 1 TABLET BY MOUTH EVERY 8 HOURS NEEDED FOR ITCHING 270 tablet 1 03/25/19 25 Active atorvastatin (LIPITOR) 80 mg tablet TAKE 1 TABLET BY MOUTH AT BEDTIME 90 tablet 1 03/25/19 25 Active lidocaine (Lidocaine Viscous) 2 % solution Apply 1 Each topically 4 times daily as needed for Other (rectal pain). APPLY A SMALL AMOUNT TOPICALLY TO RECTUM FOUR TIMES DAILY NEEDED FOR PAIN 100 mL 5 04/08/19 25 Active hydrocortisone (ANUSOL-HC) 2.5 % rectal cream Insert into the rectum 4 (four) times a day if needed for hemorrhoids (rectal discomfort). Apply to affected areas 30 g 04/08/19 25 026 Active polyethylene glycol (Golytely) 236-22.74-6.74 -5.86 gram solution Take 4L by mouth once for one dose. May substitue any PEG. Starting at 6PM the night before your procedure drink 1 8oz glasses at your own pace until you complete half of the gallon. Finish 2nd half of the gallon 5 hours before your procedure. 4000 mL 04/14/19 25 Active bisacodyL (DULCOLAX) 5 mg EC tablet Take 2 tablets by mouth right before beginning bowel prep. See instructions provided by the office 2 tablet 04/14/19 25 Active atorvastatin (LIPITOR) 80 mg tablet Take 1 tablet (80 mg total) by mouth at bedtime. 025 Discontinued lidocaine (Lidocaine Viscous) 2 % solution Apply 1 Each topically 4 times daily as needed for Other (rectal pain). APPLY A SMALL AMOUNT TOPICALLY TO RECTUM FOUR TIMES DAILY NEEDED FOR PAIN 04/13/19 24 025 Discontinued(Re order) Active Problems Problem Noted Date Diagnosed Date Known medical problems 01/29/2024 Overview (01/29/2024): LONG-TERM (CURRENT) USE OF NARCOTICS Acute kidney injury superimposed on CKD 01/23/20 Adrenal hematoma 01/23/2024 CKD (chronic kidney disease) stage 4, GFR 15-29 ml/min 09/17/2023 Closed compression fracture of thoracolumbar yuri tebra 09/17/2023 Dyspnea on exertion 04/18/2022 Overview (01/29/2024): Last Assessment & Plan: Most likely multifactorial but given his recent diagnosis of COPD we will see her again reevaluating next visit to see if he needs further work-up. Pulmonary nodules 04/18/2022 Overview (01/29/2024): Last Assessment & Plan: Subcentimeter pulmonary nodules. Continue in the lung cancer screening program. Stage 1 mild COPD by GOLD classification 023 Overview (01/29/2024): Last Assessment & Plan: I explained the patient the pathophysiology of COPD, implications and management and diagnosis. The plan is the followin. Anoro/Ellipta 1 puff once a day 2. Continue with albuterol as needed 3. Reevaluation in 3 months. No need for pulmonary rehab at this point. Chronic rectal pain 06/09/2020 Hypothyroidism 06/09/2020 COVID-19 04/05/2020 Overview (01/29/2024): DX 03/24/20. Adjustment disorder with anxious mood 10/08/2018 Prostatitis, chronic 07/08/2018 Depression 04/16/2018 Postsurgical hypothyroidism 02/20/2018 Overview (01/29/2024): Total thyroidectomy for invasive papillary carcinoma. He was hospitalized at [facility] on 12/21/2010. He was ablated with 79.4 mCi of iodine-131. Last Assessment & Plan: Invasive papillary carcinoma. 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 Munoz 10/18/2010 Type 2 diabetes mellitus with cataract 1 Radiculitis, lumbosacral 06/21/2010 Avascular necrosis of femoral head 06/06/2010 PVD (peripheral vascular disease) 05/06/2010 Overview (01/29/2024): Follows with Cardiology (bailee) 6 mth basis. Hyperlipidemia 10/26/2009 Spinal stenosis, lumbar 08/04/2009 Cervicalgia 06/07/2009 Overview (01/29/2024): 3 surgeries Facet syndrome 05/20/2009 Gastroesophageal reflux disease 02/23/2009 Carotid stenosis 09/08/2008 Overview (01/29/2024): 50-69% stenosis on ultrasound of 08/16/2016 Erectile dysfunction 11/16/2006 Abdominal aortic aneurysm (AAA) 11/06/2006 Overview (01/29/2024): 2.7.cm 10/2006 Anal fissure 06/26/2006 Hypertension 04/17/2006 DM (diabetes mellitus), type 2 with peripheral vascular complications 03/20/2006 Hearing loss 02/22/2006 Resolved Problems Problem Noted Date Diagnosed Date Resolved Date Syncope 02/16/2024 02/17/2024 Pain and swelling of lower extremity 02/01/2024 02/12/2024 Acute metabolic encephalopathy 01/23/2024 02/12/2024 Hyperkalemia 01/23/2024 02/12/2024 Hypertensive encephalopathy 2024 02/12/2024 Drug-induced constipation 09/17/2023 Encounters Date Type Department Care Team Description 04/11/2024 2:00 PM EST Consult Gastroenterology [facility] 175 [facility] [address] [phone] Crista Peace NP Esophageal dysphagia (Primary Dx); Proctalgia fugax; Screening for colorectal cancer; Gastroesophageal reflux disease without esophagitis; Drug-induced constipation 04/11/2024 Telephone [facility] 175 [facility] [address] [phone] Crista Peace NP 03/31/2024 Telephone Adult Medicine [address] [phone] Praful Davenport MD Hospital Follow-up 03/27/2024 Telephone Adult Medicine [address] [phone] Lizzette Salazar LPN Fitting for DME (Faxed form from [facility] for diabetic shoes) 03/21/2024 9:00 AM EST Consult Pulmonology [facility] [address] [phone] Shirlene Jimenez MD Lung nodules (Primary Dx); Chronic bilateral pleural effusions 03/11/2024 Telephone Pulmonology [facility] [address] [phone] Meaghan Hercules MA 03/03/2024 1:15 PM EST Office Visit Adult Medicine [address] [phone] Praful Davenport MD Rectal pain (Primary Dx); Pseudogout; Adrenal hematoma, subsequent encounter; Chronic kidney disease (CKD), stage IV (severe) ([facility]); Type 2 diabetes mellitus with stage 4 chronic kidney disease, with long-term current use of insulin ([facility]); Primary hypertension; Chronic heart failure with preserved ejection fraction ([facility]) 03/03/[address] [phone] Praful Davenport MD 02/16/2024 5:05 PM EST - 02/17/2024 10:45 AM EST Emergency [facility] Emergency [address] [place] [phone] Min Alexis MD Jones, Christopher, MD Alam, Aroosa, MD Syncope, unspecified syncope type (Primary Dx); Acute cystitis without hematuria Discharge Disposition: Detention Facility 2024 8:48 AM EST - 02/12/2024 2:48 PM EST Hospital Encounter [facility] [address] [place] [phone] Vinh Anderson MD Levrault, Richard, DO Loiacono, Laurie, MD Bonacum, Julia T, MD Flores, Carlos M, MD Zipagan, James T, MD Mohani, Priya, MD Kokosadze, Estate, MD Resistant hypertension (Primary Dx); Hypertensive encephalopathy; Delirium; Sepsis with encephalopathy and septic shock, due to unspecified organism ([facility]); Type 2 diabetes mellitus with cataract ([facility]); Pain and swelling of left lower extremity; Pain and swelling of lower extremity, unspecified laterality; Elevated troponin; Shortness of breath; PVD (peripheral vascular disease) ([facility]) Discharge Disposition: Detention Facility from Last 3 Months Immunizations Name Administration Dates Next Due Influenza trivalent, 0.5mL, preservative free (Fluarix; FluLaval; Fluzone) ages 6mo and older (Afluria) 3 years and older 12/06/2007 Influenza trivalent, with pr eservative (Fluzone; Afluria) 6mo and older 12/16/2012,12/04/2011,12/29/2009,02/23,02/16/2006 Pneumococcal polysaccharide 23 valent (Pneumovax 23) 2yo and older 02/26/2015,10/07/2008 Tdap Tetanus diptheria acell ular pertussis (Boostrix; Adacel) 7yo and older 03/19/2003 Surgical History Surgery Date Site/Laterality Comments BACK SURGERY PROCEDURE: HISTORICAL BACK SURGERY; COMMENT: 4 back operations HAND SURGERY PROCEDURE: HISTORICAL HAND SURGERY; COMMENT: bilateral CTS HERNIA REPAIR PROCEDURE: HISTORICAL HERNIA REPAIR/ING NECK SURGERY PROCEDURE: HISTORICAL NECK SURGERY; COMMENT: 3 procedures COLONOSCOPY 01/20/2004 PROCEDURE: HISTORICAL COLONOSCOPY; COMMENT: Up to cecum, regular preparation, sigmoid diverticulosis (Dr. Gimenez) COLONOSCOPY 2012 PROCEDURE: HISTORICAL COLONOSCOPY; COMMENT: Minimal diverticulosis, sigmoid colon. UPPER GASTROINTESTINAL ENDOSCOPY 08/24/2016 PROCEDURE: DE UPPER GI ENDOSCOPY PERFORMED; COMMENT: Muslu[facility]; normal. UPPER GASTROINTESTINAL ENDOSCOPY 05/19/2009 PROCEDURE: DE UPPER GI ENDOSCOPY PERFORMED; COMMENT: Nl esophagus, gastritis-biopsy: inflammation consistent with gastritis or ulcer (HPylori-), normal duodenum-biopsy normal UPPER GASTROINTESTINAL ENDOSCOPY 05/19/2003 PROCEDURE: DE UPPER GI ENDOSCOPY PERFORMED; COMMENT: grade I erosive esophagitis, erosive gastritis, normal duodenum FLEXIBLE SIGMOIDOSCOPY 05/03/2018 PROCEDURE: HISTORICAL FLEXIBLE SIGMOIDOSCOPY; COMMENT: negative to 20 cm. Medical History Medical History Date Comments Abdominal aortic aneurysm (A AA) ([facility]) 11/06/2006 DX:Abdominal aortic aneurysm (AAA) ([facility]); COMMENT: 2.7.cm 10/2006 Anal fissure 06/26/2006 DX:Anal fissure Anxiety 07/06/2015 DX:Anxiety Avascular necrosis of femora l head ([facility]) 06/06/2010 DX:Avascular necrosis of fem oral head ([facility]) Carotid stenosis 09/08/2008 DX:Carotid sten osis; COMMENT: 50-69% stenosis on ultrasound of 08/16/2016 Cataract 04/25/2016 DX:Cataract; COM MENT: Mild, bilateral Cervicalgia 06/07/2009 DX:Cervicalgia; COMMENT: 3 surgeries Chronic sinusitis 06/07/2013 DX:Chronic sin usitis Depression 04/16/2018 DX:Depression DM (diabetes mellitus), type 2 with peripheral vascular complications ([facility]) 03/20/2006 DX:DM (diabetes mellitus), t ype 2 with peripheral vascular complications ([facility]) DM (diabetes mellitus), type 2 with renal complications ([facility]) 03/16/2011 DX:DM (diabetes mellitus ), type 2 with renal complications ([facility]) Erectile dysfunction 11/16/2006 DX:Erectile dysfunction Facet syndrome 05/20/2009 DX:Facet syndrom e GERD (gastroesophageal reflux disease) 02/23/2009 DX:GERD (gastroesophageal reflux disease) Backache 01/27/2006 DX:Backache History of venous thrombosis 01/31/2006 DX: History of venous thrombosis Thyroid ca ([facility]) 09/23/2010 DX:Thyroid ca ([facility]) Hyperlipidemia 10/26/2009 DX:Hyperlipidemi a Hypertension 04/17/2006 DX:Hypertension Encounter for long-term curr ent use of medication 02/16/2006 DX:Encounter for long-term c urrent use of medication Microalbuminuria 03/16/2011 DX:Microalbumin uria Peripheral neuropathy 03/16/2011 DX:Periphe ral neuropathy; COMMENT: Noted from EMG Dr. Munoz 10/18/2010 Postsurgical hypothyroidism 02/20/2018 DX:P ostsurgical hypothyroidism Proctalgia fugax 06/16/2013 DX:Proctalgia f ugax PVD (peripheral vascular dis ease) ([facility]) 05/06/2010 DX:PVD (peripheral vascular disease) ([facility]) Radiculitis, lumbosacral 06/21/2010 DX:Radi culitis, lumbosacral Spinal stenosis, lumbar 08/04/2009 DX:Spina l stenosis, lumbar Type 2 diabetes mellitus wit h cataract ([facility]) 08/24/2010 DX:Type 2 diabetes mellitus with cataract ([facility]) Type 2 diabetes mellitus wit h neurologic complication ([facility]) 04/10/2014 DX:Type 2 diabetes m ellitus with neurologic complication ([facility]) Hearing loss 02/22/2006 DX:Hearing loss Back pain with history of sp inal surgery Kidney failure Family History Medical History Relation Name Comments Other: cancer Father metastatic can cer of unknown origin Diabetes Mother decesaed Relation Name Status Comments Father Mother Social History Tobacco Use Types Packs/Day [...] file Not on file Not on file Obstetrics History Last Filed Vital Signs Vital Sign Reading Time Taken Comments Blood Pressure 115/80 04/11/2024 1:57 PM EST Pulse 80 04/11/2024 1:57 PM EST Temperature 36.5 ??C (97.7 ??F) 03/21/2024 9:28 AM ES T Respiratory Rate 16 03/21/2024 9:28 AM EST Oxygen Saturation 95% 04/11/2024 1:57 PM EST Inhaled Oxygen Concentration - - Weight 78 kg (172 lb) 04/11/2024 1:57 PM EST Height 180.3 cm (5' 11 ) 04/11/2024 1:57 PM EST Body Mass Index 23.99 04/11/2024 1:57 PM EST Plan of Treatment Upcoming Encounters Date Type Department Care Team (Late st Contact Info) Description 04/22/2024 2:00 PM EST Office Visit Orthopedic Surgery - [place] [address] [phone] Jordon Bardales, DPM [address] [address] 04/23/2024 10:30 AM EST Office Visit Adult [address] [phone] Praful Davenport MD [address] [place] [address] 05/27/2024 1:15 PM EDT Office Visit [address] [phone] Praful Davenport MD [address] [place] [address] 06/06/2024 12:30 PM EDT Appointment [facility] Endoscopy [address] [place] [phone] Edison Ledezma MD [address] [facility] [address] [place] [address] 08/22/2024 1:00 PM EDT Office Visit Adult Medicine [facility] [address] [place] [phone] Praful Davenport MD [address] [place] [address] Health Maintenance Due Date Last Done Comments Diabetes: Annual Foot Exam 1959 Diabetes: Annual Retina Eye Exam 1960 Zoster Vaccines (1 of 2) 01/23/1968 DTaP,Tdap,and Td Vaccines (2 - Td or Tdap) 03/19/2013 03/19/2003 Pneumococcal Vaccine: 65+ Years (3 of 3 - PCV) 02/27/2016 02/26/2015, 10/07/2008 COVID-19 Vaccine (3 - Moderna risk series) 09/09/2020 08/12/2020, 07/15/2020 Depression Screening 02/25/2022 Social Influencers of Health Screening 02/25/2022 Lung Cancer Screening (Low Dose CT) 12/28/2022 12/28/2021, 12/13/2020 Medicare Annual Wellness Visit 01/31/2023 01/31/2022 Influenza Vaccine (#1) 2023 3, 12/04/2011, 12/29/2009, Additional history exists RSV Immunization Patients 60+ Years Old (1 - 1-dose 75+ series) 01/23/2024 Diabetes: Blood Sugar Control Test (HGBA1C) 08/02/2024 02/03/2024, 09/21/2023, 09/21/2023, Additional history exists Falls Risk Assessment 02/15/2025 02/16/2024 Diabetes: Annual Urine Albumin-Creatinine Ratio (uACR) 03/03/2025 03/03/2024, 03/03/2024, 09/21/2023, Additional history exists Diabetes: Annual GFR (Glomerular Filtration Rate) 03/03/2025 03/03/2024, 02/17/2024, 02/16/2024, Additional history exists Hypertension/CHF/CAD Annual BMP Blood Test 03/03/2025 03/03/2024, 02/17/2024, 02/16/2024, Additional history exists Colorectal Cancer Screening: Colonoscopy 05/03/2028 05/03/2018 Cholesterol Screening (Lipid Panel) 09/20/2028 09/21/2023, 09/21/2023 Hepatitis C Screening Completed 04/05/2013 HIB Vaccines Aged Out No longer eligi ble based on patient's age to complete this topic HPV Vaccines Aged Out No longer eligi ble based on patient's age to complete this topic Hepatitis A Vaccines Aged Out No long er eligible based on patient's age to complete this topic Hepatitis B Vaccines Aged Out No long er eligible based on patient's age to complete this topic IPV Vaccines Aged Out No longer eligi ble based on patient's age to complete this topic MMR Vaccines Aged Out No longer eligi ble based on patient's age to complete this topic Meningococcal ACWY Vaccine Aged Out N o longer eligible based on patient's age to complete this topic RSV Immunization Patients Under 20 months Aged Out No longer eligible based on patient's age to complete this topic Varicella Vaccines Aged Out No longer eligible based on patient's age to complete this topic Procedures Procedure Name Priority Date/Time Associated Diagnosis Comments MICROALBUMIN CREATININE URINE RATIO Routine 03/03/2024 4:40 PM EST Persistent proteinuria Acute kidney injury superimposed on CKD (CMS/HCC) PROTEIN, URINE, RANDOM Routine 4:40 PM EST Persistent proteinuria Acute kidney injury superimposed on CKD (CMS/HCC) RENAL FUNCTION PANEL Routine 03/03/2024 2:34 PM EST Persistent proteinuria Acute kidney injury superimposed on CKD (CMS/HCC) PARATHYROID HORMONE INTACT Routine 03/03/2024 2:34 PM EST Persistent proteinuria Acute kidney injury superimposed on CKD (CMS/HCC) COMPLETE BLOOD COUNT Routine 03/03/2024 2:34 PM EST Persistent proteinuria Acute kidney injury superimposed on CKD (CMS/HCC) POCT GLUCOSE BLOOD Routine 02/17/2024 7: 32 AM EST TRIIODOTHYRONINE FREE Routine 02/17/2024 5:40 AM EST FREE THYROXINE WITH REFLEX TO FREE TRIIODOTHYRONINE Routine 02/17/2024 5:40 AM EST CBC WITH AUTO DIFFERENTIAL Routine 02/17/2024 5:40 AM EST THYROID STIMULATING HORMONE WITH REFLEX TO FREE T4 AND FREE T3 Routine 02/17/2024 5:40 AM EST MAGNESIUM Routine 02/17/2024 5:40 AM EST CBC AND DIFFERENTIAL Routine 02/17/2024 5:40 AM EST BASIC METABOLIC PANEL Routine 02/17/2024 5:40 AM EST POCT GLUCOSE BLOOD Routine 02/17/2024 4: 25 AM EST CULTURE URINE STAT 02/16/2024 9:18 PM EST SOLANO URINE CULTURE TUBE Routine 02/16/20 7:41 PM EST EXTRA TUBES Routine 02/16/2024 7:41 PM EST URINALYSIS WITH REFLEX MICROSCOPIC STAT 02/16/2024 7:41 PM EST URINALYSIS WITH REFLEX MICROSCOPIC STAT 02/16/2024 7:41 PM EST POCT GLUCOSE BLOOD Routine 02/16/2024 6: 38 PM EST XR CHEST 1 VIEW STAT 02/16/2024 6:10 PM EST POCT GLUCOSE BLOOD Routine 02/16/2024 6: 07 PM EST ECG 12-LEAD STAT 02/16/2024 5:31 PM EST MAGNESIUM STAT Add-on 02/16/2024 5:24 PM EST CBC WITH AUTO DIFFERENTIAL STAT 02/16/2024 5:24 PM EST TROPONIN I HIGH SENSITIVITY STAT 02/16/2024 5:24 PM EST CBC AND DIFFERENTIAL STAT 02/16/2024 5:24 PM EST BASIC METABOLIC PANEL STAT 02/16/2024 5:24 PM EST ECG OUTSIDE 02/16/2024 POCT GLUCOSE BLOOD Routine 02/12/2024 11 :26 AM EST POCT GLUCOSE BLOOD Routine 02/12/2024 7: 38 AM EST CBC WITH AUTO DIFFERENTIAL Routine 02/12/2024 5:43 AM EST MAGNESIUM Routine 02/12/2024 5:43 AM EST CBC AND DIFFERENTIAL Routine 02/12/2024 5:43 AM EST BASIC METABOLIC PANEL Routine 02/12/2024 5:43 AM EST POCT GLUCOSE BLOOD Routine 02/11/2024 8: 26 PM EST POCT GLUCOSE BLOOD Routine 02/11/2024 4: 01 PM EST POCT GLUCOSE BLOOD Routine 02/11/2024 11 :56 AM EST LAVENDER - EDTA Routine 02/11/2024 10:37 AM EST EXTRA TUBES Routine 02/11/2024 10:37 AM EST BASIC METABOLIC PANEL Routine 02/11/2024 10:37 AM EST OXYGEN THERAPY, ADULT Routine 02/11/2024 8:02 AM EST POCT GLUCOSE BLOOD Routine 02/11/2024 7: 55 AM EST OXYGEN THERAPY, ADULT Routine 02/10/2024 8:00 PM EST POCT GLUCOSE BLOOD Routine 02/10/2024 7: 42 PM EST POCT GLUCOSE BLOOD Routine 02/10/2024 3: 24 PM EST POCT GLUCOSE BLOOD Routine 02/10/2024 11 :33 AM EST OXYGEN THERAPY, ADULT Routine 02/10/2024 8:01 AM EST POCT GLUCOSE BLOOD Routine 02/10/2024 7: 55 AM EST CBC WITH AUTO DIFFERENTIAL Routine 02/10/2024 6:04 AM EST MAGNESIUM Routine 02/10/2024 6:04 AM EST CBC AND DIFFERENTIAL Routine 02/10/2024 6:04 AM EST BASIC METABOLIC PANEL Routine 02/10/2024 6:04 AM EST POCT GLUCOSE BLOOD Routine 02/09/2024 8: 41 PM EST OXYGEN THERAPY, ADULT Routine 02/09/2024 8:00 PM EST POCT GLUCOSE BLOOD Routine 02/09/2024 3: 21 PM EST POCT GLUCOSE BLOOD Routine 02/09/2024 11 :04 AM EST OXYGEN THERAPY, ADULT Routine 02/09/2024 8:01 AM EST POCT GLUCOSE BLOOD Routine 02/09/2024 7: 36 AM EST OXYGEN THERAPY, ADULT Routine 02/08/2024 8:01 PM EST POCT GLUCOSE BLOOD Routine 02/08/2024 7: 42 PM EST POCT GLUCOSE BLOOD Routine 02/08/2024 3: 22 PM EST POCT GLUCOSE BLOOD Routine 02/08/2024 11 :12 AM EST CBC WITH AUTO DIFFERENTIAL STAT 02/08/2024 9:09 AM EST MAGNESIUM STAT 02/08/2024 9:09 AM EST CBC AND DIFFERENTIAL STAT 02/08/2024 9:09 AM EST BASIC METABOLIC PANEL STAT 02/08/2024 9:09 AM EST OXYGEN THERAPY, ADULT Routine 02/08/2024 8:02 AM EST OXYGEN THERAPY, ADULT Routine 02/08/2024 8:02 AM EST POCT GLUCOSE BLOOD Routine 02/08/2024 7: 24 AM EST OXYGEN THERAPY, ADULT Routine 02/07/2024 8:01 PM EST OXYGEN THERAPY, ADULT Routine 02/07/2024 8:01 PM EST POCT GLUCOSE BLOOD Routine 02/07/2024 7: 45 PM EST POCT GLUCOSE BLOOD Routine 02/07/2024 3: 12 PM EST OXYGEN THERAPY, ADULT Routine 02/07/2024 2:39 PM EST OXYGEN THERAPY, ADULT Routine 02/07/2024 2:39 PM EST OXYGEN THERAPY, ADULT Routine 02/07/2024 2:39 PM EST POCT GLUCOSE BLOOD Routine 02/07/2024 11 :18 AM EST OXYGEN THERAPY, ADULT Routine 02/07/2024 8:02 AM EST POCT GLUCOSE BLOOD Routine 02/07/2024 7: 42 AM EST MAGNESIUM Routine 02/07/2024 6:14 AM EST BASIC METABOLIC PANEL Routine 02/07/2024 6:14 AM EST POCT GLUCOSE BLOOD Routine 02/07/2024 5: 15 AM EST POCT GLUCOSE BLOOD Routine 02/06/2024 8: 04 PM EST OXYGEN THERAPY, ADULT Routine 02/06/2024 8:01 PM EST POCT GLUCOSE BLOOD Routine 02/06/2024 4: 21 PM EST POCT GLUCOSE BLOOD Routine 02/06/2024 11 :49 AM EST OXYGEN THERAPY, ADULT Routine 02/06/2024 8:02 AM EST CBC WITH AUTO DIFFERENTIAL Routine 02/06/2024 5:27 AM EST ACTIVATED PARTIAL THROMBOPLASTIN TIME Routine 02/06/2024 5:27 AM EST PROTHROMBIN TIME WITH INR Routine 02/06/2024 5:27 AM EST CBC AND DIFFERENTIAL Routine 02/06/2024 5:27 AM EST BASIC METABOLIC PANEL Routine 02/06/2024 5:27 AM EST POCT GLUCOSE BLOOD Routine 02/05/2024 11 :42 PM EST POCT GLUCOSE BLOOD Routine 02/05/2024 8: 16 PM EST OXYGEN THERAPY, ADULT Routine 02/05/2024 8:01 PM EST POCT GLUCOSE BLOOD Routine 02/05/2024 4: 19 PM EST POCT GLUCOSE BLOOD Routine 02/05/2024 11 :28 AM EST OXYGEN THERAPY, ADULT Routine 02/05/2024 8:02 AM EST POCT GLUCOSE BLOOD Routine 02/05/2024 7: 43 AM EST CBC WITH AUTO DIFFERENTIAL Routine 02/05/2024 5:38 AM EST CBC AND DIFFERENTIAL Routine 02/05/2024 5:38 AM EST MAGNESIUM Routine 02/05/2024 5:38 AM EST BASIC METABOLIC PANEL Routine 02/05/2024 5:38 AM EST POCT GLUCOSE BLOOD Routine 02/05/2024 3: 58 AM EST ALDOSTERONE Routine 02/05/2024 1:13 AM EST RENIN DIRECT ASSAY Routine 02/05/2024 12 :34 AM EST POCT GLUCOSE BLOOD Routine 02/04/2024 11 :53 PM EST POCT GLUCOSE BLOOD Routine 02/04/2024 10 :35 PM EST POCT GLUCOSE BLOOD Routine 02/04/2024 10 :33 PM EST POCT GLUCOSE BLOOD Routine 02/04/2024 8: 27 PM EST OXYGEN THERAPY, ADULT Routine 02/04/2024 8:01 PM EST POCT GLUCOSE BLOOD Routine 02/04/2024 3: 07 PM EST POCT GLUCOSE BLOOD Routine 02/04/2024 12 :19 PM EST VAS US DUPLEX RENAL ART/ALEX BILATERAL Routine 02/04/2024 10:49 AM EST Resistant hypertension PVD (peripheral vascular disease) ([facility]) POCT GLUCOSE BLOOD Routine 02/04/2024 8: 53 AM EST OXYGEN THERAPY, ADULT Routine 02/04/2024 8:02 AM EST CBC WITH AUTO DIFFERENTIAL Routine 02/04/2024 4:12 AM EST VENOUS BLOOD GAS Routine 02/04/2024 4:12 AM EST PHOSPHORUS Routine 02/04/2024 4:12 AM EST MAGNESIUM Routine 02/04/2024 4:12 AM EST CBC AND DIFFERENTIAL Routine 02/04/2024 4:12 AM EST BASIC METABOLIC PANEL Routine 02/04/2024 4:12 AM EST ECG OUTSIDE 02/04/2024 POCT GLUCOSE BLOOD Routine 02/03/2024 8: 04 PM EST OXYGEN THERAPY, ADULT Routine 02/03/2024 8:01 PM EST ECG 12-LEAD STAT 02/03/2024 5:27 PM EST POCT GLUCOSE BLOOD Routine 02/03/2024 3: 23 PM EST TRANSTHORACIC ECHOCARDIOGRAM (TTE) COMPLETE W/ CONTRAST Routine 02/03/2024 11:47 AM EST Elevated troponin Shortness of breath POCT GLUCOSE BLOOD Routine 02/03/2024 11 :02 AM EST OXYGEN THERAPY, ADULT Routine 02/03/2024 8:01 AM EST POCT GLUCOSE BLOOD Routine 02/03/2024 7: 39 AM EST TROPONIN I HIGH SENSITIVITY Routine 02/03/2024 6:28 AM EST TRIIODOTHYRONINE FREE Routine 02/03/2024 5:25 AM EST FREE THYROXINE WITH REFLEX TO FREE TRIIODOTHYRONINE Routine 02/03/2024 5:25 AM EST CBC WITH AUTO DIFFERENTIAL Routine 02/03/2024 5:25 AM EST THYROID STIMULATING HORMONE WITH REFLEX TO FREE T4 AND FREE T3 Routine 02/03/2024 5:25 AM EST PHOSPHORUS Routine 02/03/2024 5:25 AM EST MAGNESIUM Routine 02/03/2024 5:25 AM EST HEMOGLOBIN A1C Routine 02/03/2024 5:25 AM EST COMPREHENSIVE METABOLIC PANEL Routine 02/03/2024 5:25 AM EST CBC AND DIFFERENTIAL Routine 02/03/2024 5:25 AM EST XR CHEST 1 VIEW STAT 02/02/2024 9:45 PM EST POCT GLUCOSE BLOOD Routine 02/02/2024 8: 27 PM EST OXYGEN THERAPY, ADULT Routine 02/02/2024 8:01 PM EST TRANSFUSE RED BLOOD CELLS Routine 02/02/2024 4:[address] CHEST WO CONTRAST Routine 02/02/2024 4:[address] ABDOMEN PELVIS WO CONTRAST STAT 02/02/2024 4:18 PM EST POCT GLUCOSE BLOOD Routine 02/02/2024 3: 43 PM EST TRANSFUSE RED BLOOD CELLS Routine 02/02/2024 12:00 PM EST POCT GLUCOSE BLOOD Routine 02/02/2024 11 :44 AM EST XR CHEST 1 VIEW STAT 02/02/2024 9:06 AM EST TYPE AND SCREEN Routine 02/02/2024 8:59 AM EST ECG 12-LEAD Routine 02/02/2024 8:47 AM EST OXYGEN THERAPY, ADULT Routine 02/02/2024 8:23 AM EST OXYGEN THERAPY, ADULT Routine 02/02/2024 8:23 AM EST POCT GLUCOSE BLOOD Routine 02/02/2024 8: 05 AM EST PREPARE RBC Routine 02/02/2024 8:04 AM EST CBC WITH AUTO DIFFERENTIAL Routine 02/02/2024 5:39 AM EST TROPONIN I HIGH SENSITIVITY Routine 02/02/2024 5:39 AM EST PHOSPHORUS Routine 02/02/2024 5:39 AM EST MAGNESIUM Routine 02/02/2024 5:39 AM EST CBC AND DIFFERENTIAL Routine 02/02/2024 5:39 AM EST BASIC METABOLIC PANEL Routine 02/02/2024 5:39 AM EST POCT GLUCOSE BLOOD Routine 02/02/2024 5: 31 AM EST POCT GLUCOSE BLOOD Routine 02/02/2024 3: 22 AM EST VAS US DUPLEX LOWER EXT VENOUS RIGHT STAT 02/02/2024 2:04 AM EST Pain and swelling of lower extremity, unspecified laterality TROPONIN I HIGH SENSITIVITY Routine 02/01/2024 11:24 PM EST VAS US DUPLEX LOWER EXT VENOUS LEFT STAT 02/01/2024 10:39 PM EST Pain and swelling of left lower extremity POCT GLUCOSE BLOOD Routine 02/01/2024 10 :27 PM EST POCT GLUCOSE BLOOD Routine 02/01/2024 9: 24 PM EST XR CHEST 1 VIEW STAT 02/01/2024 8:34 PM EST PROTHROMBIN TIME WITH INR Routine 02/01/2024 8:24 PM EST ACTIVATED PARTIAL THROMBOPLASTIN TIME Routine 02/01/2024 8:24 PM EST BASIC METABOLIC PANEL STAT 02/01/2024 8:20 PM EST COMPLETE BLOOD COUNT STAT 02/01/2024 8:20 PM EST B-TYPE NATRIURETIC PEPTIDE STAT 02/01/2024 8:20 PM EST POCT GLUCOSE BLOOD Routine 02/01/2024 7: 48 PM EST POCT GLUCOSE BLOOD Routine 02/01/2024 4: 20 PM EST DIFFERENTIAL BODY FLUID Routine 02/01/20 24 1:49 PM EST CELL COUNT WITH REFLEX DIFFERENTIAL, BODY FLUID Routine 02/01/2024 1:49 PM EST CRYSTAL IDENTIFICATION, BODY FLUID Routine 02/01/2024 1:49 PM EST CULTURE BODY FLUID WITH GRAM STAIN Routine 02/01/2024 1:49 PM EST POCT GLUCOSE BLOOD Routine 02/01/2024 11 :10 AM EST POCT GLUCOSE BLOOD Routine 02/01/2024 7: 46 AM EST CBC WITH AUTO DIFFERENTIAL Routine 02/01/2024 5:39 AM EST PHOSPHORUS Routine 02/01/2024 5:39 AM EST MAGNESIUM Routine 02/01/2024 5:39 AM EST BASIC METABOLIC PANEL Routine 02/01/2024 5:39 AM EST CBC AND DIFFERENTIAL Routine 02/01/2024 5:39 AM EST POCT GLUCOSE BLOOD Routine 01/31/2024 8: 20 PM EST POCT GLUCOSE BLOOD Routine 01/31/2024 4: 14 PM EST XR KNEE 4+ VIEWS RIGHT Routine 1:10 PM EST POCT GLUCOSE BLOOD Routine 01/31/2024 11 :23 AM EST POCT GLUCOSE BLOOD Routine 01/31/2024 8: 03 AM EST CBC WITH AUTO DIFFERENTIAL Routine 01/31/2024 6:09 AM EST MAGNESIUM Routine 01/31/2024 6:09 AM EST BASIC METABOLIC PANEL Routine 01/31/2024 6:09 AM EST CBC AND DIFFERENTIAL Routine 01/31/2024 6:09 AM EST POCT GLUCOSE BLOOD Routine 01/30/2024 10 :06 PM EST POCT GLUCOSE BLOOD Routine 01/30/2024 4: 04 PM EST POCT GLUCOSE BLOOD Routine 01/30/2024 11 :11 AM EST POCT GLUCOSE BLOOD Routine 01/30/2024 9: 04 AM EST CBC WITH AUTO DIFFERENTIAL Routine 01/30/2024 6:41 AM EST PHOSPHORUS Routine 01/30/2024 6:41 AM EST MAGNESIUM Routine 01/30/2024 6:41 AM EST BASIC METABOLIC PANEL Routine 01/30/2024 6:41 AM EST CBC AND DIFFERENTIAL Routine 01/30/2024 6:41 AM EST SOLANO URINE CULTURE TUBE Routine 01/29/20 5:16 PM EST EXTRA TUBES Routine 01/29/2024 5:16 PM EST URINALYSIS MICROSCOPIC ONLY Routine 01/29/2024 4:54 PM EST CREATININE, URINE, RANDOM STAT 01/29/2024 4:54 PM EST SODIUM, URINE, RANDOM Routine 01/29/2024 4:54 PM EST PROTEIN AND CREATININE WITH RATIO, URINE Routine 01/29/2024 4:54 PM EST URINALYSIS MICROSCOPIC ONLY Routine 01/29/2024 4:54 PM EST POCT GLUCOSE BLOOD Routine 01/29/2024 4: 07 PM EST POCT GLUCOSE BLOOD Routine 01/29/2024 12 :28 PM EST POCT GLUCOSE BLOOD Routine 01/29/2024 8: [address] ABDOMEN PELVIS WO CONTRAST Routine 01/29/2024 7:54 AM EST CBC WITH AUTO DIFFERENTIAL Routine 01/29/2024 5:47 AM EST MAGNESIUM Routine 01/29/2024 5:47 AM EST COMPREHENSIVE METABOLIC PANEL Routine 01/29/2024 5:47 AM EST CBC AND DIFFERENTIAL Routine 01/29/2024 5:47 AM EST POCT GLUCOSE BLOOD Routine 01/28/2024 8: 21 PM EST POCT GLUCOSE BLOOD Routine 01/28/2024 3: 45 PM EST POCT GLUCOSE BLOOD Routine 01/28/2024 12 :11 PM EST POCT GLUCOSE BLOOD Routine 01/28/2024 8: 11 AM EST CBC WITH AUTO DIFFERENTIAL Routine 01/28/2024 5:51 AM EST BASIC METABOLIC PANEL Routine 01/28/2024 5:51 AM EST CBC AND DIFFERENTIAL Routine 01/28/2024 5:51 AM EST POCT GLUCOSE BLOOD Routine 01/27/2024 8: 17 PM EST POCT GLUCOSE BLOOD Routine 01/27/2024 3: 57 PM EST POCT GLUCOSE BLOOD Routine 01/27/2024 12 :21 PM EST POCT GLUCOSE BLOOD Routine 01/27/2024 8: 05 AM EST C-REACTIVE PROTEIN Add-On 01/27/2024 6: 09 AM EST SEDIMENTATION RATE Add-On 01/27/2024 6: 09 AM EST CBC WITH AUTO DIFFERENTIAL Routine 01/27/2024 6:09 AM EST CBC AND DIFFERENTIAL Routine 01/27/2024 6:09 AM EST BASIC METABOLIC PANEL Routine 01/27/2024 6:09 AM EST POCT GLUCOSE BLOOD Routine 01/26/2024 9: 18 PM EST POCT GLUCOSE BLOOD Routine 01/26/2024 4: 03 PM EST POCT GLUCOSE BLOOD Routine 01/26/2024 11 :32 AM EST POCT GLUCOSE BLOOD Routine 01/26/2024 8: 20 AM EST TYPE AND SCREEN Routine 01/26/2024 5:20 AM EST SOLUBLE TRANSFERRIN RECEPTOR Routine 01/26/2024 5:16 AM EST VITAMIN B12 Routine 01/26/2024 5:16 AM EST IRON AND TIBC Routine 01/26/2024 5:16 AM EST FOLATE Routine 01/26/2024 5:16 AM EST FERRITIN Routine 01/26/2024 5:16 AM EST CALCIUM, IONIZED Routine 01/26/2024 5:16 AM EST BASIC METABOLIC PANEL Routine 01/26/2024 5:16 AM EST PHOSPHORUS Routine 01/26/2024 5:16 AM EST MAGNESIUM Routine 01/26/2024 5:16 AM EST POCT GLUCOSE BLOOD Routine 01/25/2024 9: 59 PM EST POCT GLUCOSE BLOOD Routine 01/25/2024 4: 20 PM EST VANCOMYCIN, TROUGH Timed 01/25/2024 3: 00 PM EST POCT GLUCOSE BLOOD Routine 01/25/2024 11 :03 AM EST POCT GLUCOSE BLOOD Routine 01/25/2024 8: 18 AM EST LT BLUE - NA CITRATE Routine 01/25/2024 4:45 AM EST EXTRA TUBES Routine 01/25/2024 4:45 AM EST CBC WITH AUTO DIFFERENTIAL Routine 01/25/2024 4:45 AM EST PHOSPHORUS Routine 01/25/2024 4:45 AM EST MAGNESIUM Routine 01/25/2024 4:45 AM EST CALCIUM, IONIZED Routine 01/25/2024 4:45 AM EST BASIC METABOLIC PANEL Routine 01/25/2024 4:45 AM EST CBC AND DIFFERENTIAL Routine 01/25/2024 4:45 AM EST POCT GLUCOSE BLOOD Routine 01/24/2024 8: 35 PM EST POCT GLUCOSE BLOOD Routine 01/24/2024 5: 25 PM EST MR BRAIN WO AND W CONTRAST Routine 01/24/2024 4:[address] ABDOMEN PELVIS WO CONTRAST STAT 01/24/2024 4:20 PM EST LIPASE Add-On 01/24/2024 1:31 PM EST BASIC METABOLIC PANEL Routine 01/24/2024 1:31 PM EST POCT GLUCOSE BLOOD Routine 01/24/2024 12 :05 PM EST POCT GLUCOSE BLOOD Routine 01/24/2024 9: 42 AM EST LACTATE Routine 01/24/2024 4:01 AM EST PHOSPHORUS Routine 01/24/2024 4:01 AM EST MAGNESIUM Routine 01/24/2024 4:01 AM EST CALCIUM, IONIZED Routine 01/24/2024 4:01 AM EST BASIC METABOLIC PANEL Routine 01/24/2024 4:01 AM EST CBC WITH AUTO DIFFERENTIAL Routine 01/24/2024 4:00 AM EST CBC AND DIFFERENTIAL Routine 01/24/2024 4:00 AM EST POCT GLUCOSE BLOOD Routine 01/24/2024 12 :23 AM EST POCT GLUCOSE BLOOD Routine 01/23/2024 10 :19 PM EST POCT GLUCOSE BLOOD Routine 01/23/2024 4: 06 PM EST POCT GLUCOSE BLOOD Routine 01/23/2024 12 :11 PM EST POCT GLUCOSE BLOOD Routine 01/23/2024 8: 27 AM EST CBC WITH AUTO DIFFERENTIAL Routine 01/23/2024 6:25 AM EST ALBUMIN Routine 01/23/2024 6:25 AM EST LACTATE Routine 01/23/2024 6:25 AM EST PROCALCITONIN Routine 01/23/2024 6:25 AM EST PHOSPHORUS Routine 01/23/2024 6:25 AM EST MAGNESIUM Routine 01/23/2024 6:25 AM EST CBC AND DIFFERENTIAL Routine 01/23/2024 6:25 AM EST CALCIUM, IONIZED Routine 01/23/2024 6:25 AM EST BASIC METABOLIC PANEL Routine 01/23/2024 6:25 AM EST PROTHROMBIN TIME WITH INR STAT 2024 11:03 PM EST CBC WITH AUTO DIFFERENTIAL STAT 2024 11:02 PM EST CBC AND DIFFERENTIAL STAT 2024 11:02 PM EST CALCIUM, IONIZED STAT 2024 11:0 2 PM EST THYROID STIMULATING HORMONE WITH REFLEX TO FREE T4 AND FREE T3 STAT Add-on 2024 10:41 PM EST LACTATE STAT 2024 10:41 PM EST PHOSPHORUS STAT 2024 10:41 PM EST MAGNESIUM STAT 2024 10:41 PM EST BASIC METABOLIC PANEL STAT 2024 10:41 PM EST POCT GLUCOSE BLOOD Routine 2024 4: 09 PM EST METANEPHRINES, PLASMA FREE Routine 2024 3:53 PM EST DRUG ABUSE SCREEN 8A PANEL, URINE Routine 2024 3:43 PM EST CORTISOL Add-On 2024 3:06 PM EST PROLACTIN Add-On 2024 3:06 PM EST ETHANOL Add-On 2024 3:06 PM EST TREPONEMA PALLIDUM ANTIBODY WITH REFLEX TO RPR AND PARTICLE AGGLUTINATION STAT 2024 3:06 PM EST VITAMIN B12 AND FOLATE STAT 3:06 PM EST AMMONIA STAT 2024 3:06 PM EST CREATINE KINASE AND CKMB STAT 2024 3:06 PM EST LACTATE, WITH REFLEX Timed 2024 3:06 PM EST TROPONIN I HIGH SENSITIVITY STAT 2024 3:06 PM EST RESPIRATORY VIRUS PANEL MOLECULAR STUDY Routine 2024 2:47 PM EST POCT GLUCOSE BLOOD Routine 2024 2: [address] ABDOMEN PELVIS WO CONTRAST STAT 2024 11:[address] HEAD WO CONTRAST STAT 2024 1 1:35 AM EST CULTURE BLOOD STAT 2024 10:36 AM EST VENOUS BLOOD GAS STAT 2024 10:2 5 AM EST PROTHROMBIN TIME WITH INR STAT 2024 10:25 AM EST TYPE AND SCREEN STAT 2024 10:25 AM EST POCT GLUCOSE BLOOD Routine 2024 10 :19 AM EST XR CHEST 1 VIEW STAT 2024 10:18 AM EST SOLANO URINE CULTURE TUBE STAT 01/22/20 10:11 AM EST URINALYSIS WITH REFLEX MICROSCOPIC AND CULTURE STAT 2024 10:11 AM EST URINALYSIS WITH REFLEX MICROSCOPIC AND CULTURE STAT 2024 10:11 AM EST PROCALCITONIN Add-On 2024 10:09 AM EST BETA HYDROXYBUTYRATE STAT 2024 10:09 AM EST LIPASE STAT 2024 10:09 AM EST THYROID STIMULATING HORMONE STAT 2024 10:09 AM EST THYROXINE FREE STAT 2024 10:09 AM EST LACTATE, WITH REFLEX STAT 2024 10:09 AM EST TROPONIN I HIGH SENSITIVITY STAT 2024 10:09 AM EST COMPREHENSIVE METABOLIC PANEL STAT 2024 10:09 AM EST CBC WITH AUTO DIFFERENTIAL STAT 2024 10:09 AM EST PROLACTIN STAT 2024 10:09 AM EST MAGNESIUM STAT 2024 10:09 AM EST CBC AND DIFFERENTIAL STAT 2024 10:09 AM EST CULTURE BLOOD STAT 2024 10:09 AM EST ECG 12-LEAD STAT 2024 9:18 AM EST ECG ANNOTATED 2024 LIPID PANEL Routine 09/21/2023 CT LUNG SCREENING LOW DOSE Routine 12/28/2021 9:20 AM EDT Personal history of nicotine dependence HM COLONOSCOPY Routine 05/03/2018 HEPATITIS C SCREENING Routine 04/05/2013 from Last 3 Months or Most Recently Relevant to Health Maintenance Results * (ABNORMAL) Microalbumin creatinine urine ratio (03/03/2024 4:40 PM EST) Creatinine, Urine 52.0 mg/dL LAB CHEMISTRY METHOD 03/03/2024 8:41 PM EST [facility] Microalb, Ur 262.0(H) 0.0 - 29.0 mg/L LAB CHEMISTRY METHOD 03/03/2024 8:41 PM EST [facility] Microalb/Crea t Ratio 504(H) <30 mg/g creat LAB CHEMISTRY METHOD 03/03/2024 8:41 PM EST [facility] Urine Urine specimen obtained by clean catch procedure / Unknown Non-blood Collection / Unknown 03/03/2024 4:40 PM EST 03/03/2024 4:40 PM EST Jimena Rust [facility] URINE ORDERABLES [facility] [address] [place] [address], * Protein, urine, random (03/03/2024 4:40 PM EST) [facility] Protein, Urine 60 mg/dL LAB CHEMISTRY METHOD 03/03/2024 8:34 PM EST [facility] Urine Urine specimen obtained by clean catch procedure / Unknown Non-blood Collection / Unknown 03/03/2024 4:40 PM EST 03/03/2024 4:40 PM EST Jimena Rust [facility] URINE ORDERABLES [facility] [address] [place] [address], * (ABNORMAL) Complete blood count (03/03/2024 2:34 PM EST) Only the most recent of2 resultswithin the time period is included. [facility] WBC 11.9(H) 4.8 - 10.8 K/mcL LAB HEMETOLOGY METHOD 03/03/2024 4:43 PM [facility] RBC 3.90(L) 4.50 - 5.50 M/mcL LAB HEMETOLOGY METHOD 03/03/2024 4:43 PM [facility] Hemoglobin 11.7(L) 13.5 - 17.5 g/dL LAB HEMETOLOGY METHOD 03/03/2024 4:43 PM [facility] Hematocrit 36.6(L) 42.0 - 54.0 % LAB HEMETOLOGY METHOD 03/03/2024 4:43 PM [facility] MCV 95.1 79.0 - 98.0 FL LAB HEMETOLOGY METHOD 03/03/2024 4:43 PM [facility] MCH 30.4 27.0 - 32.0 pcg LAB HEMETOLOGY METHOD 03/03/2024 4:43 PM [facility] MCHC 32.0 32.0 - 37.0 g/dL LAB HEMETOLOGY METHOD 03/03/2024 4:43 PM [facility] RDW 14.6 11.0 - 15.0 % LAB HEMETOLOGY METHOD 03/03/2024 4:43 PM EST [facility] Platelets 290 130 - 400 K/mcL LAB HEMETOLOGY METHOD 03/03/2024 4:43 PM EST [facility] MPV 10.7 7.0 - 11.0 FL LAB HEMETOLOGY METHOD 03/03/2024 4:43 PM EST [facility] NRBC 0.0 <1.0 % LAB HEMETOLOGY METHOD 03/03/2024 4:43 PM EST [facility] NRBC Absolute 0.00 <0.10 K/mcL LAB HEMETOLOGY METHOD 03/03/2024 4:43 PM EST [facility] Blood Venous blood specimen / Unknown Venipuncture / Unknown 03/03/2024 2:34 PM EST 03/03/2024 2:34 PM EST [facility] LAB BLOOD ORDERABLES [facility] [address] [place] [address], [place] [phone] * (ABNORMAL) Parathyroid hormone intact (03/03/2024 2:34 PM EST) PTH 300.2(H) 18.5 - 88.0 pcg/mL LAB CHEMISTRY METHOD 03/03/2024 5:45 PM EST [facility] Blood Venous blood specimen / Unknown Venipuncture / Unknown 03/03/2024 2:34 PM EST 03/03/2024 2:34 PM EST [facility] LAB BLOOD ORDERABLES Performing Organization Address City/[facility]/ZIP Co de Phone Number [facility] [address] [place] [address], [place] [phone] * (ABNORMAL) Renal function panel (03/03/2024 2:34 PM EST) Sodium 138 133 - 145 mmol/L LAB CHEMISTRY METHOD 03/03/2024 5:35 PM [facility] Potassium 5.1 3.5 - 5.5 mmol/L LAB CHEMISTRY METHOD 03/03/2024 5:35 PM [facility] Chloride 100 96 - 110 mmol/L LAB CHEMISTRY METHOD 03/03/2024 5:35 PM [facility] CO2 30 21 - 32 mmol/L LAB CHEMISTRY METHOD 03/03/2024 5:35 PM [facility] Anion Gap 8 3 - 11 LAB CHEMISTRY METHOD 03/03/2024 5:35 PM [facility] Glucose 232(H) 70 - 100 mg/dL LAB CHEMISTRY METHOD 03/03/2024 5:35 PM [facility] BUN 72(H) 5 - 25 mg/dL LAB CHEMISTRY METHOD 03/03/2024 5:35 PM [facility] Creatinine 2.41(H) 0.70 - 1.30 mg/dL LAB CHEMISTRY METHOD 03/03/2024 5:35 PM [facility] eGFR 27(L) >=60 mL/min/1. 73m2 LAB CHEMISTRY METHOD 03/03/2024 5:35 PM [facility] Comment:Calculation based on the??Chronic Kidney Disease Epidemiology Collaboration (CKD-EPI) equation refit??without adjustment for race. BUN/Creatinine Ratio 29.9 LAB CHEMISTRY METHOD 03/03/2024 5:35 PM [facility] Albumin 2.8(L) 3.2 - 5.0 g/dL LAB CHEMISTRY METHOD 03/03/2024 5:35 PM [facility] Calcium 8.8 8.5 - 10.5 mg/dL LAB CHEMISTRY METHOD 03/03/2024 5:35 PM [facility] Phosphorus 3.2 2.5 - 4.5 mg/dL LAB CHEMISTRY METHOD 03/03/2024 5:35 PM EST [facility] Blood Venous blood specimen / Unknown Venipuncture / Unknown 03/03/2024 2:34 PM EST 03/03/2024 2:34 PM EST Jimena Rust [facility] BLOOD ORDERABLES Performing Organization Address [facility] Co de Phone Number [facility] [address] [place] [address], [place] [phone] * (ABNORMAL) POCT Glucose, blood (02/17/2024 7:32 AM EST) Only the most recent of98 resultswithin the time period is included. Glucose POCT 191(H) 70 - 100 mg/dL 02/17/2024 7:32 AM EST [facility] Blood Capillary blood specimen / Unknown 02/17/2024 7:32 AM EST 02/17/2024 7:33 AM EST Farhad Wen MD LAB POINT OF CARE TE ST DOCKED DEVICE UNSOLICITED RESULTS Performing Organization Address [facility] de Phone Number [facility] [address] [place] [address], [place] [phone] * (ABNORMAL) Thyroid stimulating hormone with reflex to free t4 and free t3 (02/17/2024 5:40 AM EST) Only the most recent of3 resultswithin the time period is included. TSH 10.65(H) 0.40 - 4.00 mcIU/mL LAB CHEMISTRY METHOD 02/17/2024 6:53 AM EST [facility] Blood Venous blood specimen / Unknown Venipuncture / Unknown 02/17/2024 5:40 AM EST 02/17/2024 6:14 AM EST Maria Guadalupe HRA[facility]Y LAB BLOOD ORDERABLES Performing Organization Address City/[facility]/ZIP Co de Phone Number [facility] [address] [place] [address], * Free thyroxine with reflex to free triiodothyronine (02/17/2024 5:40 AM EST) Only the most recent of2 resultswithin the time period is included. Pathologist [facility] Free T4 1.40 0.70 - 1.80 ng/dL LAB CHEMISTRY METHOD 02/17/2024 7:20 AM [facility] Blood Venous blood specimen / Unknown Venipuncture / Unknown 02/17/2024 5:40 AM EST 02/17/2024 6:14 AM EST Maria Guadalupe HARVEY LAB BLOOD ORDERABLES Performing Organization Address [facility]/State/ZIP Co de Phone Number [facility] [address] [place] [address], * (ABNORMAL) CBC auto differential (02/17/2024 5:40 AM EST) Only the most recent of21 resultswithin the time period is included. [facility] WBC 11.7(H) 4.8 - 10.8 K/mcL LAB HEMETOLOGY METHOD 02/17/2024 6:21 AM [facility] RBC 3.80(L) 4.50 - 5.50 M/mcL LAB HEMETOLOGY METHOD 02/17/2024 6:21 AM [facility] Hemoglobin 11.5(L) 13.5 - 17.5 g/dL LAB HEMETOLOGY METHOD 02/17/2024 6:21 AM [facility] Hematocrit 35.3(L) 42.0 - 54.0 % LAB HEMETOLOGY METHOD 02/17/2024 6:21 AM [facility] MCV 93.9 79.0 - 98.0 FL LAB HEMETOLOGY METHOD 02/17/2024 6:21 AM [facility] MCH 30.6 27.0 - 32.0 pcg LAB HEMETOLOGY METHOD 02/17/2024 6:21 AM [facility] MCHC 32.6 32.0 - 37.0 g/dL LAB HEMETOLOGY METHOD 02/17/2024 6:21 AM [facility] RDW 14.0 11.0 - 15.0 % LAB HEMETOLOGY METHOD 02/17/2024 6:21 AM [facility] Platelets 294 130 - 400 K/mcL LAB HEMETOLOGY METHOD 02/17/2024 6:21 AM [facility] MPV 10.4 7.0 - 11.0 FL LAB HEMETOLOGY METHOD 02/17/2024 6:21 AM [facility] NRBC 0.0 <1.0 % LAB HEMETOLOGY METHOD 02/17/2024 6:21 AM [facility] NRBC Absolute 0.00 <0.10 K/mcL LAB HEMETOLOGY METHOD 02/17/2024 6:21 AM [facility] Neutrophils Relative 83.1 % LAB HEMETOLOGY METHOD 02/17/2024 6:21 AM [facility] Lymphocytes Relative 6.8 % LAB HEMETOLOGY METHOD 02/17/2024 6:21 AM [facility] Monocytes Relative 7.8 % LAB HEMETOLOGY METHOD 02/17/2024 6:21 AM [facility] Eosinophils Relative 1.6 % LAB HEMETOLOGY METHOD 02/17/2024 6:21 AM [facility] Basophils Relative 0.3 % LAB HEMETOLOGY METHOD 02/17/2024 6:21 AM [facility] Immature Granulocytes Relative 0.4 % LAB HEMETOLOGY METHOD 02/17/2024 6:21 AM [facility] Neutrophils Absolute 9.75(H) 1.50 - 7.00 K/mcL LAB HEMETOLOGY METHOD 02/17/2024 6:21 AM EST [facility] Lymphocytes Absolute 0.80(L) 1.00 - 5.00 K/[facility] LAB HEMETOLOGY METHOD 02/17/2024 6:21 AM EST [facility] Monocytes Absolute 0.92 0.20 - 1.00 K/[facility] LAB HEMETOLOGY METHOD 02/17/2024 6:21 AM EST [facility] Eosinophils Absolute 0.19 0.00 - 0.50 K/[facility] LAB HEMETOLOGY METHOD 02/17/2024 6:21 AM EST [facility] Basophils Absolute 0.03 0.00 - 0.20 K/[facility] LAB HEMETOLOGY METHOD 02/17/2024 6:21 AM [facility] Immature Granulocytes Absolute 0.05(H) 0.00 - 0.03 K/[facility] LAB HEMETOLOGY METHOD 02/17/2024 6:21 AM EST [facility] Blood Venous blood specimen / Unknown Venipuncture / Unknown 02/17/2024 5:40 AM EST 02/17/2024 6:14 AM EST Jordon Julian MD LAB BLOOD ORDERABLE S [facility] [address] [place] [address], * (ABNORMAL) Triiodothyronine free (02/17/2024 5:40 AM EST) Only the most recent of2 resultswithin the time period is included. T3, Free 186(L) 230 - 420 pcg/dL LAB CHEMISTRY METHOD 02/17/2024 7:48 AM EST [facility] Blood Venous blood specimen / Unknown Venipuncture / Unknown 02/17/2024 5:40 AM EST 02/17/2024 6:14 AM EST Maria Guadalupe HARVEY LAB BLOOD ORDERABLES Performing Organization Address [facility]/ZIP Co de Phone Number [facility] [address] [place] [address], * Magnesium (02/17/2024 5:40 AM EST) Only the most recent of20 resultswithin the time period is included. Magnesium 2.5 1.9 - 2.6 mg/dL LAB CHEMISTRY METHOD 02/17/2024 6:42 AM [facility] Blood Venous blood specimen / Unknown Venipuncture / Unknown 02/17/2024 5:40 AM EST 02/17/2024 6:14 AM EST Jordon Julian MD LAB BLOOD ORDERABLE S Performing Organization Address [facility]/ZIP Co de Phone Number [facility] [address] [place] [address], [place] [phone] * (ABNORMAL) Basic metabolic panel (02/17/2024 5:40 AM EST) Only the most recent of23 resultswithin the time period is included. Sodium 135 133 - 145 mmol/L LAB CHEMISTRY METHOD 02/17/2024 6:42 AM [facility] Potassium 3.8 3.5 - 5.5 mmol/L LAB CHEMISTRY METHOD 02/17/2024 6:42 AM [facility] Chloride 93(L) 96 - 110 mmol/L LAB CHEMISTRY METHOD 02/17/2024 6:42 AM [facility] CO2 33(H) 21 - 32 mmol/L LAB CHEMISTRY METHOD 02/17/2024 6:42 AM [facility] Anion Gap 9 3 - 11 LAB CHEMISTRY METHOD 02/17/2024 6:42 AM [facility] Glucose 162(H) 70 - 100 mg/dL LAB CHEMISTRY METHOD 02/17/2024 6:42 AM [facility] BUN 63(H) 5 - 25 mg/dL LAB CHEMISTRY METHOD 02/17/2024 6:42 AM EST [facility] Creatinine 2.56(H) 0.70 - 1.30 mg/dL LAB CHEMISTRY METHOD 02/17/2024 6:42 AM [facility] eGFR 25(L) >=60 mL/min/1. 73m2 LAB CHEMISTRY METHOD 02/17/2024 6:42 AM EST [facility] Comment:Calculation based on the??Chronic Kidney Disease Epidemiology Collaboration (CKD-EPI) equation refit??without adjustment for race. BUN/Creatinine Ratio 24.6 LAB CHEMISTRY METHOD 02/17/2024 6:42 AM [facility] Calcium 8.7 8.5 - 10.5 mg/dL LAB CHEMISTRY METHOD 02/17/2024 6:42 AM [facility] Blood Venous blood specimen / Unknown Venipuncture / Unknown 02/17/2024 5:40 AM EST 02/17/2024 6:14 AM EST Jordon Julian MD LAB BLOOD ORDERABLE S [facility] [address] [place] [address], * (ABNORMAL) Urine culture (02/16/2024 9:18 PM EST) Culture, Urine >100,000 CFU/mL Escherichia coli(A) CELIO 02/18/2024 9:51 AM EST [facility] Urine Urine specimen obtained by clean catch procedure / Unknown Non-blood Collection / Unknown 02/16/2024 9:18 PM EST 02/16/2024 9:23 PM EST Narrative Organism Antibiotic Method Susceptibility Escherichia coli Amoxicillin/Clavulanate CELIO 4 ug/ml: Susceptible Escherichia coli Ampicillin/Sulbactam CELIO 4 ug/ml: Susceptible Escherichia coli Piperacillin/Tazobactam CELIO <=4 ug/ml: Susceptible Escherichia coli Cefazolin (Urine) CELIO 2 ug/ml: Susceptible Escherichia coli Cefoxitin CELIO <=4 ug/ml: Susceptible Escherichia coli Ceftazidime CELIO <=0.5 ug/ml: Susceptible Escherichia coli Ceftriaxone CELIO <=0.25 ug/ml: Susceptible Escherichia coli Cefepime CELIO <=0.12 ug/ml: Susceptible Escherichia coli Meropenem CELIO <=0.25 ug/ml: Susceptible Escherichia coli Amikacin CELIO 2 ug/ml: Susceptible Escherichia coli Gentamicin CELIO <=1 ug/ml: Susceptible Escherichia coli Ciprofloxacin CELIO <=0.06 ug/ml: Susceptible Escherichia coli Levofloxacin CELIO <=0.12 ug/ml: Susceptible Escherichia coli Nitrofurantoin CELIO <=16 ug/ml: Susceptible Escherichia coli Trimethoprim/Sulfamethoxazole CELIO <=20 ug/ml: Susceptible Jordon Julian MD LAB MICROBIOLOGY - GENERAL ORDERABLES [facility] [address] [place] [address], * (ABNORMAL) Urinalysis with reflex microscopic (02/16/2024 7:41 PM EST) Specific [place] Urine 1.010 1.003 - 1.030 LAB URINALYSIS - AUTOMATED METHOD 02/16/2024 8:30 PM EST [facility] pH, Urine 7.0 5.0 - 8.0 pH LAB URINALYSIS - AUTOMATED METHOD 02/16/2024 8:30 PM [facility] Leukocytes, Urine Large(A) Negative LAB URINALYSIS - AUTOMATED METHOD 02/16/2024 8:30 PM [facility] Nitrite, Urine Negative Negative LAB URINALYSIS - AUTOMATED METHOD 02/16/2024 8:30 PM [facility] Protein, Urine 100(A) <=Trace mg/dL LAB URINALYSIS - AUTOMATED METHOD 02/16/2024 8:30 PM [facility] Glucose, Urine Negative Negative mg/dL LAB URINALYSIS - AUTOMATED METHOD 02/16/2024 8:30 PM [facility] Ketones, Urine Negative Negative mg/dL LAB URINALYSIS - AUTOMATED METHOD 02/16/2024 8:30 PM [facility] Urobilinogen, Urine 0.2 0.2 - 1.0 mg/dL LAB URINALYSIS - AUTOMATED METHOD 02/16/2024 8:30 PM [facility] Bilirubin, Urine Negative Negative LAB URINALYSIS - AUTOMATED METHOD 02/16/2024 8:30 PM [facility] Blood, Urine Negative Negative LAB URINALYSIS - AUTOMATED METHOD 02/16/2024 8:30 PM [facility] RBC, Urine 3.5 0 - 4 /HPF LAB URINALYSIS - AUTOMATED METHOD 02/16/2024 8:30 PM [facility] WBC, Urine 171.5(H) 0 - 4 /HPF LAB URINALYSIS - AUTOMATED METHOD 02/16/2024 8:30 PM [facility] Squamous Epithelial, Urine 2 0 - 60 /LPF LAB URINALYSIS - AUTOMATED METHOD 02/16/2024 8:30 PM [facility] Bacteria, Urine Few(A) Negative /HPF LAB URINALYSIS - AUTOMATED METHOD 02/16/2024 8:30 PM [facility] Hyaline Casts, Urine 0.8 0 - 3 /LPF LAB URINALYSIS - AUTOMATED METHOD 02/16/2024 8:30 PM [facility] Urine Urine specimen obtained by clean catch procedure / Unknown Non-blood Collection / Unknown 02/16/2024 7:41 PM EST 02/16/2024 8:01 PM EST Min Alexis MD LAB URINE ORDERABLES [facility] [address] [place] [address], * Solano urine culture tube (02/16/2024 7:41 PM EST) Only the most recent of3 resultswithin the time period is included. Extra Tube Hold for add-ons. 02/16/2024 10:01 PM EST [facility] Comment:Auto resulted. Urine Urine specimen obtained by clean catch procedure / Unknown 02/16/2024 7:41 PM EST 02/16/2024 8:02 PM EST Min Alexis MD LAB URINE ORDERABLES [facility] ([facility]) [facility] [address] [place] [address], * XR Chest 1 View (02/16/2024 6:10 PM EST) Only the most recent of5 resultswithin the time period is included. Anatomical Region Laterality Modality Body Radiographic Telma ging 02/17/2024 10:0 8 AM EST Impressions 02/17/2024 10:09 AM EST Mildly hypoventilatory exam. ??No acute findings. -------- FINAL REPORT -------- Dictated By: Adal Lee Dictated Date: 02/17/2024 10:08 ET Assigned Physician: Adal Lee Reviewed and Electronically Signed By: Adal Lee Signed Date: 02/17/2024 10:09 ET Workstation ID: [id number] Transcribed By: Self Edit Transcribed Date: 02/17/2024 10:08 ET Narrative 02/17/2024 10:09 AM EST AP view of the chest, 02/16/2024. HISTORY: chest pain. COMPARISON: 02/02/2024. FINDINGS: Mildly hypoventilatory inspiration effort. ??Elevated left hemidiaphragm. ??Patchy bibasilar opacities, likely atelectasis. ??No pneumothorax. ??No visible pleural effusion. ??No pulmonary edema. ??Atherosclerotic ulcerations of the aorta. ??Osteopenia and degenerative changes of the spine. Procedure Note Adal Lee MD - 02/17/2024 AP view of the chest, 02/16/2024. HISTORY: chest pain. COMPARISON: 02/02/2024. FINDINGS: Mildly hypoventilatory inspiration effort. Elevated left hemidiaphragm.Patchy bibasilar opacities, likely atelectasis. No pneumothorax. Novisible pleural effusion. No pulmonary edema. Atheroscleroticulcerations of the aorta. Osteopenia and degenerative changes of thespine. IMPRESSION: Mildly hypoventilatory exam. No acute findings. -------- FINAL REPORT -------- Dictated By: Adal Lee Dictated Date: 02/17/2024 10:08 ET Assigned Physician: Adal Lee Reviewed and Electronically Signed By: Adal Lee Signed Date: 02/17/2024 10:09 ET Workstation ID: [id number] Transcribed By: Self Edit Transcribed Date: 02/17/2024 10:08 ET Min Alexis MD IMG XR PROCEDURES * 12-Lead ECG (02/16/2024 5:31 PM EST) Only the most recent of4 resultswithin the time period is included. Ventricular Rate ECG 55 BPM GEMUSE Atrial Rate 55 BPM GEMUSE P-R Interval 124 ms GEMUSE QRS Duration 88 ms GEMUSE Q-T Interval 446 ms GEMUSE QTc 426 ms GEMUSE P Wave Jefferson -18 degrees GEMUSE R Jefferson -4 degrees GEMUSE T Jefferson 33 degrees GEMUSE ECG Interpretation Sinus bradycardia When compared with ECG of 03-FEB-2024 17:27, Sinus rhythm has replaced Atrial fibrillation Vent. rate has decreased BY ??45 BPM Confirmed by YESSICA LINDSEY ([id number]) on 02/16/2024 9:47:32 PM GEMUSE 02/16/2024 5:31 PM EST 02/16/2024 9:47 PM EST Min Alexis MD ECG ORDERABLES GEMUSE * Troponin I high sensitivity (02/16/2024 5:24 PM EST) Only the most recent of6 resultswithin the time period is included. Pathologist [facility] High Sensitivity Troponin I 19 <=79 ng/L LAB CHEMISTRY METHOD 02/16/2024 5:57 PM EST [facility] Blood Venous blood specimen / Unknown Venipuncture / Unknown 02/16/2024 5:24 PM EST 02/16/2024 5:33 PM EST Narrative [facility] - 02/16/2024 5:57 PM EST High levels of biotin in samples may falsely decrease hsTroponin values. ??Use caution when interpreting hsTroponin results in patients taking biotin who exhibit renal impairment (eGFR <60) or in patients taking more than 20 mg/day of biotin. Min Alexis MD LAB BLOOD ORDERABLES Performing Organization Address [facility]/ZIP Co de Phone Number [facility] [address] [place] [address], [place] [phone] * ECG-Outside (02/16/2024) Only the most recent of2 resultswithin the time period is included. Provider Pilo TREVINO ECG ORDERABLES * Lavender tube (02/11/2024 10:37 AM EST) [facility] Extra Tube Hold for add-ons. 02/11/2024 12:01 PM EST [facility] Comment:Auto resulted. Blood Venous blood specimen / Unknown Venipuncture / Unknown 02/11/2024 10:37 AM EST 02/11/2024 10:58 AM EST Pema Robles MD LAB BLOOD ORDERABLES Performing Organization Address City/[facility]/ZIP Co de Phone Number [facility] [address] [place] [address], [place] [phone] * (ABNORMAL) Activated partial thromboplastin time (02/06/2024 5:27 AM EST) Only the most recent of2 resultswithin the time period is included. Pathologist [facility] aPTT 22.5(L) 24.1 - 39.3 sec LAB COAGULATION METHOD 02/06/2024 7:04 AM EST [facility] Blood Venous blood specimen / Unknown Venipuncture / Unknown 02/06/2024 5:27 AM EST 02/06/2024 6:45 AM EST Richard Riley MD LAB BLOOD ORDERABLES Performing Organization Address [facility] Co de Phone Number [facility] [address] [place] [address], [place] [phone] * Prothrombin time with INR (02/06/2024 5:27 AM EST) Only the most recent of4 resultswithin the time period is included. [facility] Protime 13.5 10.6 - 13.9 sec LAB COAGULATION METHOD 02/06/2024 7:04 AM EST [facility] INR 1.1 LAB COAGULATION METHOD 02/06/2024 7:04 AM EST [facility] Blood Venous blood specimen / Unknown Venipuncture / Unknown 02/06/2024 5:27 AM EST 02/06/2024 6:45 AM EST Richard Riley MD LAB BLOOD ORDERABLES Performing Organization Address City/[facility]/ZIP Co de Phone Number [facility] [address] [place] [address], [place] [phone] * Aldosterone (02/05/2024 1:13 AM EST) Pathologist [facility] Aldosterone 38.9 ng/dL 02/07/2024 7:11 PM EST [facility] Comment: REFERENCE RANGE: Upright ?<= 39.2 ng/dL ?? Supine ? <= 23.2 ng/dL Test performed at [facility], [address] [place], [place] ??[address] ? [phone] Tiffani Montero MD, PhD - [employer] Blood Venous blood specimen / Unknown Venipuncture / Unknown 02/05/2024 1:13 AM EST 02/05/2024 1:22 AM EST Richard Riley MD LAB BLOOD ORDERABLES Performing Organization Address City/[facility]/ZIP Co de Phone Number [facility] [address] [place] [address] * (ABNORMAL) Renin direct assay (02/05/2024 12:34 AM EST) Direct Renin 59.5(H) 3.1 - 57.1 pg/mL 02/08/2024 9:01 PM EST [facility] Comment: Test performed at [facility], [address] [place], [place] ??[address] ? [phone] Tiffani Montero MD, PhD - Hub Cutter Blood Venous blood specimen / Unknown Venipuncture / Unknown 02/05/2024 12:34 AM EST 02/05/2024 1:[address] Young MD LAB BLOOD ORDERABLES Performing Organization Address [facility] Co de Phone Number [facility] [address] [place] [address] * Vascular US duplex renal artery/venous bilateral (02/04/2024 10:49 AM EST) Anatomical Region Laterality Modality Vascular, Abdomen Ultrasound 02/04/2024 12:5 5 PM EST Narrative 02/04/2024 1:09 PM EST INDICATION: Uncontrolled hypertension, renal insufficiency. FINDINGS: Renal ultrasound was obtained with Doppler evaluation. No prior studies are available for comparison. Right kidney measures 9.7 cm in length. Left kidney measures 8.7 cm. There is normal cortical thickness and echogenicity. There is no evidence of hydronephrosis. 1.5 cm and 2.7 cm right renal cyst. 8.7 cm mildly complex collection in the right adrenal region likely corresponds to hematoma as noted on prior recent CT imaging. Doppler evaluation is limited with inability of patient to hold her breath long enough for evaluation. Acceleration times and resistive indices could not be obtained. Proximal renal artery velocities cannot be obtained. Normal velocities in the mid to distal vessel on the right side (up to 82 cm/s) without elevated renal to aortic ratio (1.28). Poorly visualized left renal artery velocity within the mid vessel is normal (88 cm/s) also with normal renal to aortic ratio (1.37). CONCLUSION: Renal ultrasound demonstrates normal kidneys bilaterally without hydronephrosis. Doppler evaluation is basically nondiagnostic. -------- FINAL REPORT -------- Dictated By: Anisa Whitfield Dictated Date: 02/04/2024 12:55 ET Assigned Physician: Anisa Whitfield Reviewed and Electronically Signed By: Anisa Whitfield Signed Date: 02/04/2024 13:09 ET Workstation ID: [id number] Transcribed By: Self Edit Transcribed Date: 02/04/2024 12:55 ET Procedure Note Anisa Whitfield MD - 02/04/2024 INDICATION: Uncontrolled hypertension, renal insufficiency. FINDINGS: Renal ultrasound was obtained with Doppler evaluation. No priorstudies are available for comparison. Right kidney measures 9.7 cm in length. Left kidney measures 8.7 cm. Thereis normal cortical thickness and echogenicity. There is no evidence ofhydronephrosis. 1.5 cm and 2.7 cm right renal cyst. 8.7 cm mildly complex collection in the right adrenal region likelycorresponds to hematoma as noted on prior recent CT imaging. Doppler evaluation is limited with inability of patient to hold her breathlong enough for evaluation. Acceleration times and resistive indices couldnot be obtained. Proximal renal artery velocities cannot be obtained.Normal velocities in the mid to distal vessel on the right side (up to 82cm/s) without elevated renal to aortic ratio (1.28). Poorly visualizedleft renal artery velocity within the mid vessel is normal (88 cm/s) alsowith normal renal to aortic ratio (1.37). CONCLUSION: Renal ultrasound demonstrates normal kidneys bilaterally withouthydronephrosis. Doppler evaluation is basically nondiagnostic. -------- FINAL REPORT -------- Dictated By: Anisa Whitfield Dictated Date: 02/04/2024 12:55 ET Assigned Physician: Anisa Whitfield Reviewed and Electronically Signed By: Anisa Whitfield Signed Date: 02/04/2024 13:09 ET Workstation ID: [id number] Transcribed By: Self Edit Transcribed Date: 02/04/2024 12:55 ET Quyen Griffiths MD CV VASCULAR PROCEDUR ES * (ABNORMAL) Phosphorus (02/04/2024 4:12 AM EST) Only the most recent of10 resultswithin the time period is included. [facility] Phosphorus 5.5(H) 2.5 - 4.5 mg/dL LAB CHEMISTRY METHOD 02/04/2024 4:48 AM EST [facility] Blood Venous blood specimen / Unknown Venipuncture / Unknown 02/04/2024 4:12 AM EST 02/04/2024 4:28 AM EST Maria Guadalupe HARVEY LAB BLOOD ORDERABLES [facility] [address] [place] [address], * (ABNORMAL) Venous blood gas (02/04/2024 4:12 AM EST) Only the most recent of2 resultswithin the time period is included. pH, Alex 7.42 7.32 - 7.42 pH 02/04/2024 4:35 AM EST [facility] pCO2, Alex 56(H) 41 - 51 mmHg 02/04/2024 4:35 AM EST [facility] pO2, Alex 47(H) 25 - 40 mmHg 02/04/2024 4:35 AM EST [facility] HCO3, Venous 32.4(H) 22.0 - 26.0 mmol/L 02/04/2024 4:35 AM EST [facility] O2 Sat, Alex 80.8 % 02/04/2024 4:35 AM EST [facility] Base Excess, Alex 10.1(H) -2.0 - 2.0 mmol/L 02/04/2024 4:35 AM EST [facility] Blood Venous blood specimen / Unknown Venipuncture / Unknown 02/04/2024 4:12 AM EST 02/04/2024 4:27 AM EST Maria Guadalupe HARVEY LAB BLOOD ORDERABLES [facility] ([facility]) [facility] [address] [place] [address], [place] [phone] * TRANSTHORACIC ECHOCARDIOGRAM (TTE) COMPLETE W/ CONTRAST (02/03/2024 11:47 AM EST) Left Atrium Minor Jefferson 6.8 cm CV PACS Left Atrium Major Jefferson 6.9 cm CV PACS LA Area Sys (A2C) 23 cm2 CV PACS LA Area Sys (A4C) 21 cm2 CV PACS LA Volume (BP) 58 mL CV PACS RA Area 13.7 cm2 CV PACS RA 2D Volume 33 mL CV PACS AV Mean Gradient 3 mmHg CV PACS AV Mean Gradient 3 mmHg CV PACS AV Mean Gradient 3 mmHg CV PACS Ao VTI 23.4 cm CV PACS AV Peak Pelon 1.2 m/s CV PACS AV Peak Gradient 6 mmHg CV PACS AV Area Continuity Equation 2.9 cm2 CV PACS AV Area Peak Velocity 2.8 cm2 CV PACS Aortic Sinus Valsalva 3.4 cm CV PACS Ascending Aorta 3.3 cm CV PACS IVC Proximal 1.8 cm CV PACS IVSD 0.9 0.6 - 1.0 cm CV PACS LVIDD 5.1 4.2 - 5.8 cm CV PACS LVIDS 3.3 2.5 - 4.0 cm CV PACS LVOT Diameter 2.0 cm CV PACS LVOT Mean Pelon 0.7 m/s CV PACS LVOT Mean Grad 2 mmHg CV PACS LVOT Mean Grad 2 mmHg CV PACS LVOT Peak VTI 21.9 cm CV PACS LVOT Peak Pelon 1.1 m/s CV PACS LVOT Peak Gradient 4 mmHg CV PACS LVPWD 0.9 0.6 - 1.0 cm CV PACS MV E' Tissue Velocity Lateral 8 cm/s CV PACS MV E' Tissue Velocity Septal 6 cm/s CV PACS LVOT Area 3.1 cm2 CV PACS LVOT Stroke Volume 69 mL CV PACS MV Deceleration Nance 8.4 m/s2 CV PACS E Wave Deceleration Time 138 119 - 242 ms CV PACS MV PHT 41 ms CV PACS MV Peak A Pelon 0.82 m/s CV PACS MV Peak E Pelon 1.27 m/s CV PACS MV Mean Gradient 2 mmHg CV PACS MV Mean Gradient 2 mmHg CV PACS MV Mean Gradient 2 mmHg CV PACS MV VTI 28.9 cm CV PACS Mitral Valve Max Velocity 1.4 m/s CV PACS MV Peak Gradient 8 mmHg CV PACS MV Area PHT 5.4 cm2 CV PACS MV Area Continuity Equation 2.4 cm2 CV PACS PV Acceleration Time 134 ms CV PACS PV Mean Gradient 1 mmHg CV PACS PV VTI 14.3 cm CV PACS PV Peak Velocity 0.8 m/s CV PACS PV Peak Gradient 2 mmHg CV PACS RV Diastolic Basal Dimension 3.4 2.5 - 4.1 cm CV PACS RV S' 8 cm/s CV PACS TAPSE 21 mm CV PACS E/E' Ratio Septal 21 CV PACS E/E' Ratio Averaged 19 CV PACS LVOT Stroke Index 33 mL/m2 CV PACS Relative Wall Thickness ratio 0.35 CV PACS LVOT:AV VTI Index 0.94 CV PACS FS 35 % CV PACS LV Mass 2D 164 g CV PACS Ascending Aorta Index 1.59 cm/m2 CV PACS MV VTI:LVOT VTI ratio 1.3 CV PACS LVOT flow 220 mL/s CV PACS RA 2D Volume Index 16 mL/m2 CV PACS JOSIAH Index (VTI) 1.42 cm2/m2 CV PACS JOSIAH Index (Pk Pelon) 1.35 cm2/m2 CV PACS LVIDD Index 2.46 cm/m2 CV PACS LVIDS Index 1.59 cm/m2 CV PACS AV Velocity Ratio 0.92 CV PACS E/A Ratio 1.5 CV PACS E/E' Ratio Lateral 16 CV PACS LA Volume Index (BP) 28 mL/m2 CV PACS LV Mass Index 2D 79 g/m2 CV PACS BSA 2.08 m2 CV PACS Anatomical Region Laterality Modality Ultrasound Narrative 02/03/2024 2:02 PM EST ?Left ventricle cavity size is normal. Left ventricular systolic function is in the normal range with an ejection fraction of 55-60%.No regional LV wall motion abnormalities noted.There is Grade II (moderate) diastolic dysfunction. ?Right ventricle cavity is normal. Right ventricular systolic function is normal. ?No hemodynamically significant valvular disease. ?No prior study for comparison. Left Ventricle Left ventricle cavity size is normal. There is mild hypertrophy. Systolic function is normal with an ejection fraction of 55-60%. There are no regional LV wall motion abnormalities. There is Grade II (moderate) diastolic dysfunction. Right Ventricle Right ventricle cavity appears normal. Systolic function is normal. Left Atrium Left atrium cavity size is normal. Right Atrium Right atrium cavity is normal. IVC/SVC Inferior vena cava structure is normal. RA pressures is estimated to be 3 mmHg (IVC diameter <21 mm and decreases >50% during inspiration). Mitral Valve The leaflets are mildly thickened. There is mild annular calcification. There is trace regurgitation. There is no evidence of mitral valve stenosis. Tricuspid Valve Tricuspid valve structure is normal. There is no significant regurgitation. There is no evidence of tricuspid valve stenosis. Cannot assess RVSP. Aortic Valve The aortic valve is trileaflet. The leaflets are mildly thickened and exhibit normal excursion. There is no regurgitation or stenosis. Pulmonic Valve There is no regurgitation or stenosis. Ascending Aorta The aorta appears normal in size. Pericardium Pericardium appears normal. There is no pericardial effusion. Study Details Overall the study quality was suboptimal. Definity contrast was given to enhance imaging. Jordon Julian MD CV ECHO PROCEDURES * Hemoglobin A1c (02/03/2024 5:25 AM EST) Hemoglobin A1C 6.3 <6.5 % LAB CHEMISTRY METHOD 02/05/2024 7:39 PM [facility] Mean Bld Glu Estim. 134 mg/dL LAB CHEMISTRY METHOD 02/05/2024 7:39 PM [facility] Blood Venous blood specimen / Unknown Venipuncture / Unknown 02/03/2024 5:25 AM EST 02/03/2024 6:34 AM EST Quyen Griffiths MD LAB BLOOD ORDERABLES [facility] [address] [place] [address], * (ABNORMAL) Comprehensive metabolic panel (02/03/2024 5:25 AM EST) Only the most recent of3 resultswithin the time period is included. Sodium 127(L) 133 - 145 mmol/L LAB CHEMISTRY METHOD 02/03/2024 7:16 AM [facility] Potassium 4.0 3.5 - 5.5 mmol/L LAB CHEMISTRY METHOD 02/03/2024 7:16 AM [facility] Chloride 84(L) 96 - 110 mmol/L LAB CHEMISTRY METHOD 02/03/2024 7:16 AM [facility] CO2 29 21 - 32 mmol/L LAB CHEMISTRY METHOD 02/03/2024 7:16 AM [facility] Anion Gap 14(H) 3 - 11 LAB CHEMISTRY METHOD 02/03/2024 7:16 AM [facility] Glucose 220(H) 70 - 100 mg/dL LAB CHEMISTRY METHOD 02/03/2024 7:16 AM [facility] BUN 76(H) 5 - 25 mg/dL LAB CHEMISTRY METHOD 02/03/2024 7:16 AM [facility] Creatinine 3.88(H) 0.70 - 1.30 mg/dL LAB CHEMISTRY METHOD 02/03/2024 7:16 AM [facility] eGFR 15(L) >=60 mL/min/1. 73m2 LAB CHEMISTRY METHOD 02/03/2024 7:16 AM [facility] Comment:Calculation based on the??Chronic Kidney Disease Epidemiology Collaboration (CKD-EPI) equation refit??without adjustment for race. BUN/Creatinine Ratio 19.6 LAB CHEMISTRY METHOD 02/03/2024 7:16 AM [facility] Calcium 7.4(L) 8.5 - 10.5 mg/dL LAB CHEMISTRY METHOD 02/03/2024 7:16 AM [facility] AST (SGOT) 27 10 - 42 unit/L LAB CHEMISTRY METHOD 02/03/2024 7:16 AM [facility] ALT (SGPT) 48 10 - 60 unit/L LAB CHEMISTRY METHOD 02/03/2024 7:16 AM [facility] Alkaline Phosphatase 89 42 - 121 unit/L LAB CHEMISTRY METHOD 02/03/2024 7:16 AM [facility] Total Protein 5.9(L) 6.0 - 8.0 g/dL LAB CHEMISTRY METHOD 02/03/2024 7:16 AM [facility] Albumin 3.2 3.2 - 5.0 g/dL LAB CHEMISTRY METHOD 02/03/2024 7:16 AM [facility] Total Bilirubin 0.7 0.0 - 1.4 mg/dL LAB CHEMISTRY METHOD 02/03/2024 7:16 AM [facility] Blood Venous blood specimen / Unknown Venipuncture / Unknown 02/03/2024 5:25 AM EST 02/03/2024 6:34 AM EST Quyen Griffiths MD LAB BLOOD ORDERABLES [facility] [address] [place] [address], * Transfuse RBC (02/02/2024 11:59 PM EST) Only the most recent of2 resultswithin the time period is included. Quyen Griffiths MD BLOOD TRANSFUSION OR DERABLES * CT Chest wo Contrast (02/02/2024 4:19 PM EST) Anatomical Region Laterality Modality Body Computed Tomogra phy 02/02/2024 5:04 PM EST Impressions 02/02/2024 5:04 PM EST 1. Moderate bilateral pleural effusions. Interstitial edema. 2. Significant abnormalities within the upper abdomen, reported separately. 3. There are 2 approximately 6 mm left upper lobe nodules. Recommend follow-up per Fleischner criteria. This document has been electronically signed by: Katharine Santana MD on 02/02/2024 17:04:12 Narrative 02/02/2024 5:[address] chest without contrast Comparison: None Findings: The heart is normal size. Prior thyroidectomy. Numerous small mediastinal lymph nodes. No acute mediastinal abnormality. Moderate bilateral pleural effusions, right larger than left. Heterogeneous ground-glass opacities within the bilateral lungs, predominating centrally. Extensive septal thickening is present bilaterally. There is dependent and compressive atelectasis within the bilateral lower lobes adjacent to the pleural fluid collections. Two small left upper lobe nodules each measuring 6 mm in greatest dimension. There are significant abnormalities within the upper abdomen, reported separately. No acute displaced fracture. Chronic compression fracture at T12. Procedure Note Mj-Katharine Santana MD - 02/02/2024 CT chest without contrast Comparison: None Findings: The heart is normal size. Prior thyroidectomy. Numerous small mediastinal lymph nodes. No acute mediastinal abnormality. Moderate bilateral pleural effusions, right larger than left. Heterogeneous ground-glass opacities within the bilateral lungs, predominating centrally. Extensive septal thickening is present bilaterally. There is dependent and compressive atelectasis within the bilateral lower lobes adjacent to the pleural fluid collections. Twosmall left upper lobe nodules each measuring 6 mm in greatest dimension. There are significant abnormalities within the upper abdomen, reported separately. No acute displaced fracture. Chronic compression fracture at T12. IMPRESSION: 1. Moderate bilateral pleural effusions. Interstitial edema. 2. Significant abnormalities within the upper abdomen, reported separately. 3. There are 2 approximately 6 mm left upper lobe nodules. Recommend follow-up per Fleischner criteria. This document has been electronically signed by: Katharine Santana MD on 02/02/2024 17:04:12 Quyne Griffiths MD IMG CT PROCEDURES * CT Abdomen Pelvis wo Contrast (02/02/2024 4:18 PM EST) Only the most recent of4 resultswithin the time period is included. Anatomical Region Laterality Modality Body Computed Tomogra phy 02/02/2024 4:59 PM EST Addenda Addendum by Katharine Baker MD on 02/02/2024 5:05 PM EST ADDENDUM: This report was discussed with Dannielle Hernandez RN on Feb 02, 2024 17:05:00 EST. This document has been electronically signed by: Katie Weber on 02/02/2024 17:05:18 Impressions 02/02/2024 4:59 PM EST 1. 10 cm right adrenal mass with adjacent extraperitoneal thickening. Suspect a hematoma, but neoplasm is also in the differential. 2. There are significant abnormalities at the level of the chest. These are reported separately. This document has been electronically signed by: Katharine Santana MD on 02/02/2024 16:59:13 Narrative 02/02/2024 4:[address] abdomen and pelvis without contrast Comparison: CT - ABDOMEN AND PELVIS C- CT - 12/31/2023 12:46 AM EDT Findings: Findings at the lung bases are reported separately. 10 x 7 x 6 cm heterogeneous right adrenal mass with significant interval increase in size since the prior exam. Density estimated at 52 Hounsfield units. Hyperdense thickening within the adjacent extraperitoneal space, new since the prior study small left adrenal nodule without change, compatible with an adenoma. Unremarkable liver and spleen. There are a couple of small kidney cysts. No calculus or hydronephrosis. Multiple tiny gallstones within the gallbladder. Colonic diverticulosis without diverticulitis. No bowel edema or obstruction. 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 Villa catheter within the urinary bladder. Unremarkable prostate. Appendicoliths within the appendix. No current evidence of appendicitis. Mild chronic compression fracture at T12. Procedure Note Katharine Baker MD - 02/02/2024 CT abdomen and pelvis without contrast Comparison: CT - ABDOMEN AND PELVIS C- CT - 12/31/2023 12:46 AM EDT Findings: Findings at the lung bases are reported separately. 10 x 7 x 6 cm heterogeneous right adrenal mass with significant interval increase in size since the prior exam. Density estimated at 52Hounsfield units. Hyperdense thickening within the adjacent extraperitoneal space, new since the prior study small left adrenal nodule without change, compatible with an adenoma. Unremarkable liver and spleen. There are a couple of small kidney cysts. No calculus or hydronephrosis. Multipletiny gallstones within the gallbladder. Colonic diverticulosis without diverticulitis. No bowel edema or obstruction. 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 Villa catheter within the urinary bladder. Unremarkable prostate. Appendicoliths within the appendix. No current evidence of appendicitis. Mild chronic compression fracture at T12. IMPRESSION: 1. 10 cm right adrenal mass with adjacent extraperitoneal thickening. Suspect a hematoma, but neoplasm is also in the differential. 2. There are significant abnormalities at the level of the chest. These are reported separately. This document has been electronically signed by: Katharine Santana MD on 02/02/2024 16:59:13 Quyen Griffiths MD IMG CT PROCEDURES * Type and screen (02/02/2024 8:59 AM EST) Only the most recent of3 resultswithin the time period is included. ABO Group O 02/02/2024 10:53 AM EST [facility] Rh Type Positive 02/02/2024 10:53 AM EST [facility] Antibody Screen Negative 02/02/2024 10:53 AM EST [facility] Blood Venous blood specimen / Unknown Venipuncture / Unknown 02/02/2024 8:59 AM EST 02/02/2024 9:05 AM EST Quyen Griffiths MD LAB BLOOD BANK TEST ORDERABLES [facility] [address] [place] [address], * Prepare RBC: 2 Units (02/02/2024 8:04 AM EST) [facility] Signature Product Code [id number] 02/02/2024 12:01 PM [facility] Unit Number [id number] 02/02/20 12:01 PM [facility] Crossmatch Compatible 02/02/2024 11:08 AM [facility] Dispense Status Transfused 02/02/2024 12:01 PM [facility] Unit ABO Rh OPOS 02/02/2024 12:01 PM [facility] Unit Expiration Date Time [id number] 02/02/2024 12:01 PM [facility] Unit Blood Type 5100 02/02/2024 12:01 PM [facility] Product Code [id number] 02/02/2024 4:54 PM [facility] Unit Number [id number] 02/02/20 4:54 PM [facility] Crossmatch Compatible 02/02/2024 11:10 AM [facility] Dispense Status Transfused 02/02/2024 4:54 PM [facility] Unit ABO Rh OPOS 02/02/2024 4:54 PM [facility] Unit Expiration Date Time [id number] 02/02/2024 4:54 PM [facility] Unit Blood Type 5100 02/02/2024 4:54 PM [facility] Blood Venous blood specimen / Unknown 02/02/2024 8:04 AM EST 02/02/2024 9:05 AM EST Quyen Griffiths MD BLOOD BANK PRODUCT O RDERABLES [facility] [address] [place] [address], * Vascular US duplex lower extremity venous right (02/02/2024 2:04 AM EST) Anatomical Region Laterality Modality Vascular, Abdomen Ultrasound 02/02/2024 9:20 AM EST Impressions 02/02/2024 9:20 AM EST NO RIGHT LOWER EXTREMITY DEEP VENOUS THROMBOSIS. -------- FINAL REPORT -------- Dictated By: GAURANG TEJEDA Dictated Date: 02/02/2024 09:20 ET Assigned Physician: GAURANG TEJEDA Reviewed and Electronically Signed By: GAURANG TEJEDA Signed Date: 02/02/2024 09:20 ET Workstation ID: [id number] Transcribed By: Self Edit Transcribed Date: 02/02/2024 09:20 ET Narrative 02/02/2024 9:20 AM EST PROCEDURE: VAS US DUPLEX LOWER EXT VENOUS RIGHT INDICATION: Edema, swelling TECHNIQUE: 2-D and color Doppler imaging of the right lower extremity venous vasculature with compression and augmentation maneuvers. COMPARISON: No priors available. FINDINGS: There is normal flow, compression, and augmentation from the common femoral through the popliteal vein. Visualized calf veins are patent. ??5 cm Ponce's cyst Procedure Note Gaurang Tejeda MD - 02/02/2024 PROCEDURE: VAS US DUPLEX LOWER EXT VENOUS RIGHT INDICATION: Edema, swelling TECHNIQUE: 2-D and color Doppler imaging of the right lower extremityvenous vasculature with compression and augmentation maneuvers. COMPARISON: No priors available. FINDINGS: There is normal flow, compression, and augmentation from the commonfemoral through the popliteal vein. Visualized calf veins are patent. 5cm Ponce's cyst IMPRESSION: NO RIGHT LOWER EXTREMITY DEEP VENOUS THROMBOSIS. -------- FINAL REPORT -------- Dictated By: GAURANG TEJEDA Dictated Date: 02/02/2024 09:20 ET Assigned Physician: GAURANG TEJEDA Reviewed and Electronically Signed By: GAURANG TEJEDA Signed Date: 02/02/2024 09:20 ET Workstation ID: [id number] Transcribed By: Self Edit Transcribed Date: 02/02/2024 09:20 ET Jordon Julian MD CV VASCULAR PROCEDU RES * Vascular US duplex lower extremity venous left (02/01/2024 10:39 PM EST) Anatomical Region Laterality Modality Vascular, Abdomen Ultrasound 02/02/2024 10:2 5 AM EST Impressions 02/02/2024 10:26 AM EST NO LEFT LOWER EXTREMITY DEEP VENOUS THROMBOSIS. -------- FINAL REPORT -------- Dictated By: GAURANG TEJEDA Dictated Date: 02/02/2024 10:25 ET Assigned Physician: GAURANG TEJEDA Reviewed and Electronically Signed By: GAURANG TEJEDA Signed Date: 02/02/2024 10:26 ET Workstation ID: [id number] Transcribed By: Self Edit Transcribed Date: 02/02/2024 10:25 ET Narrative 02/02/2024 10:26 AM EST PROCEDURE: VAS US DUPLEX LOWER EXT VENOUS LEFT INDICATION: Pain and swelling TECHNIQUE: 2-D and color Doppler imaging of the left lower extremity venous vasculature with compression and augmentation maneuvers. COMPARISON: No priors available. FINDINGS: There is normal flow, compression, and augmentation from the common femoral through the popliteal vein. Visualized calf veins are patent Procedure Note Gaurang Tejeda MD - 02/02/2024 PROCEDURE: VAS US DUPLEX LOWER EXT VENOUS LEFT INDICATION: Pain and swelling TECHNIQUE: 2-D and color Doppler imaging of the left lower extremityvenous vasculature with compression and augmentation maneuvers. COMPARISON: No priors available. FINDINGS: There is normal flow, compression, and augmentation from the commonfemoral through the popliteal vein. Visualized calf veins are patent IMPRESSION: NO LEFT LOWER EXTREMITY DEEP VENOUS THROMBOSIS. -------- FINAL REPORT -------- Dictated By: GAURANG TEJEDA Dictated Date: 02/02/2024 10:25 ET Assigned Physician: GAURANG TEJEDA Reviewed and Electronically Signed By: GAURANG TEJEDA Signed Date: 02/02/2024 10:26 ET Workstation ID: [id number] Transcribed By: Self Edit Transcribed Date: 02/02/2024 10:25 ET Jordon Julian MD CV VASCULAR PROCEDU RES * (ABNORMAL) B-type natriuretic peptide (02/01/2024 8:20 PM EST) Pathologist [facility] BNP 1,133(H) <=100 pcg/mL LAB CHEMISTRY METHOD 02/01/2024 9:20 PM EST [facility] Blood Venous blood specimen / Unknown Venipuncture / Unknown 02/01/2024 8:20 PM EST 02/01/2024 8:31 PM EST Quyen Griffiths MD LAB BLOOD ORDERABLES [facility] [address] [place] [address], * Cell count with reflex differential, body fluid (02/01/2024 1:49 PM EST) [facility] Body Fluid Total Nucleated Cells 12,857 /mm3 LAB HEMETOLOGY METHOD 02/01/2024 3:11 PM EST [facility] Body Fluid RBC 2,000 /mm3 LAB HEMETOLOGY METHOD 02/01/2024 3:11 PM EST [facility] Body Fluid Color Straw 02/01/2024 3:11 PM EST [facility] Body Fluid Clarity Cloudy 02/01/2024 3:11 PM EST [facility] Body Fluid Source Knee, Right 02/01/2024 3:11 PM EST [facility] Synovial Fluid Structure of right knee region / Unknown Non-blood Collection / Unknown 02/01/2024 1:49 PM EST 02/01/2024 1:56 PM EST Narrative [facility] - 02/01/2024 3:11 PM EST No reference ranges have been established for body fluids. Clinical correlation recommended. Evelina HARVEY LAB BODY FLUIDS AND STOOLS ORDERABLES Performing Organization Address City/[facility]/ZIP Co de Phone Number [facility] [address] [place] [address], * Culture body fluid with gram stain (02/01/2024 1:49 PM EST) Fluid Culture No growth LAB MICROBIOLOGY METHOD 02/04/2024 12:47 PM EST [facility] Gram Stain Result Few Polymorphonuclear leukocytes 02/04/2024 12:47 PM EST [facility] Gram Stain Result No Epithelial cells 02/04/2024 12:47 PM EST [facility] Gram Stain Result No organisms seen 02/04/2024 12:47 PM EST [facility] Synovial Fluid Structure of right knee region / Unknown Non-blood Collection / Unknown 02/01/2024 1:49 PM EST 02/01/2024 1:56 PM EST Eevlina HARVEY LAB MICROBIOLOGY - G ENERAL ORDERABLES Performing Organization Address [facility]/ZIP Co de Phone Number [facility] [address] [place] [address], [place] [phone] * Differential body fluid (02/01/2024 1:49 PM EST) Fluid Neutrophils % 79 % 02/01/2024 3:11 PM EST [facility] Fluid Lymphocytes % 3 % 02/01/2024 3:11 PM EST [facility] Fluid Monocytes/Macrop hages 14 % 02/01/2024 3:11 PM EST [facility] Fluid Eosinophils % 4 % 02/01/2024 3:11 PM EST [facility] Fluid Basophils % 0 % 02/01/2024 3:11 PM EST [facility] Fluid Other Cells % 0 % 02/01/2024 3:11 PM EST [facility] Synovial Fluid Structure of right knee region / Unknown Non-blood Collection / Unknown 02/01/2024 1:49 PM EST 02/01/2024 1:56 PM EST Narrative [facility] - 02/01/2024 3:11 PM EST No reference ranges have been established for body fluids. Clinical correlation recommended. Evelina HARVEY LAB BODY FLUIDS AND STOOLS ORDERABLES Performing Organization Address [facility]/ZIP Co de Phone Number [facility] [address] [place] [address], [place] [phone] * (ABNORMAL) Crystal identification, body fluid (02/01/2024 1:49 PM EST) Crystals, Fluid Calcium pyrophosphate dihydrate(A) No diagnostic crystals seen 02/01/2024 3:18 PM EST [facility] Synovial Fluid Non-blood Collection / Unknown 02/01/2024 1:49 PM EST 02/01/2024 1:56 PM EST Evelina HARVEY LAB BODY FLUIDS AND STOOLS ORDERABLES Performing Organization Address [facility]/ZIP Co de Phone Number [facility] [address] [place] [address], [place] [phone] * XR Knee 4+ Views Right (01/31/2024 1:10 PM EST) Anatomical Region Laterality Modality Lower Extremities, Knee Right Radiogra phic Imaging 01/31/2024 1:12 PM EST Impressions 01/31/2024 1:26 PM EST Small joint effusion. ??Mild degenerative changes and findings of chondrocalcinosis. -------- FINAL REPORT -------- Dictated By: Adal Lee Dictated Date: 01/31/2024 13:12 ET Assigned Physician: Adal Lee Reviewed and Electronically Signed By: Adal Lee Signed Date: 01/31/2024 13:26 ET Workstation ID: [id number] Transcribed By: Self Edit Transcribed Date: 01/31/2024 13:21 ET Narrative 01/31/2024 1:26 PM EST Multiple radiographs of the right knee, 01/31/2024 1:17 PM. HISTORY: infection, swollen right knee, effusion. COMPARISON: None. FINDINGS: The bones appear diffusely demineralized. ??Mild tricompartmental degenerative changes. ??Small joint effusion. ??Meniscal calcifications suggestive of chondrocalcinosis. ??Extensive atherosclerotic calcifications. Procedure Note Adal Lee MD - 01/31/2024 Multiple radiographs of the right knee, 01/31/2024 1:17 PM. HISTORY: infection, swollen right knee, effusion. COMPARISON: None. FINDINGS: The bones appear diffusely demineralized. Mild tricompartmentaldegenerative changes. Small joint effusion. Meniscal calcificationssuggestive of chondrocalcinosis. Extensive atheroscleroticcalcifications. IMPRESSION: Small joint effusion. Mild degenerative changes and findings ofchondrocalcinosis. -------- FINAL REPORT -------- Dictated By: Adal Lee Dictated Date: 01/31/2024 13:12 ET Assigned Physician: Adal Lee Reviewed and Electronically Signed By: Adal Lee Signed Date: 01/31/2024 13:26 ET Workstation ID: [id number] Transcribed By: Self Edit Transcribed Date: 01/31/2024 13:21 ET Quyen Griffiths MD IMG XR PROCEDURES * Urinalysis microscopic only (01/29/2024 4:54 PM EST) RBC, Urine 3.5 0 - 4 /HPF LAB URINALYSIS - AUTOMATED METHOD 01/29/2024 5:25 PM EST [facility] WBC, Urine 1.4 0 - 4 /HPF LAB URINALYSIS - AUTOMATED METHOD 01/29/2024 5:25 PM EST [facility] Squamous Epithelial, Urine 19 0 - 60 /LPF LAB URINALYSIS - AUTOMATED METHOD 01/29/2024 5:25 PM EST [facility] Bacteria, Urine Negative Negative /HPF LAB URINALYSIS - AUTOMATED METHOD 01/29/2024 5:25 PM [facility] Hyaline Casts, Urine 1.6 0 - 3 /LPF LAB URINALYSIS - AUTOMATED METHOD 01/29/2024 5:25 PM [facility] Urine Urine specimen obtained by clean catch procedure / Unknown Non-blood Collection / Unknown 01/29/2024 4:54 PM EST 01/29/2024 5:15 PM EST Richard Riley MD LAB URINE ORDERABLES Performing Organization Address [facility]/ZIP Co de Phone Number [facility] [address] [place] [address], * (ABNORMAL) Protein and creatinine with ratio, urine (01/29/2024 4:54 PM EST) Protein, Urine 113 mg/dL LAB CHEMISTRY METHOD 01/29/2024 5:42 PM EST [facility] Prot/Creat, Ur 1.77(H) <=0.20 mg/mg creat LAB CHEMISTRY METHOD 01/29/2024 5:42 PM EST [facility] Creatinine, Urine 64.0 mg/dL LAB CHEMISTRY METHOD 01/29/2024 5:42 PM EST [facility] Urine Urine specimen obtained by clean catch procedure / Unknown Non-blood Collection / Unknown 01/29/2024 4:54 PM EST 01/29/2024 5:13 PM EST Richard Riley MD LAB URINE ORDERABLES Performing Organization Address City/[facility]/ZIP Co de Phone Number [facility] [address] [place] [address], * Sodium, urine, random (01/29/2024 4:54 PM EST) Sodium, Ur 68 mmol/L LAB CHEMISTRY METHOD 01/29/2024 5:42 PM EST [facility] Urine Urine specimen obtained by clean catch procedure / Unknown Non-blood Collection / Unknown 01/29/2024 4:54 PM EST 01/29/2024 5:13 PM EST Richard Riley MD LAB URINE ORDERABLES Performing Organization Address City/[facility]/ZIP Co de Phone Number [facility] [address] [place] [address], [place] [phone] * Creatinine, urine, random (01/29/2024 4:54 PM EST) Creatinine, Urine 66.0 mg/dL LAB CHEMISTRY METHOD 01/29/2024 5:45 PM EST [facility] Urine Urine specimen from urethra / Unknown Non-blood Collection / Unknown 01/29/2024 4:54 PM EST 01/29/2024 5:13 PM EST Richard Riley MD LAB URINE ORDERABLES Performing Organization Address [facility]/ZIP Co de Phone Number [facility] [address] [place] [address], [place] [phone] * (ABNORMAL) Sedimentation rate (01/27/2024 6:09 AM EST) Sed Rate 28(H) 0 - 20 mm/hr LAB HEMETOLOGY METHOD 01/27/2024 4:08 PM EST [facility] Blood Venous blood specimen / Unknown Venipuncture / Unknown 01/27/2024 6:09 AM EST 01/27/2024 7:[address] Young MD LAB BLOOD ORDERABLES [facility] [address] [place] [address], [place] [phone] * (ABNORMAL) C-reactive protein (01/27/2024 6:09 AM EST) [facility] C-Reactive Protein 4.58(H) <=0.50 mg/dL LAB CHEMISTRY METHOD 01/27/2024 4:17 PM EST [facility] Blood Venous blood specimen / Unknown Venipuncture / Unknown 01/27/2024 6:09 AM EST 01/27/2024 7:[address] Young MD LAB BLOOD ORDERABLES Performing Organization Address [facility]/ZIP Co de Phone Number [facility] [address] [place] [address], * Soluble transferrin receptor (01/26/2024 5:16 AM EST) [facility] Soluble Transferrin Receptor 17.4 12.2 - 27.3 nmol/L 01/31/2024 3:05 PM EST [facility] Blood Venous blood specimen / Unknown Venipuncture / Unknown 01/26/2024 5:16 AM EST 01/26/2024 5:24 AM EST Narrative [facility] - 01/31/2024 3:05 PM EST Performed at: ??01 - [facility] [address] ??[id number] [employer]: Andrew Hernandez MD, Phone: ??[phone] Juliet Shaw NP LAB BLOOD ORDERA BLES [facility] * (ABNORMAL) Iron and TIBC (01/26/2024 5:16 AM EST) [facility] Iron 55 50 - 160 mcg/dL LAB CHEMISTRY METHOD 01/26/2024 5:53 AM EST [facility] TIBC 171(L) 250 - 450 mcg/dL LAB CHEMISTRY METHOD 01/26/2024 5:53 AM EST [facility] Iron Saturation 32 20 - 50 % LAB CHEMISTRY METHOD 01/26/2024 5:53 AM EST [facility] Blood Venous blood specimen / Unknown Venipuncture / Unknown 01/26/2024 5:16 AM EST 01/26/2024 5:25 AM EST Juliet Shaw GROUP BILLING COORDINATOR LAB BLOOD ORDERA BLES [facility] [address] [place] [address], [place] [phone] * Folate (01/26/2024 5:16 AM EST) Pathologist [facility] Folate 10.3 2.8 - 17.0 ng/ml LAB CHEMISTRY METHOD 01/26/2024 6:17 AM EST [facility] Blood Venous blood specimen / Unknown Venipuncture / Unknown 01/26/2024 5:16 AM EST 01/26/2024 5:25 AM EST Juliet Shaw GROUP BILLING COORDINATOR LAB BLOOD ORDERA BLES Performing Organization Address [facility]/ZIP Co de Phone Number [facility] [address] [place] [address], [place] [phone] * Ferritin (01/26/2024 5:16 AM EST) [facility] Ferritin 263 26 - 388 ng/mL LAB CHEMISTRY METHOD 01/26/2024 6:17 AM EST [facility] Blood Venous blood specimen / Unknown Venipuncture / Unknown 01/26/2024 5:16 AM EST 01/26/2024 5:25 AM EST Juliet Shaw GROUP BILLING COORDINATOR LAB BLOOD ORDERA BLES Performing Organization Address City/[facility]/ZIP Co de Phone Number [facility] [address] [place] [address], * Vitamin B12 (01/26/2024 5:16 AM EST) [facility] Vitamin B-12 538 250 - 900 pcg/mL LAB CHEMISTRY METHOD 01/26/2024 6:17 AM EST [facility] Blood Venous blood specimen / Unknown Venipuncture / Unknown 01/26/2024 5:16 AM EST 01/26/2024 5:25 AM EST Juliet Shaw GROUP BILLING COORDINATOR LAB BLOOD ORDERA BLES Performing Organization Address City/[facility]/ZIP Co de Phone Number [facility] [address] [place] [address], * (ABNORMAL) Calcium, ionized (01/26/2024 5:16 AM EST) Only the most recent of5 resultswithin the time period is included. [facility] Calcium Ionized 4.28(L) 4.50 - 5.30 mg/dL 01/26/2024 5:34 AM EST [facility] Blood Venous blood specimen / Unknown Venipuncture / Unknown 01/26/2024 5:16 AM EST 01/26/2024 5:24 AM EST Juliet Shaw GROUP BILLING COORDINATOR LAB BLOOD ORDERA BLES [facility] [address] [place] [address], [place] [phone] * Vancomycin, trough Please draw 30-60 mn prior to 1500 dose on 01/24 (01/25/2024 3:00 PM EST) [facility] Vancomycin Trough 17.3 10.0 - 20.0 mcg/mL LAB CHEMISTRY METHOD 01/25/2024 4:04 PM EST [facility] Blood Venous blood specimen / Unknown Venipuncture / Unknown 01/25/2024 3:00 PM EST 01/25/2024 3:30 PM EST Papi HARVEY LAB BLOOD ORDERABLES Performing Organization Address [facility]/ZIP Co de Phone Number [facility] [address] [place] [address], [place] [phone] * Light blue tube (01/25/2024 4:45 AM EST) Extra Tube Hold for add-ons. 01/25/2024 7:01 AM EST [facility] Comment:Auto resulted. Blood Venous blood specimen / Unknown 01/25/2024 4:45 AM EST 01/25/2024 5:23 AM EST Aylin Louis MD LAB BLOOD ORDERABLES Performing Organization Address [facility] Co de Phone Number [facility] [address] [place] [address], [place] [phone] * MR Brain wo and w Contrast (01/24/2024 4:31 PM EST) Anatomical Region Laterality Modality Head and Neck Magnetic Resonan ce 01/24/2024 4:44 PM EST Impressions 01/24/2024 5:17 PM EST No acute intracranial process seen. No abnormal parenchymal, dural or meningeal enhancement seen. The exam however is ??limited secondary to patient motion -------- FINAL REPORT -------- Dictated By: Francois Willett Dictated Date: 01/24/2024 16:44 ET Assigned Physician: Francois Willett Reviewed and Electronically Signed By: Francois Willett Signed Date: 01/24/2024 17:17 ET Workstation ID: [id number] Transcribed By: Self Edit Transcribed Date: 01/24/2024 16:44 ET Narrative 01/24/2024 5:17 PM EST EXAMINATION: MRI brain without and with contrast. CLINICAL INDICATIONS: AMS. Question encephalitis/meningitis. COMPARISON: CT brain 2024. TECHNIQUE: Routine MRI sequences of brain were obtained without and with IV 17 mL dotarem injection. Patient was scanned multiple times due to patient motion. Images are less than optimal. FINDINGS: Exam is limited secondary to patient motion. There is no restricted diffusion seen to suspect an acute ischemic changes or acute infarct. There is no magnetic susceptibility artifact seen to suspect any acute or chronic hemorrhagic products or large calcification. Scattered T2 FLAIR foci is seen in the periventricular white matter both cerebral hemispheres but no enhancement seen suggestive of chronic small vessel ischemic changes. The lateral ventricles are symmetrical but mildly enlarged. Post contrast images are limited secondary to patient motion. No obvious meningeal or dural enhancement or thickening seen. These bone marrow signal in the scalp soft tissues are normal. Bilateral paranasal sinuses are well-aerated. Normal symmetric bilateral optic globes, optic nerves and periorbital soft tissues. Normal flow-void signal is seen in major cerebral vasculature however limited. Procedure Note Francois Willett MD - 01/24/2024 EXAMINATION: MRI brain without and with contrast. CLINICAL INDICATIONS: AMS. Question encephalitis/meningitis. COMPARISON: CT brain 2024. TECHNIQUE: Routine MRI sequences of brain were obtained without and withIV 17 mL dotarem injection. Patient was scanned multiple times due topatient motion. Images are less than optimal. FINDINGS: Exam is limited secondary to patient motion. There is norestricted diffusion seen to suspect an acute ischemic changes or acuteinfarct. There is no magnetic susceptibility artifact seen to suspect anyacute or chronic hemorrhagic products or large calcification. Scattered [id number] foci is seen in the periventricular white matter both cerebralhemispheres but no enhancement seen suggestive of chronic small vesselischemic changes. The lateral ventricles are symmetrical but mildlyenlarged. Post contrast images are limited secondary to patient motion. Noobvious meningeal or dural enhancement or thickening seen. These bonemarrow signal in the scalp soft tissues are normal. Bilateral paranasalsinuses are well-aerated. Normal symmetric bilateral optic globes, opticnerves and periorbital soft tissues. Normal flow-void signal is seen inmajor cerebral vasculature however limited. IMPRESSION: No acute intracranial process seen. No abnormal parenchymal, dural or meningeal enhancement seen. The examhowever is limited secondary to patient motion -------- FINAL REPORT -------- Dictated By: Francois Willett Dictated Date: 01/24/2024 16:44 ET Assigned Physician: Francois Willett Reviewed and Electronically Signed By: Francois Willett Signed Date: 01/24/2024 17:17 ET Workstation ID: [id number] Transcribed By: Self Edit Transcribed Date: 01/24/2024 16:44 ET Satnam Jordanjazmine DO IMG MRI PROCEDURES * Lipase (01/24/2024 1:31 PM EST) Only the most recent of2 resultswithin the time period is included. Lipase 50 13 - 75 unit/L LAB CHEMISTRY METHOD 01/24/2024 2:42 PM EST [facility] Blood Venous blood specimen / Unknown Venipuncture / Unknown 01/24/2024 1:31 PM EST 01/24/2024 1:38 PM EST Aylin Louis MD LAB BLOOD ORDERABLES Performing Organization Address City/[facility]/ZIP Co de Phone Number [facility] [address] [place] [address], [place] [phone] * Lactate (01/24/2024 4:01 AM EST) Only the most recent of3 resultswithin the time period is included. Lactate 1.8 0.4 - 2.0 mmol/L LAB CHEMISTRY METHOD 01/24/2024 4:38 AM EST [facility] Blood Venous blood specimen / Unknown Venipuncture / Unknown 01/24/2024 4:01 AM EST 01/24/2024 4:07 AM EST Papi HARVEY LAB BLOOD ORDERABLES Performing Organization Address City/[facility]/ZIP Co de Phone Number [facility] [address] [place] [address], [place] [phone] * (ABNORMAL) Procalcitonin (01/23/2024 6:25 AM EST) Only the most recent of2 resultswithin the time period is included. Procalcitonin 0.25(H) <=0.16 ng/mL LAB CHEMISTRY METHOD 01/23/2024 9:56 AM EST [facility] Blood Venous blood specimen / Unknown Venipuncture / Unknown 01/23/2024 6:25 AM EST 01/23/2024 6:43 AM EST [facility] - 01/23/2024 9:56 AM EST Procalcitonin > 2.00 ng/ml: Procalcitonin Levels above 2.00 ng/ml, on the first day of ICU admission represent a high risk for progression to severe sepsis and/or septic shock. Procalcitonin < 0.50 ng/ml: Procalcitonin levels below 0.50 ng/ml on the first day of ICU admission represent a low risk for progression to severe sepsis and/or septic shock. Concentrations <0.5 ng/mL do not exclude an infection, on account of local ized infections (without systemic signs) which can be associated with such low concentrations, or a systemic infection in its initial stages (<6 hours). Furthermore, increased procalcitonin can occur without infection. PCT concentrations between 0.5 and 2.0 ng/mL should be interpreted taking into account the patient's history. It is recommended to retest PCT within 6-24 hours if any concentrations <2.0 ng/mL are obtained. Papi HARVEY LAB BLOOD ORDERABLES Performing Organization Address City/State/[facility] Co de Phone Number [facility] [address] [place] [address], * (ABNORMAL) Albumin (01/23/2024 6:25 AM EST) Pathologist [facility] Albumin 3.1(L) 3.2 - 5.0 g/dL LAB CHEMISTRY METHOD 01/23/2024 7:15 AM EST [facility] Blood Venous blood specimen / Unknown Venipuncture / Unknown 01/23/2024 6:25 AM EST 01/23/2024 6:45 AM EST Papi Loyd PA LAB BLOOD ORDERABLES [facility] [address] [place] [address], * (ABNORMAL) Metanephrines, plasma free (2024 3:53 PM EST) Metanephrines Free 99(H) < OR = 57 pg/mL 01/31/2024 7:40 PM EST [facility] Comment: This test was developed and its analytical performance characteristics have been determined by [employer]. It has not been cleared or approved by FDA. This assay has been validated pursuant to the CLIA regulations and is used for clinical purposes. Normetanephrine Free 505(H) < OR = 148 pg/mL 01/31/2024 7:40 PM EST [facility] Comment: This test was developed and its analytical performance characteristics have been determined by [employer]. It has not been cleared or approved by FDA. This assay has been validated pursuant to the CLIA regulations and is used for clinical purposes. Total, Free (MN + NMN) 604(H) < OR = 205 pg/mL 01/31/2024 7:40 PM EST [facility] Comment: Elevations > 4-fold upper reference range: strongly suggestive of a pheochromocytoma(1). Elevations >1 - 4-fold upper reference range: significant but not diagnostic, may be due to medications or stress. Suggest running 24 hr urine fractionated metanephrines and serum Chromogranin A for confirmation. Reference: (1) Tarah Gold et al, Plasma Chromogranin A or Urine Fractionated Metanephrines Follow-Up Testing Improves the Diagnostic Accuracy of Plasma Fractionated Metanephrines for Pheochromocytoma. The Journal of Clinical Endocrinology and Metabolism 93 (1),91-95, 2008. For additional information, please refer to http://education.[email or web address].TrackIF/faq/MetFractFree (This link is being provided for informational/educational purposes only.) This test was developed and its analytical performance characteristics have been determined by [employer]. It has not been cleared or approved by FDA. This assay has been validated pursuant to the CLIA regulations and is used for clinical purposes. Test Performed at: [employer] [facility] [address] [place], [place] ??[address] ? I Amanda TREVINO, PhD, ROSA Blood Venous blood specimen / Unknown Venipuncture / Unknown 2024 3:53 PM EST 2024 4:00 PM EST Satnam Stephenson DO LAB BLOOD ORDERABLES [facility] [address] [place] [address] * (ABNORMAL) Drug abuse screen 8a panel, urine (2024 3:43 PM EST) Amphetamine Screen, Ur Negative Negative LAB CHEMISTRY METHOD 4 5:17 PM [facility] Comment:Certain OTC medicati ons containing ephedrine, phenylephrine, pseudoephedrine and phenylpropanolamine can cause false positive results. Barbiturate Screen, Ur Negative Negative LAB CHEMISTRY METHOD 4 5:17 PM [facility] Benzodiazepine Screen, Ur Negative Negative LAB CHEMISTRY METHOD 4 5:17 PM [facility] Cocaine Screen, Ur Negative Negative LAB CHEMISTRY METHOD 4 5:17 PM [facility] Opiate Screen, Ur Positive(A ) Negative LAB CHEMISTRY METHOD 4 5:17 PM [facility] Cannabinoid (THC) Screen, Ur Negative Negative LAB CHEMISTRY METHOD 4 5:17 PM [facility] Comment:Specimens from patie nts taking pantoprazole sodium (Protonix) have been shown to produce false positive results. Oxycodone Screen, Ur Positive(A ) Negative LAB CHEMISTRY METHOD 4 5:17 PM [facility] Fentanyl, Ur Negative Negative LAB CHEMISTRY METHOD 4 5:17 PM EST [facility] Urine Urine specimen obtained by clean catch procedure / Unknown Non-blood Collection / Unknown 2024 3:43 PM EST 2024 3:45 PM EST Narrative [facility] - 2024 5:17 PM EST Assay cutoffs: Amphetamines ? 1000 ng/mL Barbiturates ?200 ng/mL Benzodiazepines ?? 200 ng/mL Cocaine ? 300 ng/mL Fentanyl ?1 ng/mL Opiates ? 300 ng/mL Oxycodone ? 100 ng/mL THC ?50 ng/mL Semi-quantitative assay for screening purposes only. Unconfirmed screening result should not be used for non-medical purposes. *ALTERNATE METHOD CONFIRMATION DONE UPON REQUEST ONLY* Satnam Stephenson DO LAB URINE ORDERABLES Performing Organization Address [facility] Co de Phone Number [facility] [address] [place] [address], * (ABNORMAL) Lactate, with reflex (2024 3:06 PM EST) Only the most recent of2 resultswithin the time period is included. LACTIC ACID 2.5(H) 0.4 - 2.0 mmol/L LAB CHEMISTRY METHOD 2024 3:47 PM EST [facility] Blood Venous blood specimen / Unknown Venipuncture / Unknown 2024 3:06 PM EST 2024 3:10 PM EST Vinh Anderson MD LAB BLOOD ORDERABLES Performing Organization Address [facility]/ZIP Co de Phone Number [facility] [address] [place] [address], [place] [phone] * Treponema pallidum antibody with reflex to RPR and particle agglutination (2024 3:06 PM EST) Pathologist [facility] T. Pallidum Antibodies Negative Negative LAB CHEMISTRY METHOD 2024 4:09 PM EST [facility] Blood Venous blood specimen / Unknown Venipuncture / Unknown 2024 3:06 PM EST 2024 3:11 PM EST Vinh Anderson MD LAB BLOOD ORDERABLES Performing Organization Address City/[facility]/ZIP Co de Phone Number [facility] [address] [place] [address], * Vitamin B12 and folate (2024 3:06 PM EST) [facility] Vitamin B-12 643 250 - 900 pcg/mL LAB CHEMISTRY METHOD 2024 4:13 PM EST [facility] Folate 16.6 2.8 - 17.0 ng/ml LAB CHEMISTRY METHOD 2024 4:13 PM [facility] Blood Venous blood specimen / Unknown Venipuncture / Unknown 2024 3:06 PM EST 2024 3:11 PM EST Narrative Authorizing Provider Result Eugene Anderson MD LAB BLOOD ORDERABLES Performing Organization Address City/[facility]/ZIP Co de Phone Number [facility] [address] [place] [address], [place] [phone] * Prolactin (2024 3:06 PM EST) Only the most recent of2 resultswithin the time period is included. Pathologist [facility] Prolactin 6.50 2.50 - 17.40 ng/mL LAB CHEMISTRY METHOD 2024 4:03 PM EST [facility] Blood Venous blood specimen / Unknown Venipuncture / Unknown 2024 3:06 PM EST 2024 3:11 PM EST Satnam Stephenson DO LAB BLOOD ORDERABLES [facility] [address] [place] [address], * CK total and CKMB (2024 3:06 PM EST) Total CK 51 22 - 269 unit/L LAB CHEMISTRY METHOD 2024 4:03 PM EST [facility] CK-MB 1.5 1.0 - 3.6 ng/mL LAB CHEMISTRY METHOD 2024 4:03 PM EST [facility] CK-MB Index 0.0 0.0 - 5.0 LAB CHEMISTRY METHOD 2024 4:03 PM EST [facility] Blood Venous blood specimen / Unknown Venipuncture / Unknown 2024 3:06 PM EST 2024 3:11 PM EST Vinh Anderson MD LAB BLOOD ORDERABLES Performing Organization Address City/[facility]/ZIP Co de Phone Number [facility] [address] [place] [address], [place] [phone] * Cortisol (2024 3:06 PM EST) Cortisol 53.7 mcg/dL LAB CHEMISTRY METHOD 2024 4:15 PM EST [facility] Blood Venous blood specimen / Unknown Venipuncture / Unknown 2024 3:06 PM EST 2024 3:11 PM EST Narrative [facility] - 2024 4:15 PM EST CORTISOL REFERENCE RANGE ?? 8 AM SPEC: ??5.0-23.0 mcg/dL ?? 4 PM SPEC: ??3.0-16.0 mcg/dL ?? 8 PM SPEC: ??<5.0 mcg/dL Satnam Stephenson DO LAB BLOOD ORDERABLES Performing Organization Address [facility]/ZIP Co de Phone Number [facility] [address] [place] [address], [place] [phone] * Ammonia (2024 3:06 PM EST) [facility] Ammonia 22 11 - 35 mcmol/L LAB CHEMISTRY METHOD 2024 3:50 PM EST [facility] Blood Venous blood specimen / Unknown Venipuncture / Unknown 2024 3:06 PM EST 2024 3:10 PM EST Vinh Anderson MD LAB BLOOD ORDERABLES Performing Organization Address [facility] Co de Phone Number [facility] [address] [place] [address], [place] [phone] * Ethanol (2024 3:06 PM EST) [facility] Ethanol Level <3 0 - 10 mg/dL LAB CHEMISTRY METHOD 2024 4:03 PM EST [facility] Blood Venous blood specimen / Unknown Venipuncture / Unknown 2024 3:06 PM EST 2024 3:11 PM EST Satnam Stephenson DO LAB BLOOD ORDERABLES Performing Organization Address [facility] Co de Phone Number [facility] [address] [place] [address], [place] [phone] * Respiratory virus panel molecular study (2024 2:47 PM EST) [facility] Adenovirus Detection by PCR Not Detected Not Detected LAB MICROBIOLOGY METHOD 2024 3:51 PM EST [facility] Influenza A PCR Not Detected Not Detected LAB MICROBIOLOGY METHOD 2024 3:51 PM EST [facility] Influenza B PCR Not Detected Not Detected LAB MICROBIOLOGY METHOD 2024 3:51 PM [facility] Coronavirus 229E Not Detected Not Detected LAB MICROBIOLOGY METHOD 2024 3:51 PM [facility] Coronavirus HKU1 Not Detected Not Detected LAB MICROBIOLOGY METHOD 2024 3:51 PM [facility] Coronavirus OC43 Not Detected Not Detected LAB MICROBIOLOGY METHOD 2024 3:51 PM [facility] Coronavirus NL63 Not Detected Not Detected LAB MICROBIOLOGY METHOD 2024 3:51 PM [facility] Parainfluenza Virus 1 Not Detected Not Detected LAB MICROBIOLOGY METHOD 2024 3:51 PM [facility] Parainfluenza Virus 2 Not Detected Not Detected LAB MICROBIOLOGY METHOD 2024 3:51 PM [facility] Parainfluenza Virus 3 Not Detected Not Detected LAB MICROBIOLOGY METHOD 2024 3:51 PM [facility] Parainfluenza Virus 4 Not Detected Not Detected LAB MICROBIOLOGY METHOD 2024 3:51 PM [facility] RSV PCR Not Detected Not Detected LAB MICROBIOLOGY METHOD 2024 3:51 PM [facility] Human Metapneumovirus A and B Not Detected Not Detected LAB MICROBIOLOGY METHOD 2024 3:51 PM [facility] Rhinovirus/Entero virus Not Detected Not Detected LAB MICROBIOLOGY METHOD 2024 3:51 PM [facility] Bordetella pertussis Not Detected Not Detected LAB MICROBIOLOGY METHOD 2024 3:51 PM [facility] Bordetella parapertussis Not Detected Not Detected LAB MICROBIOLOGY METHOD 2024 3:51 PM [facility] Mycoplasma pneumo by PCR Not Detected Not Detected LAB MICROBIOLOGY METHOD 2024 3:51 PM EST [facility] Chlamydia pneumoniae Not Detected Not Detected LAB MICROBIOLOGY METHOD 2024 3:51 PM EST [facility] SARS COV-2 Not Detected Not Detected LAB MICROBIOLOGY METHOD 2024 3:51 PM EST [facility] Swab Both anterior nares / Unknown Non-blood Collection / Unknown 2024 2:47 PM EST 2024 2:50 PM EST Narrative [facility] - 2024 3:51 PM EST Testing was performed using the [employer] Respiratory Pathogen PCR Assay. All results must be correlated with the clinical findings. Results should not be used as the sole basis for diagnosis. False Negative results may occur from the presence of sequence variants in the region targeted by the assay or the presence of inhibitors. Results may be affected by concurrent antiviral/antimicrobial therapy or levels of organisms that are below the limit of detection. Satnam Stephenson DO LAB MICROBIOLOGY - G ENERAL ORDERABLES [facility] [address] [place] [address], * CT Head wo Contrast (2024 11:35 AM EST) Anatomical Region Laterality Modality Head and Neck Computed Tomogra phy 2024 11:5 0 AM EST Impressions 2024 11:54 AM EST 1. ??Brain appears within normal limits for age. 2. ??Findings suggestive of chronic left sphenoid sinus disease -------- FINAL REPORT -------- Dictated By: Jordon Baig Dictated Date: 2024 11:50 ET Assigned Physician: Jordon Baig Reviewed and Electronically Signed By: Jordon Baig Signed Date: 2024 11:54 ET Workstation ID: [id number] Transcribed By: Self Edit Transcribed Date: 2024 11:50 ET Narrative 2024 11:54 AM EST EXAM: ??CT brain without contrast HISTORY: ??Generalized weakness COMPARISON: ??None. TECHNIQUE: ??Volumetric MDCT imaging of the brain was done from the skull base to the vertex with multiplanar reformatted reconstructions. ?The following dose reduction technique was used: Dose was minimized by utilizing adaptive iterative reconstruction. DOSE: CTDIvol: 65.3/47.0mGy. ??Total exam DLP: 1000.3mGy-cm FINDINGS: ??No intracranial hemorrhage is visualized. ??There is mild volume loss as well as scattered regions of decreased attenuation within the white matter that are most commonly seen with chronic small vessel ischemic disease. ??The ventricles are normal in size. ??Midbrain and cerebellum appear normal. Surrounding soft tissues appear normal. ??Limited views of the orbits appear within normal limits. Calvarium is intact. ??No acute deformity. ??Mastoid air cells are patent. ??Occlusion of the left sphenoid sinus as well as surrounding sclerosis which could represent chronic sinusitis. Procedure Note Jordon Baig MD - 2024 EXAM: CT brain without contrast HISTORY: Generalized weakness COMPARISON: None. TECHNIQUE: Volumetric MDCT imaging of the brain was done from the skullbase to the vertex with multiplanar reformatted reconstructions. ?Thefollowing dose reduction technique was used: Dose was minimized byutilizing adaptive iterative reconstruction. DOSE: CTDIvol: 65.3/47.0mGy. Total exam DLP: 1000.3mGy-cm FINDINGS: No intracranial hemorrhage is visualized. There is mild volumeloss as well as scattered regions of decreased attenuation within thewhite matter that are most commonly seen with chronic small vesselischemic disease. The ventricles are normal in size. Midbrain andcerebellum appear normal. Surrounding soft tissues appear normal. Limited views of the orbitsappear within normal limits. Calvarium is intact. No acute deformity. Mastoid air cells are patent.Occlusion of the left sphenoid sinus as well as surrounding sclerosiswhich could represent chronic sinusitis. IMPRESSION: 1. Brain appears within normal limits for age. 2. Findings suggestive of chronic left sphenoid sinus disease -------- FINAL REPORT -------- Dictated By: Jordon Baig Dictated Date: 2024 11:50 ET Assigned Physician: Jordon Baig Reviewed and Electronically Signed By: Jordon Baig Signed Date: 2024 11:54 ET Workstation ID: [id number] Transcribed By: Self Edit Transcribed Date: 2024 11:50 ET Vinh Anderson MD IMG CT PROCEDURES * Blood Culture, Peripheral Draw #1 (2024 10:36 AM EST) Only the most recent of2 resultswithin the time period is included. [facility] Culture, Blood No growth at 5 days LAB MICROBIOLOGY METHOD 01/27/2024 11:01 AM [facility] Blood Venous blood specimen / Unknown Venipuncture / Unknown 2024 10:36 AM EST 2024 10:40 AM EST Vinh Anderson MD LAB MICROBIOLOGY - G ENERAL ORDERABLES [facility] [facility] [address] [place] [address], * (ABNORMAL) Urinalysis with reflex microscopic and culture (2024 10:11 AM EST) [facility] Specific [place] Urine 1.015 1.003 - 1.030 LAB URINALYSIS - AUTOMATED METHOD 2024 10:31 AM [facility] pH, Urine 6.5 5.0 - 8.0 pH LAB URINALYSIS - AUTOMATED METHOD 2024 10:31 AM [facility] Leukocytes, Urine Negative Negative LAB URINALYSIS - AUTOMATED METHOD 2024 10:31 AM [facility] Nitrite, Urine Negative Negative LAB URINALYSIS - AUTOMATED METHOD 2024 10:31 AM [facility] Protein, Urine 100(A) <=Trace mg/dL LAB URINALYSIS - AUTOMATED METHOD 2024 10:31 AM [facility] Glucose, Urine 500(A) Negative mg/dL LAB URINALYSIS - AUTOMATED METHOD 2024 10:31 AM [facility] Ketones, Urine Negative Negative mg/dL LAB URINALYSIS - AUTOMATED METHOD 2024 10:31 AM [facility] Urobilinogen, Urine 1.0 0.2 - 1.0 mg/dL LAB URINALYSIS - AUTOMATED METHOD 2024 10:31 AM [facility] Bilirubin, Urine Negative Negative LAB URINALYSIS - AUTOMATED METHOD 2024 10:31 AM [facility] Blood, Urine Negative Negative LAB URINALYSIS - AUTOMATED METHOD 2024 10:31 AM [facility] RBC, Urine 2.5 0 - 4 /HPF LAB URINALYSIS - AUTOMATED METHOD 2024 10:31 AM [facility] WBC, Urine 1.2 0 - 4 /HPF LAB URINALYSIS - AUTOMATED METHOD 2024 10:31 AM [facility] Squamous Epithelial, Urine 32 0 - 60 /LPF LAB URINALYSIS - AUTOMATED METHOD 2024 10:31 AM [facility] Bacteria, Urine Negative Negative /HPF LAB URINALYSIS - AUTOMATED METHOD 2024 10:31 AM [facility] Hyaline Casts, Urine 2.8 0 - 3 /LPF LAB URINALYSIS - AUTOMATED METHOD 2024 10:31 AM [facility] Urine Urine specimen obtained by clean catch procedure / Unknown Non-blood Collection / Unknown 2024 10:11 AM EST 2024 10:14 AM EST Vinh Anderson MD LAB URINE ORDERABLES Performing Organization Address [facility]/ZIP Co de Phone Number [facility] [address] [place] [address], * Beta hydroxybutyrate (2024 10:09 AM EST) Beta-Hydroxybu tyrate 2.0 0.2 - 2.8 mg/dL LAB CHEMISTRY METHOD 2024 10:57 AM EST [facility] Blood Venous blood specimen / Unknown Venipuncture / Unknown 2024 10:09 AM EST 2024 10:15 AM EST Narrative Authorizing Provider Result Eugene Anderson MD LAB BLOOD ORDERABLES Performing Organization Address [facility] Co de Phone Number [facility] [address] [place] [address], * Thyroid Stimulating Hormone (TSH) (2024 10:09 AM EST) TSH 2.29 0.40 - 4.00 mcIU/mL LAB CHEMISTRY METHOD 2024 10:52 AM EST [facility] Blood Venous blood specimen / Unknown Venipuncture / Unknown 2024 10:09 AM EST 2024 10:15 AM EST Narrative Authorizing Provider Result Eugene Anderson MD LAB BLOOD ORDERABLES Performing Organization Address City/[facility]/ZIP Co de Phone Number [facility] [address] [place] [address], * T4, Free (2024 10:09 AM EST) Free T4 1.62 0.70 - 1.80 ng/dL LAB CHEMISTRY METHOD 2024 10:52 AM EST [facility] Blood Venous blood specimen / Unknown Venipuncture / Unknown 2024 10:09 AM EST 2024 10:15 AM EST Vinh Anderson MD LAB BLOOD ORDERABLES [facility] ([facility] [address] [place] [address], * ECG-Annotated (2024) Provider Onbase MD ECG ORDERABLES * (ABNORMAL) Lipid panel (09/21/2023) LDL/HDL Ratio 4 0 - 4 Triglycerides 240(A) 0 - 150 mg/dL Cholesterol 193 0 - 200 mg/dL HDL 47 40 mg/dL LDL Cholesterol 98 0 - 100 mg/dL Blood Venous blood specimen / Unknown Historical Provider LAB BLOOD ORDERAB LES * CT LUNG SCREENING LOW DOSE (12/28/2021 9:20 AM EDT) Anatomical Region Laterality Modality Computed Tomogra phy 12/27/2021 3:38 PM EDT Narrative 12/28/2021 9:20 AM EDT [facility] Diagnostic Imaging Department [address] [place] [address] Patient: ??PAYTON OSUNA ?/Age/Sex: 1950 - 71 - M Unit#: ??[id number] ? Location/Status: ??SPDICATLS/REG CLI ? Mnemonic/Ordering Site: ??CTLUNGLD/SPCT Ordering Physician: ??MAJOR HINSON MD CT Lung Screening Low Dose - 12/27/21 - INDICATION: 108 pack-year smoking history, stopped smoking 5 years ago FINDINGS: Low-dose CT scan of the chest obtained as a lung cancer screening study. Compared to multiple prior studies most recent from December 13, 2020 Scanner: Sidewalk speed 64 slice VCT Dose reduction technique: ASIR (Adaptive statistical iterative reconstruction) and/or AEC (automated exposure control) Dose: total exam DLP 182 mGY per cm Lung: No infiltrates or effusions. No new pulmonary nodules or masses. Mild scarring posteriorly within the right upper lobe, unchanged. 1 to 2 mm scattered peripheral upper lobe nodules, unchanged. Lymph nodes: No thoracic lymphadenopathy. Mediastinum: Within normal limits. Bony structures: Within normal limits. Mild bilateral gynecomastia again noted. IMPRESSION: No new or suspicious pulmonary nodules. No significant change from the prior study. Lung RADS 2, recommend low-dose screening chest CT in 12 months. G0297, G9637, G9557, G9551 Dictating Physician: ??ANISA WHITFIELD MD Electronically Signed by: ??ANISA WHITFIELD MD Dic Date/Time: ??12/28/21911 Sign date/Time: ??12/28/21919 Procedure Note Anisa Whitfield MD - 03/08/2022 [facility] Diagnostic Imaging Department [address] [place] [id number] Patient: PAYTON OSUNA/Age/Sex: 1950 - 71 - M Unit#: [id number] Location/Status: SPDICATLS/REG CLI Mnemonic/Ordering Site: [facility] Ordering Physician: MAJOR HINSON MD CT Lung Screening Low Dose - 12/27/21 - INDICATION: 108 pack-year smoking history, stopped smoking 5 years ago FINDINGS: Low-dose CT scan of the chest obtained as a lung cancerscreening study. Compared to multiple prior studies most recent from November Scanner: Sidewalk speed 64 slice VCT Dose reduction technique: ASIR (Adaptive statistical iterativereconstruction) and/or AEC (automated exposure control) Dose: total exam DLP 182 mGY per cm Lung: No infiltrates or effusions. No new pulmonary nodules or masses.Mild scarring posteriorly within the right upper lobe, unchanged. 1 to 2 mmscattered peripheral upper lobe nodules, unchanged. Lymph nodes: No thoracic lymphadenopathy. Mediastinum: Within normal limits. Bony structures: Within normal limits. Mild bilateral gynecomastia again noted. IMPRESSION: No new or suspicious pulmonary nodules. No significant change from the prior study. Lung RADS 2, recommend low-dose screening chest CT in 12 months. G0297, G9637, G9557, G9551 Dictating Physician: ANISA WHITFIELD MD Electronically Signed by: ANISA WHITFIELD MD Dic Date/Time: 12/28/21911 Sign date/Time: 12/28/21919 Major Hinson MD IMG CT PROCEDURES * Colonoscopy (05/03/2018) Colonoscopy abstracted, no interpretation Anatomical Region Laterality Modality Other Historical Provider MD KACI Edwards * Hepatitis C Screening (04/05/2013) Hepatitis C Screening abstracted Historical Provider MD KACI Edwards from Last 3 Months or Most Recently Relevant to Health Maintenance Advance Directives Documents on File Type Date Recorded Patient Recreation Technician Expl anation Advance Directives and Living Will 02/13/2024 8:30 AM Health Care Proxy Advance Directives and Living Will 02/08/2024 2:58 PM Juliana Osuna Health Care Proxy * Full Code - Default (Latest Code Status on File) Date Activated Date Inactivated Comments 02/17/2024 12:36 AM 02/17/2024 1:43 PM This is ord er is used when code status has not been discussed with the patient, or code status is otherwise unknown/unconfirmed To update the patient's code status, place a code status order. Do not modify or discontinue any currently active code status orders. * Full Code - Default Date Activated Date Inactivated Comments 2024 10:33 PM 02/12/2024 4:54 PM This is or scarlett is used when code status has not been discussed with the patient, or code status is otherwise unknown/unconfirmed To update the patient's code status, place a code status order. Do not modify or discontinue any currently active code status orders. 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
--- OUTSIDE RECORDS SUMMARY | 2024-04-18 14:24 | XMS_ITS | Encounter Summary ---
Author Organization [facility] Address [address] [place] [address] Care Team Providers Care Chemical Processor Name Role Phone Praful Davenport MD Primary Care Provider [phone] Reason for Visit * Reason Onset Date Comments Hospital Follow-up 03/31/2024 Encounter Details Date Type Department Care Team (Late st Contact Info) Description 03/31/2024 Telephone Adult Medicine [address] [phone] Praful Davenport MD [address] [place] [address] Hospital Follow-up Social History Tobacco Use Types Packs/Day Years [...] as of this encounter Progress Notes * Consuelo Burnett RN - 04/01/2024 8:36 AM EST Called and spoke to pt.'s and pt. Pt. Needed to cancel his hospital; follow up apt. Because hehand to go [facility] for a procedure for urination issues , he currently has a urinary catheter in . New hospital follow apt. Made and advised to call or contact the office with any issues prior to that. Pt. Will make a follow up apt. With urology today for Wed. To have follow and catheter removed. No other issues currently * Ирина Mann RN - 03/31/2024 5:08 PM EST Can wait for tomorrow * Hilario Hernandez - 03/31/2024 4:48 PM EST Patient had appt 04/01/24 and can't make it he needs to r/s wants to do a month out. documented in this encounter Plan of Treatment Upcoming Encounters Date Type Department Care Team (Late st Contact Info) Description 04/22/2024 2:00 PM EST Office Visit Orthopedic Surgery - [place] [address] [phone] Jordon Bardales, DPHomer [address] [address] 04/23/2024 10:30 AM EST Office Visit [address] [phone] Praful Davenport MD [address] [place] [address] 05/27/2024 1:15 PM EDT Office Visit [address] [phone] Praful Davenport MD [address] [place] [address] 06/06/2024 12:30 PM EDT Appointment [facility] Endoscopy [address] [place] [phone] Edison Ledezma MD [address] [address] 08/22/2024 1:00 PM EDT Office Visit [address] [phone] Praful Davenport MD [address] [place] [address] documented as of this encounter Visit Diagnoses Not on filedocumented in this encounter Care Teams Chemical Processor Relationship Specialty Start Date End Date Praful Davenport MD [address] [place] [address] PCP - General Internal Medicine 01/22/24 documented as of this encounter
--- NOTE | 2024-04-18 14:39 | MHC.OFFVIS ---
Intake Visit Reasons: TURP- follow up Intake Note: Patient is present for TURP F/U Urology Medication:TAMSULOSIN Antibiotic Allergy:CIPROFLOXACIN,ERYTHROMYCIN Blood Thinner:ASPIRIN Allergies acetaminophen [ACETAMINOPHEN] Allergy (Unknown, Verified 04/18/24 14:41) patient does not know reaction ciprofloxacin [From CIPRO] Allergy (Unknown, Verified 04/18/24 14:41) patient does not know reaction codeine [CODEINE] Allergy (Unknown, Verified 04/18/24 14:41) patient does not know reaction erythromycin base [ERYTHROMYCIN BASE] Allergy (Unknown, Verified 04/18/24 14:41) patient does not know reaction morphine [MORPHINE] Allergy (Unknown, Verified 04/18/24 14:41) patient does not know reaction HPI Comments Details: Dimitri is a pleasant male. He is a patient of Dr Davenport. He has seen flowing urologic conditions - prostatitis - hypogonadism - diabetes with neuropathy - bladder thickening Follow-up plasma button Low PVR Doing well Feels his voiding is greatly improved Follow-up 6 months PVR Lower urinary tract symptoms Detrusor hypertrophy with impaired contractility Prior therapy tamsulosin Hypogonadism: Side effects with significant pelvic pain He presents today for further evaluation and followup of his hypogonadism, - had low T with treatment many years - has trialled different administration protocols with topical related and injectable November 2019, skin allergy to patches and gels Initial symptoms include erectile dysfunction Yes decreased libido Yes change in mood/depression Yes in muscle size/strength Yes increased fatigue/malaise Yes The onset of symptoms has been gradual. Laboratory results 06/04 T 130 - PSA < 0.1, 07/05 T 150, 07/05 T 313, 09/04 T 545, 01/04 T 277, HCT 45, 09/07 500 - 01/05 898, 01/06 PSA 0.4 T 400, 05/11 T 143 P 0.2, 10/08 T 233, 04/11 180 Current therapy includes gel/cream exogenous testosterone - does not like, Testopel not effective Prior therapy includes testosterone [facility] Medical History (Updated 03/27/24 @ 11:57 by Karina Mantilla RN) Carotid stenosis Facet syndrome PVD (peripheral vascular disease) Thyroid cancer Peripheral neuropathy Anxiety Depression COPD (chronic obstructive pulmonary disease) Closed compression fracture of thoracolumbar vertebra Chronic renal insufficiency GERD (gastroesophageal reflux disease) Elevated cholesterol Hypothyroid Diabetes mellitus, type II HTN (hypertension) Erectile dysfunction due to arterial insufficiency Hypogonadism in male Infective urethritis Urethral stricture Prostatitis Surgical History (Updated 03/27/24 @ 11:57 by Karina Mantilla RN) History of esophagogastroduodenoscopy (EGD) Hx of hand surgery H/O colonoscopy Hx of bilateral cataract extraction History of back surgery Hx of cystoscopy History of carpal tunnel release History of back surgery History of prostate surgery Hx of hernia repair Social History Are you a primary respiratory care practitioner to a significant other at home: No Do you presently have visiting nurse or other home services: No Comment: mild burning Patient Tobacco Use Status: Former Tobacco user Tobacco use type: Cigarette Years Smoked: 50 Review of Systems Const Denies chills and Denies fever(s) Card Reports no additional complaints and Denies syncope Resp Denies cough GI Denies abdominal pain and Denies heartburn Reports as per HPI and Denies change in libido Neuro Denies syncope Psych Denies change in libido Endo Denies change in libido Physical Exam Const General: cooperative, healthy appearing, comfortable and no acute distress Orientation/consciousness: patient oriented x3 HEENT Face and sinus: Yes normal facial exam Mouth: moist mucous membranes Neck Neck: Yes normal visual inspection, Yes full ROM and Yes trachea midline Chest Chest palpation & inspection: normal inspection of the chest Resp Effort & Inspection: normal respiratory effort, able to speak in complete sentences and no respiratory distress GI Inspection: Yes normal to inspection Back/Spine/Pelvis Cervical Spine: normal cervical lordosis Thoracic/Lumbar Spine: thoracic and lumbar spine normal to inspection Skin General skin exam: no rashes or lesions noted Neuro General: patient oriented x3, gait normal, tone normal and moves all extremities Extrem General: Yes normal to inspection and Yes capillary refill normal Assessment & Plan Assessment & Plan (1) Pelvic pain in male: Code(s): R10.2 - Pelvic and perineal pain Category: Medical (2) Bladder outlet obstruction: Code(s): N32.0 - Bladder-neck obstruction Category: Medical Plan Six-month follow-up PVR Patient Instructions: Imaging studies, laboratory and physical exam results were discussed and reviewed in detail. No major barriers to patient understanding were identified. An opportunity to ask questions regarding the treatment plan was provided. All questions were answered. The patient expressed understanding and agreement with the above treatment plan. The patient is aware they should contact our office by phone for worsening of their current condition or the appearance of new urologic symptoms. Compliance is encouraged with any medications and followup testing that is ordered. It is a privilege to participate in the urologic care of your patient. If you have any questions or concerns regarding treatment for the above conditions, or other urologic issues, please do not hesitate to contact me. The office telephone contact is [phone]. This note is constructed using voice recognition software. While every effort has been made to ensure accuracy supervisor drawing errors may have been included. Yours sincerely, Dr Venkata Katz MD, [facility] - Urology Providers of Expert, Compassionate Care for the Genitourinary System Coding Level of Care Code Est Pt Level 3 (93312) Diagnoses Pelvic pain in male R10.2 Bladder outlet obstruction N32.0
== END 2024-04-18 15:19 | disposition home or self-care (01) ==
LOC: HO.HUSH 14:21
PROVIDERS: PCP Internal Medicine; Visit Provider Urology
DX: R10.2 Pelvic and perineal pain (principal); N32.0 Bladder-neck obstruction
CPT/HCPCS: 99213

== ENCOUNTER → 2024-04-18 14:21 | Outpatient (BNVA) | payer MEDICARE, SELFPAY | PROVIDERS: PCP Internal Medicine; Visit Provider Urology | DX: E29.1 Testicular hypofunction (principal); N32.89 Other specified disorders of bladder; R10.2 Pelvic and perineal pain; N32.0 Bladder-neck obstruction; E11.40 Type 2 diabetes mellitus with diabetic neuropathy, unspecified | CPT/HCPCS: 99212 ==